=== PATIENT | male | born 1985 | race Caucasian/White ===

== ENCOUNTER 2019-06-16 11:25 | Emergency (ER) | payer OTHER, SELFPAY ==
[2019-06-16 11:36] VITALS: BP 175/83; PULSE 67; RESP 18; TEMP 36.6; O2SAT 98; BMI 31.6
[2019-06-16 13:35] VITALS: BP 156/94
--- NOTE | 2019-06-16 13:45 | ED_ITS ---
HPI - Male Genitourinary General: Chief complaint: Urogenital-Male [facility] Time Seen by Provider: 06/16/19 13:31 Source: patient Mode of arrival: ambulatory Limitations: no limitations History of Present Illness: HPI Narrative: Patient is a 33-year-old male who [facility] to ED [facility] that began yesterday; patient states pain began gradually and first noticed after he sat down; he denies testicular swelling or redness; no difficulty urinating, hematuria, dysuria; denies penile discharge, rashes/lesions, new sexual partners, or concern for STDs; no injury/trauma although does remember cutting wood yesterday before it started; patient reports since onset pain has seemed to wax and wane and is improved with lying down Complaint: testicle pain Onset (ago): day(s) Duration: intermittent Location: right testicle Quality: sharp Relieving factors: supine Associated symptoms: Reports no associated symptoms; Deny dysuria, hematuria, nausea, urinary incontinence or vomiting Related Data: Sexually active: Yes (monogamous with ) Review of Systems Const: Denies: fever or chills GI: Denies: abdominal pain, nausea or vomiting : Reports: testicular pain; Denies: flank pain, difficulty urinating, painful urination, urinary frequency, urinary urgency, urinary hesitancy, difficulty starting urination, change in urine stream, urinary incontinence, blood in urine, genital lesion, penile discharge or testicular mass PFSH ED PFSH: Statuses (acute, chronic, etc) shown below reflect problem list status as previously entered and may not be historically accurate Social History Smoking and tobacco status: former smoker Physical Exam Const: COMMON NORMALS: no apparent distress, average body habitus, oriented x3, no limitations, healthy appearing, alert and well nourished GI: COMMON NORMALS: normal to inspection, nondistended, normoactive bowel sounds, soft to palpation, non-tender, no hepatosplenomegaly and no masses PALPATION: Yes soft and Yes no hepatosplenomegaly : COMMON NORMALS: Yes no scrotal swelling and Yes no hernias present MALE GROIN/PERINEUM EXAM: No erythema, No hernia and No inguinal lymphadenopathy PENIS: normal penis MEATUS: meatus normal SCROTUM: Yes tenderness (R superior scotum/R inguinal region), No erythematous, No edematous and No scrotal swelling TESTES: Yes testicular lie normal, No enlarged testicle(s), No testicular swelling, No testicular mass, Yes epididymides normal and No epididymal induration Neuro: COMMON NORMALS: oriented x3 SENSORIUM/ORIENTATION: Yes alert Skin: COMMON NORMALS: no rashes or lesions noted GENERAL SKIN EXAM: no rashes or lesions noted Course Vital Signs: Vital signs: Vital Signs Temperature 97.8 F 06/16/19 11:36 Pulse Rate 80 06/16/19 14:57 Respiratory Rate 16 06/16/19 14:57 Blood Pressure 150/103 06/16/19 14:57 Pulse Oximetry 97 06/16/19 14:57 MDM - Male Lab Data: Labs: Lab Results 06/16/19 Range/Units 14:25 Urine Color Yellow (Yellow) Urine Appearance Clear (CLEAR) Urine pH 5 (5-7) Ur Specific Gravit y 1.020 (1.005-1.030) Urine Protein Neg (Negative) Urine Glucose (UA) Norm (Normal) Urine Ketones Negative (Negative) Urine Occult Blood Neg (Negative) Urine Nitrate Negative (Negative) Urine Bilirubin Neg (NEGATIVE) Urine Urobilinogen Norm (Negative) mg/dL Ur Leukocyte Saiar ase Negative (Negative) Imaging Data: US: Radiologist's impression: [place] [address] Ultrasound Report Signed Patient: Jake Woo Unit #: [id number] : 1985 Age/Sex: 33 / M ADM Date: 06/16/19 Loc: ER Room/Bed: Attending Dr: Ordering Provider/Ordering MD: Patricia Marquez Date of Service: 06/16/19 Procedure(s): US scrotum 54999 Accession Number(s): [id number] Report Number: [id number] WS: [id number] TESTICULAR ULTRASOUND HISTORY: RIGHT testicular pain. COMPARISON: None available. TECHNIQUE: Real-time and color Doppler imaging or utilized to perform a testicular ultrasound. Right testicle: 4.4 cm x 3.5 cm x 2.7 cm. Normal size and echogenicity. No mass or torsion. Normal color Doppler is present throughout. Systolic and diastolic velocities are both present. No significant hydrocele. Right epididymis: Normal epididymis with no increased vascularity. Left testicle: 4.8 cm x 3.1 cm x 2.8 cm. Normal size and echogenicity. No mass or torsion. Normal color Doppler is present throughout. Systolic and diastolic velocities are both present. No significant hydrocele. Left epididymis: Normal epididymis with no increased vascularity. US/US scrotum 50005 IMPRESSION: NORMAL TESTICULAR ULTRASOUND. Dictated By: Priscilla Hebert DO Signed By: Priscilla Hebert DO Signed Date/Time: 06/16/191415 DD/ 141 Discharge Plan Discharge Patient Disposition: Home, Self-Care Clinical Impression: Strain of right inguinal muscle Qualifiers: Encounter type: initial encounter Qualified Code(s): S39.013A - Strain of muscle, fascia and tendon of pelvis, initial encounter Condition: Stable Discharge Orders: Discharge Order (Routine); Ordered 06/16/19 Ordered By: Patricia Marquez Referrals: Jere Ruiz DO [Primary Care Provider] - Discharge Diet: Usual diet Discharge Activity: Increase activity as tolerated Activity Restrictions/Additional Instructions: As discussed return to ED for worsening pain, scrotal redness/swelling, urinary symptoms or any other concerning symptoms. Otherwise follow-up with primary care in 3 to 5 days if pain persists. Discharge Date/Time: 06/16/19 14:59 Coding Level of Care Code ED [employer] Solution Architect for Geronimo Hearn Exam Problem Focused
--- NOTE | 2019-06-16 14:05 | PC.NURSE ---
portable ultrasound at bedside
--- NOTE | 2019-06-16 14:22 | PC.NURSE ---
pt transported to CT, ambulatory with tech
[2019-06-16 14:28] LABS: Add Urine Microscopic? NO
[2019-06-16] MEDS: morphine 4 mg/mL SDV 1 mL IM (14:29)
[2019-06-16 14:31] LABS: Urine Appearance Clear (CLEAR); Urine Color Yellow (Yellow); pH Urine 5 (5-7)
[2019-06-16 14:33] LABS: Bilirubin Urine Neg (NEGATIVE); Blood Urine Neg (Negative); Glucose Urine UA Norm (Normal); Ketones Urine Negative (Negative); Leukocyte Esterase Urine Negative (Negative); Nitrate Urine Negative (Negative); Protein Urine Neg (Negative); Urobilinogen Urine Norm (Negative)
[2019-06-16 14:57] VITALS: BP 150/103; PULSE 80; RESP 16; O2SAT 97
== END 2019-06-16 14:59 | disposition home or self-care (01) ==
PROVIDERS: Emergency Provider Physician Assistant; Family Provider Emergency Medicine Emergency Medical Services; PCP Emergency Medicine Emergency Medical Services
DX: S39.013A Strain of muscle, fascia and tendon of pelvis, initial encounter (principal); X58.XXXA Exposure to other specified factors, initial encounter; Z87.891 Personal history of nicotine dependence
CPT/HCPCS: 76870; 81003; 96372; 99282; A9270; J2270

== ENCOUNTER → 2020-06-01 09:36 | Outpatient (BNVA) | payer OTHER, SELFPAY | PROVIDERS: Family Provider Emergency Medicine Emergency Medical Services; PCP Emergency Medicine Emergency Medical Services; Visit Provider Podiatrist Foot & Ankle Surgery | DX: M79.672 Pain in left foot (principal) | CPT/HCPCS: 73610; 73630 ==

== ENCOUNTER 2021-03-28 10:40 | Emergency (ER) | payer OTHER, SELFPAY ==
[2021-03-28 10:49] VITALS: BP 133/76; PULSE 69; RESP 18; TEMP 36.7; O2SAT 98; BMI 31.4
[2021-03-28 11:02] VITALS: BP 133/79; PULSE 79; RESP 18; TEMP 37; O2SAT 97
--- NOTE | 2021-03-28 11:06 | W.ED.PSYCHS ---
HPI - Psych General: Chief Complaint: Psychiatric Symptoms Stated Complaint: SI Time Seen by Provider: 03/28/21 10:51 History of Present Illness: HPI Narrative: Mr Woo is a 35-year-old gentleman with significant past medical history of depression and PTSD who presents emergency department for psychiatric evaluation. 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 He does have a history of suicide attempts approximately 3-1/2 years ago, he was subsequently prolonged hospitalization for medical stabilization. He reports that he is currently on fluoxetine and sumatriptan and has had well-controlled symptoms. The only time that he endorses significant symptoms of depression/SI is when he missed doses. Last week he was busy with work and missed a dose and had a thought of driving his truck off a bridge. He denies actual attempt to recently. He has since been compliant with his medication and has not had recurrent symptoms. He was seen at the [facility] today and they sent him here for further evaluation. He otherwise denies medical complaints. No other specific exacerbating or relieving factors. Review of Systems General: Reports: 10 or more systems reviewed and unremarkable except in HPI and below PFSH ED PFSH: Medical History (Updated 03/28/21 @ 13:13 by Sanchez Khoury MD) Broken finger Broken rib Foot drop, bilateral Peroneal nerve injury PTSD (post-traumatic stress disorder) TBI (traumatic brain injury) Family History (Updated 06/01/20 @ 10:07 by Dalia Hutchinson LPN) Father Colon cancer Cancer Social History (Updated 06/01/20 @ 10:13 by Dalia Hutchinson LPN) Smoking and tobacco status: former smoker Second hand smoke exposure: Yes Alcohol intake: current Alcohol intake frequency: few times a week Alcohol type: hard liquor Desire information about alcohol rehabilitation?: No Counseling given: Yes Desire information about substance/drug rehabilitation?: No Counseling given: No Adopted: No Caregiver/support person: Yes Lives independently: Yes Household members: spouse Housing: House Marital status: Number of children: 2 Highest education level completed: Associate Degree: Occupational, Technical, Vocational Program service: Yes Current occupational status: unemployed Pets and animals: Yes History of recent travel: No Leisure activites: games, fishing and other Leisure activities details: driving Sexually active: Yes Current gender identity: Male Zoila/Mu-Ism: Yazdanism Special zoila needs: No Agree to transfusion: Yes Financial difficulty paying for basics: Somewhat Hard Physical Exam Narrative: EXAM NARRATIVE: GENERAL/CONSTITUTIONAL -well appearing. No acute distress. Eyes -no scleral icterus, no conjunctival injection ENMT - Atraumatic external nose and ears. Moist mucous membranes NECK - supple. trachea midline CARDIOVASCULAR - regular rate and rhythm. RESPIRATORY -clear to auscultation bilaterally. ABDOMEN/GI - Nontender, Nondistended. MSK - Extremities without obvious deformity or tenderness to palpation SKIN - Warm, Dry NEURO - alert and appropriately oriented. Moves all extremities equally. PSYCH - Appropriate mood and affect. Linear and goal oriented. Denies SI or HI. Course ED course: - Patient was seen and evaluated by me at bedside -Vital signs obtained - Initial evaluation notable for no acute distress, nontoxic appearance. - Given history labs held at this time with exception of urinalysis which was already collected, negative for infection. - Psychiatry consulted and evaluated the patient. Patient okay for discharge - Upon serial reexamination after treatment the patient was similar - Based on patient history, evaluation, labs, and imaging as interpreted the most likely cause of the patient's condition is psychiatric disorder without current SI or HI - The results of ED evaluation were discussed with the patient including prescriptions and/or symptomatic cares (if applicable) including appropriate and responsible use, followup plan, and return precautions. The patient verbalized understanding and felt safe for discharge. - Patient discharged in satisfactory condition. Vital Signs: Vital signs: Vital Signs Temperature 98.4 F 03/28/21 13:43 Pulse Rate 78 03/28/21 13:43 Respiratory Rate 18 03/28/21 13:43 Blood Pressure 125/86 03/28/21 13:43 Pulse Oximetry 95 03/28/21 13:43 MDM - Psych Lab Data: Labs: Lab Results 03/28/21 11:35 Urine Color Yellow (Yellow) Urine Appearance Clear (CLEAR) Urine pH 5 (5-7) Ur Specific Gravit y 1.020 (1.005-1.030) Urine Protein Neg (Negative) Urine Glucose (UA) Norm (Normal) Urine Ketones Negative (Negative) Urine Blood Neg (Negative) Urine Nitrate Negative (Negative) Urine Bilirubin Neg (Negative) Urine Urobilinogen Norm mg/dL mg/dL (Negative) Ur Leukocyte Saira ase Negative (Negative) Discharge Plan Discharge Patient Disposition: Home Clinical Impression: Psychiatric complaint Condition: Stable Prescriptions: No Action omeprazole magnesium [Acid Tube Coverer (omeprazole)] 20 mg capsule,delayed release(DR/EC) 20 mg PO QAM RF: 0 acetaminophen [Tylenol Extra Strength] 500 mg tablet 1,000 mg PO QID PRN (Reason: Pain) RF: 0 naproxen 500 mg tablet 500 mg PO BID PRN (Reason: Pain) RF: 0 All Day Allergy (cetirizine) 10 mg capsule 10 mg PO QAM RF: 0 sumatriptan succinate 50 mg tablet 50 mg PO Q2H PRN (Reason: Migraine Headache) RF: 0 thiamine HCl (vitamin B1) 100 mg Tablet 100 mg PO DAILY RF: 0 prazosin 5 mg Capsule 5 mg PO BEDTIME RF: 0 Benadryl 25 mg Capsule 25 mg PO BEDTIME RF: 0 Prozac 20 mg Capsule 20 mg PO QAM RF: 0 Flonase 50 mcg/actuation Robertson,Suspension 2 spray INTRANASAL DAILY PRN (Reason: Allergy Symptoms) RF: 0 Vitamin D3 50 mcg (2,000 unit) Capsule 50 mcg PO DAILY RF: 0 Discharge Orders: Discharge ED (Routine); Ordered 03/28/21 Ordered By: Sanchez Khoury Referrals: Jere Ruiz, DO [Primary Care Provider] - Discharge Diet: Usual diet Discharge Activity: Resume usual activity Patient Instructions: Suicide Prevention (ED), Opioid Safety Activity Restrictions/Additional Instructions: Thank you for visiting the emergency department. You were seen and evaluated for psychiatric concerns. After evaluation in the emergency department and by a psychiatrist it is safe to discharge you home. I recommend to continue follow-up with your psychiatric care provider and primary care provider. Return to the emergency department for anything that you are concerned about and feel needs emergency department evaluation. Return to an emergency department for any suicidal thoughts. Coding Level of Care Code ED Un[employer] Hearing Officer for Geronimo Hearn
[2021-03-28 11:15] VITALS: BP 133/76; PULSE 76; RESP 17; O2SAT 98
[2021-03-28 11:50] LABS: Add Urine Microscopic? NO; Charge for UA Resulting for Rev
[2021-03-28 11:54] LABS: Bilirubin Urine Neg (Negative); Blood Urine Neg (Negative); Glucose Urine UA Norm (Normal); Ketones Urine Negative (Negative); Leukocyte Esterase Urine Negative (Negative); Nitrate Urine Negative (Negative); Protein Urine Neg (Negative); Urine Appearance Clear (CLEAR); Urine Color Yellow (Yellow); Urobilinogen Urine Norm (Negative); pH Urine 5 (5-7)
[2021-03-28 12:45] VITALS: BP 125/86; PULSE 86; RESP 17; O2SAT 98
[2021-03-28 13:43] VITALS: BP 125/86; PULSE 78; RESP 18; TEMP 36.9; O2SAT 95
== END 2021-03-28 13:45 | disposition home or self-care (01) ==
PROVIDERS: Family Medicine; Emergency Provider Emergency Medicine; PCP Emergency Medicine Emergency Medical Services
DX: F43.12 Post-traumatic stress disorder, chronic (principal); Y36.90XA War operations, unspecified, initial encounter
CPT/HCPCS: 81003; 99283

== ENCOUNTER 2021-10-12 22:01 | Emergency (ER) | payer OTHER, SELFPAY ==
[2021-10-12 22:05] VITALS: BP 127/74; PULSE 65; RESP 14; TEMP 36.6; O2SAT 98
--- NOTE | 2021-10-12 23:17 | W.ED.ABDPA2 ---
HPI - Abdominal Pain General: Chief Complaint: Abdominal Pain Stated Complaint: abd pain Time Seen by Provider: 10/12/21 23:16 History of Present Illness: Mr Woo is a 35-year-old gentleman with complex past medical history including history of left leg nerve damage presenting to the emergency department due to left groin pain and concern for hernia. He reports largely being at his baseline health the past few days. 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 He was able to reduce this bulge and it occasionally recurs. He describes it worse with lying flat or standing up. He denies recent changes in bowel movements or ability to pass flatus. No urinary symptoms. No history of similar. No scrotal pain/testicular pain. Intensity symptoms mild to moderate. Worse with palpation and movement. No other specific changes in health, exacerbating, or alleviating factors identified. Onset (ago): hour(s) Pain Consistency: intermittent Location: Groin Quality: aching and sharp Exacerbating factors: movement Review of Systems General: Reports: 10 or more systems reviewed and unremarkable except in HPI and below PFSH ED PFSH: Medical History Broken finger Broken rib Foot drop, bilateral Peroneal nerve injury PTSD (post-traumatic stress disorder) TBI (traumatic brain injury) Family History Father Colon cancer Cancer Social History Smoking and tobacco status: former smoker Second hand smoke exposure: Yes Alcohol intake: current Alcohol intake frequency: few times a week Alcohol type: hard liquor Desire information about alcohol rehabilitation?: No Counseling given: Yes Desire information about substance/drug rehabilitation?: No Counseling given: No Adopted: No Caregiver/support person: Yes Lives independently: Yes Household members: spouse Housing: House Marital status: Number of children: 2 Highest education level completed: Associate Degree: Occupational, Technical, Vocational Program service: Yes Current occupational status: unemployed Pets and animals: Yes History of recent travel: No Leisure activites: games, fishing and other Leisure activities details: driving Sexually active: Yes Current gender identity: Male Zoila/Christianity: Denominational Special zoila needs: No Agree to transfusion: Yes Financial difficulty paying for basics: Somewhat Hard Physical Exam Const: COMMON NORMALS: alert GENERAL APPEARANCE: cooperative and well developed HENMT: COMMON NORMALS: normocephalic and atraumatic HEAD & SCALP: normocephalic and atraumatic Eye: COMMON NORMALS: conjunctivae normal CONJUNCTIVA: Yes conjunctivae normal SCLERA: sclerae normal Neck/C-Spine: COMMON NORMALS: supple GENERAL: Yes trachea midline Resp: COMMON NORMALS: normal respiratory effort EFFORT & INSPECTION: Yes able to speak in complete sentences Cardio: COMMON NORMALS: regular rate and regular rhythm RATE: regular rate RHYTHM: regular rhythm GI: COMMON NORMALS: Soft to palpation PALPATION: Yes Soft to palpation and No Tenderness to palpation present (GI) PERCUSSION: normal to percussion : OTHER: Tenderness palpation left inguinal region though no palpable masses identified, no evidence of hernia or palpable defect in abdominal wall. No scrotal tenderness. Extremity: GENERAL: Yes normal exam except as noted and No edema Neuro: COMMON NORMALS: moves all extremities SENSORIUM/ORIENTATION: Yes alert and No Orientation impaired Psych: COMMON NORMALS: mental status grossly normal and Normal thought process present THOUGHT PROCESS: Normal thought process present Course ED course: - Patient was seen and evaluated by me at bedside -Vital signs obtained - Initial evaluation notable for exam as above -Discussed possible etiologies and further evaluation with the patient. It is possible the patient has small nonincarcerated easily reducible hernia though this is not appreciated on clinical exam. Other considerations include hydrocele noted no testicular pain or abnormality identified. I offered CT scan though did discuss in the patient's clinical context low likelihood of clinically significant finding that would emergently exchange mechanic. Patient comfortable foregoing end follow-up with primary care provider. - Based on patient history, evaluation, and testing as interpreted the most likely cause of the patient's condition is groin pain - The results of ED evaluation were discussed with the patient including prescriptions and/or symptomatic cares (if applicable) including appropriate and responsible use, followup plan, and return precautions. The patient verbalized understanding and felt safe for discharge. - Patient discharged in satisfactory condition. Note: Click bubbles or prepopulated gregory in note writing are used for assistance with data collection and billing and are inherently more limited than narrative and other text portions of this note. Please use narrative for additional clinical history and defer to narrative/free test for any case of contradictory information. If information appears in only free text or click bubble it should be considered present or absent as reported. Please contact note physician underwriter for clarifications of clinical information or contradictory information. MDM is a brief summary, contradictory or erroneous seeming information should be clarified and full note should be reviewed. Vital Signs: Vital signs: Vital Signs Temperature 97.9 F 10/12/21 22:05 Pulse Rate 65 10/12/21 22:05 Respiratory Rate 14 10/12/21 22:05 Blood Pressure 127/74 10/12/21 22:05 Pulse Oximetry 98 10/12/21 22:05 MDM - Abdominal Pain Medical Decision Making 35-year-old gentleman presenting with palpable bulge and pain in the left groin. Bulge not appreciated on exam, patient reports reducibility, unclear if patient has hernia however no evidence of incarceration or strangulation clinical history or exam. Satisfactory for outpatient management. Medical Records I reviewed the patient's medical records. Lab Data I reviewed the patient's lab results. Discharge Plan Discharge Patient Disposition: Home Clinical Impression: Left groin pain Condition: Stable Prescriptions: No Action omeprazole magnesium [Acid Dental Surgery Doctor (omeprazole)] 20 mg capsule,delayed release(DR/EC) 20 mg PO QAM 0RF acetaminophen [Tylenol Extra Strength] 500 mg tablet 1,000 mg PO QID PRN (Reason: Pain) 0RF naproxen 500 mg tablet 500 mg PO BID PRN (Reason: Pain) 0RF All Day Allergy (cetirizine) 10 mg capsule 10 mg PO QAM 0RF sumatriptan succinate 50 mg tablet 50 mg PO Q2H PRN (Reason: Migraine Headache) 0RF Rx Instructions: do not exceed 4 doses per 24 hrs thiamine HCl (vitamin B1) 100 mg Tablet 100 mg PO DAILY 0RF prazosin 5 mg Capsule 5 mg PO BEDTIME 0RF Benadryl 25 mg Capsule 25 mg PO BEDTIME 0RF Prozac 20 mg Capsule 20 mg PO QAM 0RF Flonase 50 mcg/actuation Brewer,Suspension 2 spray INTRANASAL DAILY PRN (Reason: Allergy Symptoms) 0RF Vitamin D3 50 mcg (2,000 unit) Capsule 50 mcg PO DAILY 0RF Discharge Orders: Discharge ED (Routine); Ordered 10/12/21 Ordered By: Sanchez Khoury Referrals: Jere Ruiz, DO [Primary Care Provider] - Discharge Diet: Usual diet Discharge Activity: Increase activity as tolerated Patient Instructions: Inguinal Hernia (ED) Activity Restrictions/Additional Instructions: Thank you for visiting the emergency department. You were seen and evaluated for groin pain. The exact cause of your symptoms is unclear though may be related to reducible hernia or perhaps hydrocele. This can be further evaluated in the outpatient setting. Please follow-up with your primary care provider. Please return to the emergency department for uncontrolled pain, any bulge that is not reducible, any changes in ability to have bowel movement, or anything else that you are concerned about a feel needs emergency department evaluation. Coding Level of Care Code ED Veneer Taping Machine Offbearer for Geronimo Hearn
--- NOTE | 2021-10-13 00:22 | PC.NURSE ---
Patient discharged home with spouse. No IV inserted. Discharge packet given to patient with verbal understanding of discharge instructions. Patient instructed to see primary care physician.
== END 2021-10-12 23:45 | disposition home or self-care (01) ==
PROVIDERS: Emergency Provider Emergency Medicine; PCP Emergency Medicine Emergency Medical Services
DX: R10.32 Left lower quadrant pain (principal); Z87.891 Personal history of nicotine dependence
CPT/HCPCS: 99282

== ENCOUNTER 2022-12-27 12:50 | Emergency (ER) | payer OTHER, SELFPAY ==
[2022-12-27 12:54] VITALS: BP 138/84; PULSE 80; RESP 16; TEMP 36.7; O2SAT 98
--- NOTE | 2022-12-27 13:03 | ECG_ITS ---
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 Measurements Intervals [place] Rate: 76 P: 47 AR: 137 QRS: 59 QRSD: 94 T: 43 QT: 355 QTc: 400 Interpretive Statements SINUS RHYTHM WITH SINUS ARRHYTHMIA Compared to ECG 01/18/2016 18:03:59 Sinus bradycardia no longer present Electronically Signed On 12-27-2022 16:07:52 CDT by Praveen Da Silva M.D. [email or web address]
--- NOTE | 2022-12-27 13:18 | ED_ITS ---
HPI - Chest Pain General: Chief Complaint: Chest Pain Stated Complaint: chest pains, numbness in arm Time Seen by Provider: 12/27/22 13:03 Source: patient Mode of arrival: ambulatory Limitations: no limitations History of Present Illness: Patient is a 37-year-old male with past medical history of hypertension, anxiety, GERD, and PTSD who presents to the emergency room complaining of left chest pain onset 3-4 weeks. Patient states that the chest pain began unprovoked although remembers it starting while on vacation and states they had been doing a lot of kayaking. He states pain has seemed to come and go since that period. He feels like it is worsened with anxiety/stress/agitation. He does feel like approximately 2 weeks ago the pain become more frequent but attributes it to a bad neighbor situation that has caused him a great deal of stress. He is reporting that he feels like he cannot take a deep breath and feels like breathing is labored. He feels sometimes deep inhalation will cause the pain. He has never had this pain before and aside from hypertension he denies any personal history of cardiac disease. He describes the pain as intermittently sharp, and is like something is trying to beat out of my chest . He denies any peripheral edema, palpitations, or any other symptoms. Approximately a few months ago, he was reportedly hospitalized and treated for a hypertensive urge ncy, and was prescribed prazosin to both treat his nightmares and hypertension. However, he states he has not filled this prescription and has not taken anything for his high blood pressure. MD complaint: chest pain Onset (ago): week(s) Timing of current episode: episodic Pain location: left chest and posterior Pain radiation: left arm Severity: moderate Pain scale (0-10): 7 Quality: sharp and other ( Something is trying to get out of my chest ) Relieving factors: rest Exacerbating factors: inspiration and palpation Associated symptoms: Reports diaphoresis and dyspnea (feels like he cannot take a deep breath); Deny abdominal pain, fever(s), nausea, palpitations, syncope or vomiting Review of Systems Const: Reports: diaphoresis; Denies: fever(s), chills, body aches, change in appetite, change in weight, fa tigue or malaise Eyes: Denies: change in vision or blurry vision Card: Reports: chest pain; Denies: palpitations, irregular heart rhythm, edema, swelling of feet/ankles, lightheadedness, syncope, pre-syncope, dyspnea on exertion, orthopnea, leg pain with exertion or acrocyanosis Resp: Reports: dyspnea (feels like he cannot take a deep breath) and pain on inspiration; Denies: productive cough, non-productive cough, wheezing, stridor, change in phlegm color, hemoptysis or chest congestion GI: Denies: abdominal pain, nausea, vomiting, heartburn, diarrhea or constipation : Denies: flank pain, difficulty urinating, dysuria or urinary frequency Musc: Denies: neck pain, back pain, extremity pain, extremity swelling or joint pain Skin/Breast: Denies: rash Neuro: Reports: numbness in extremities; Denies: headache(s), weakness in extremities, sensory changes or dizziness Psych: Reports: anxiety; Denies: depression, hopelessness, suicidal ideation or homicidal ideation PFSH ED PFSH: Medical History Broken finger Broken rib Foot drop, bilateral Peroneal nerve injury PTSD (post-traumatic stress disorder) TBI (traumatic brain injury) Family History Father Colon cancer Cancer Social History Smoking and tobacco status: former smoker Second hand smoke exposure: Yes Alcohol intake: current Alcohol intake frequency: few times a week Alcohol type: hard liquor Desire information about alcohol rehabilitation?: No Counseling given: Yes Substance/Drug Use: current Substance/Drug use frequency: few times a week Desire information about substance/drug rehabilitation?: No Counseling given: No Adopted: No Caregiver/support person: Yes Lives independently: Yes Household members: spouse Housing: House Marital status: Number of children: 2 Highest education level completed: Associate Degree: Occupational, Technical, Vocational Program service: Yes Current occupational status: unemployed Pets and animals: Yes Leisure activites: games, fishing and other Leisure activities details: driving Sexually active: Yes Do you think of yourself as: Straight/Heterosexual Current gender identity: Male Zoila/Yazidi: Roman Catholic Special zoila needs: No Agree to transfusion: Yes Financial difficulty paying for basics: Somewhat Hard Physical Exam Const: COMMON NORMALS: no acute distress, patient oriented x3, no limitations, alert and well nourished GENERAL APPEARANCE: cooperative and comfortable ORIENTATION/CONSCIOUSNESS: Yes awake, Yes oriented to person, Yes oriented to place and Yes oriented to time HENMT: COMMON NORMALS: normocephalic and atraumatic HEAD & SCALP: normal to inspection, normocephalic and atraumatic Eye: COMMON NORMALS: no scleral icterus Neck/C-Spine: COMMON NORMALS: full ROM, no lymphadenopathy, supple, no meningeal signs and no JVD Chest: COMMONS NORMALS: normal inspection of the chest OTHER: chest pain is reproducible to palpation primarily along the lower anteriomedial chest Resp: COMMON NORMALS: normal respiratory effort and clear to auscultation bilaterally AUSCULTATION: clear to auscultation bilaterally Cardio: COMMON NORMALS: no JVD, regular rate and regular rhythm RATE: regular rate RHYTHM: regular rhythm GI: COMMON NORMALS: Normal to inspection, nondistended, normoactive bowel sounds present, Soft to palpation, No hepatosplenomegaly present and no masses INSPECTION: Yes normal to inspection AUSCULTATION: Yes normoactive bowel sounds PALPATION: Yes Soft to palpation, Yes Tenderness to palpation present (GI) Details: LUQ, No Guarding due to palpation present (GI), No Rigid due to palpation and Yes No hepatosplenomegaly present : COMMON NORMALS: Yes no CVA tenderness BLADDER/KIDNEY EXAM: Yes no CVA tenderness Back/Pelvis: COMMON NORMALS: no CVA tenderness, thoracic and lumbar spine normal to inspection, no thoracic nor lumbar tenderness and thoraco-lumbar ROM normal OTHER: There is mild tenderness to the left parathoracic muscles. Extremity: COMMON NORMALS: normal to inspection, full ROM, capillary refill normal, no joint enlargement, no clubbing, cyanosis or edema, no calf tenderness and no pedal edema GENERAL: Yes normal exam except as noted Neuro: ISABELLA COMA SCALE: document GCS findings Isabella coma scale eye opening: Spontaneous [place] coma scale verbal response: Orientated [place] coma scale motor response: Obey commands Isabella coma scale total score: 15 COMMON NORMALS: patient oriented x3, moves all extremities, no focal motor deficits and no sensory deficits noted SENSORIUM/ORIENTATION: Yes alert, Yes oriented to person, Yes oriented to place and Yes oriented to time MENINGEAL SIGNS: Yes no meningeal signs Skin: COMMON NORMALS: no rashes or lesions noted GENERAL SKIN EXAM: no rashes or lesions noted Course Vital Signs: Vital signs: Vital Signs Temperature 98.0 F 12/27/22 12:54 Pulse Rate 67 12/27/22 15:00 Respiratory Rate 18 12/27/22 15:00 Blood Pressure 135/89 12/27/22 15:00 Pulse Oximetry 98 12/27/22 15:00 Oxygen Delivery Me thod Room Air 12/27/22 15:00 MDM - Chest Pain Medical Decision Making Patient on patient's history I have a low suspicion for acute coronary syndrome. There is some degree of reproducibility of his pain to his left chest wall. He does not describe any exertional symptoms. He does feel like symptoms seem to be worse with stress/anxiety/agitation. He has no previous cardiac history. No risk factors for CAD (he does report previous history of hypertension although it has been controlled without medication recently). He arrives here in no acute distress and with normal vital signs. His initial EKG showing sinus rhythm with no concerns for ischemia. Work-up today including CBC, CMP, D-dimer are unremarkable. His baseline troponin surprisingly was elevated at 19. 2- hour troponin resulting at 6. Patient's baseline troponin most likely was a lab error. At this time patient is stable for discharge from an emergency standpoin t. Recommend he follow-up with his PCP through the [facility]. They can refer to cardiology or order outpatient stress testing if indicated. Return ED precautions given. Lab Data 12/27/22 13:39 12/27/22 13:39 Radiology Impressions Chest X-Ray 12/27/22 13:28 Impression: Negative chest. Laboratory Results WBC 8.2 10^3/uL (4.0-10.0) 12/27/22 13:39 RBC 5.23 10^6/uL (4.1-5.3) 12/27/22 13:39 Hgb 15.9 g/dL (11.7-16.6) 12/27/22 13:39 Hct 44.5 % (42.0-52.0) 12/27/22 13:39 MCV 85.1 fl (80-94) 12/27/22 13:39 MCH 30.4 pg (28.0-34.0) 12/27/22 13:39 MCHC 35.7 g/dL (30.0-36.0) 12/27/22 13:39 RDW 12.0 % (12.1-15.1) L 12/27/22 13:39 Plt Count 269 10^3/cmm (130-400) 12/27/22 13:39 MPV 9.9 fL (7.4-10.4) 12/27/22 13:39 Neut % (Auto) 62.0 % 12/27/22 13:39 Lymph % (Auto) 27.5 % 12/27/22 13:39 [place] % (Auto) 7.6 % 12/27/22 13:39 Eos % (Auto) 1.7 % 12/27/22 13:39 Baso % (Auto) 1.0 % 12/27/22 13:39 Neut # (Auto) 5.08 10^3/uL (1.8-7.7) 12/27/22 13:39 Lymph # (Auto) 2.3 10^3/uL (0.8-4.8) 12/27/22 13:39 [place] # (Auto) 0.6 10^3/uL (0.2-0.9) 12/27/22 13:39 Eos # (Auto) 0.1 10^3/uL (0.0-0.8) 12/27/22 13:39 Baso # (Auto) 0.1 10^3/uL (0.0-0.1) 12/27/22 13:39 Nucleated RBC % (auto) 0 % 12/27/22 13:39 Nucleated RBCs # 0.0 /100WBC 12/27/22 13:39 D-Dimer 0.30 ug/mIFEU (0-0.59) 12/27/22 13:39 Sodium 139 mmol/L (136-145) 12/27/22 13:39 Potassium 4.0 mmol/L (3.5-5.1) 12/27/22 13:39 Chloride 103 mmol/L (98-107) 12/27/22 13:39 Carbon Dioxide 24 mmol/L (22-29) 12/27/22 13:39 Anion Gap 16.0 (5-19) 12/27/22 13:39 BUN 11 mg/dL (6-20) 12/27/22 13:39 Creatinine 0.8 mg/dL (0.7-1.2) 12/27/22 13:39 GFR Calculation 108.8 mL/min (90-130) 12/27/22 13:39 Glucose 105 mg/dL (65-115) 12/27/22 13:39 Calculated Osmolality 288 mOsm/kg (285-295) 12/27/22 13:39 Calcium 9.3 mg/dL (8.5-10.5) 12/27/22 13:39 Total Bilirubin 0.6 mg/dL (0.15-1.2) 12/27/22 13:39 AST 23 U/L (0-40) 12/27/22 13:39 ALT 34 U/L (0-41) 12/27/22 13:39 Alkaline Phosphatase 68 U/L (40-130) 12/27/22 13:39 Troponin T Gen 5 ng/L 6 ng/L (0-15) 12/27/22 15:21 Total Protein 6.5 g/dL (6.6-8.7) L 12/27/22 13:39 Albumin 4.7 g/dL (3.5-5.2) 12/27/22 13:39 Globulin 1.8 g/dL (1.3-4.6) 12/27/22 13:39 Lipase 28 U/L (13-60) 12/27/22 13:39 Urine Color Yellow (Yellow) 12/27/22 14:15 Urine Appearance Clear (CLEAR) 12/27/22 14:15 Urine pH 5 (5-7) 12/27/22 14:15 Ur Specific [place] 1.025 (1.005-1.030) 12/27/22 14:15 Urine Protein Neg (Negative) 12/27/22 14:15 Urine Glucose (UA) Norm (Normal) 12/27/22 14:15 Urine Ketones Negative (Negative) 12/27/22 14:15 Urine Blood Neg (Negative) 12/27/22 14:15 Urine Nitrate Negative (Negative) 12/27/22 14:15 Urine Bilirubin Neg (Negative) 12/27/22 14:15 Urine Urobilinogen Norm mg/dL (Negative) 12/27/22 14:15 Ur Leukocyte Esterase Negative (Negative) 12/27/22 14:15 EKG Data 1303: NSR with sinus arrhythmia. Rate 76. Normal axis. Normal intervals. No acute ST segment changes. No previous for comparison.: I personally reviewed and interpreted this EKG as follows: EKG interpretation date: 12/27/22 EKG interpretation time: 13:03 Prior EKG tracings: not available for review Interpretation: 1303: NSR with sinus arrhythmia. Rate 76. Normal axis. Normal intervals. No acute ST segment changes. No previous for comparison. Discharge Plan Discharge Patient Disposition: Home Clinical Impression: Atypical chest pain Condition: Stable Prescriptions: No Action omeprazole magnesium [Acid Hand Endband Cutter (omeprazole)] 20 mg capsule,delayed re lease(DR/EC) 20 mg PO QAM acetaminophen [Tylenol Extra Strength] 500 mg tablet 1,000 mg PO QID PRN (Reason: Pain) naproxen 500 mg tablet 500 mg PO BID PRN (Reason: Pain) All Day Allergy (cetirizine) 10 mg capsule 10 mg PO QAM sumatriptan succinate 50 mg tablet 50 mg PO Q2H PRN (Reason: Migraine Headache) Rx Instructions: do not exceed 4 doses per 24 hrs thiamine HCl (vitamin B1) 100 mg Tablet 100 mg PO DAILY prazosin 5 mg Capsule 5 mg PO BEDTIME Benadryl 25 mg Capsule 25 mg PO BEDTIME Prozac 20 mg Capsule 20 mg PO QAM Flonase 50 mcg/actuation [place],Suspension 2 spray INTRANASAL DAILY PRN (Reason: Allergy Symptoms) Vitamin D3 50 mcg (2,000 unit) Capsule 50 mcg PO DAILY Discharge Orders: Discharge ED (Routine); Ordered 12/27/22 Ordered By: Patricia Marquez Referrals: Jere Ruiz DO [Primary Care Provider] - Activity Restrictions/Additional Instructions: As we discussed please follow-[facility] with [facility] They may refer to cardiology if they feel this is indicated. Coding Level of Care Code ED [employer] Inspector for Geronimo Hearn
--- NOTE | 2022-12-27 13:28 | XR_ITS ---
WS: [id number] Portable AP upright chest, 12/27/2022 Clinical Data: chest pain Comparison: Two-view chest, 01/18/2016. Findings: No nodules, masses or effusions are seen. The heart is normal. The pulmonary vascularity is not increased. No pneumonia or pneumothorax is seen. Monitor leads are on the chest wall. XR/XR chest 1V portable [id number] Impression: Negative chest.
[2022-12-27 13:30] VITALS: BP 150/79; PULSE 66; RESP 18; O2SAT 97
[2022-12-27 13:54] LABS: Basophils # 0.1 10^3/uL (0.0-0.1); Eosinophils # 0.1 10^3/uL (0.0-0.8); Eosinophils % 1.7 %; Hematocrit 44.5 % (42.0-52.0); Hemoglobin 15.9 g/dL (11.7-16.6); Lymphocytes # 2.3 10^3/uL (0.8-4.8); Lymphocytes % 27.5 %; Mean Corpuscular HGB Conc 35.7 g/dL (30.0-36.0); Mean Corpuscular Hemoglobin 30.4 pg (28.0-34.0); Mean Corpuscular Volume 85.1 fl (80-94); Mean Platelet Volume 9.9 fL (7.4-10.4); Monocytes # 0.6 10^3/uL (0.2-0.9); Monocytes % 7.6 %; Neutrophils # 5.08 10^3/uL (1.8-7.7); Nucleated Red Blood Cells % 0 %; Platelet Count 269 10^3/cmm (130-400); Red Blood Count 5.23 10^6/uL (4.1-5.3); White Blood Count 8.2 10^3/uL (4.0-10.0)
[2022-12-27 14:00] VITALS: BP 136/75; PULSE 78; RESP 18; O2SAT 97
--- NOTE | 2022-12-27 14:07 | PC.PHAR ---
[facility] REQUESTED [facility] AT 2:05 PM 12/27/22
[2022-12-27 14:08] LABS: Alanine Aminotransferase 34 U/L (0-41); Albumin Level 4.7 g/dL (3.5-5.2); Alkaline Phosphatase 68 U/L (40-130); Aspartate Amino Transferase 23 U/L (0-40); Blood Urea Nitrogen 11 mg/dL (6-20); Calcium 9.3 mg/dL (8.5-10.5); Carbon Dioxide 24 mmol/L (22-29); Chloride 103 mmol/L (98-107); Globulin 1.8 g/dL (1.3-4.6); Glomerular Filtration Rate 108.8 mL/min (90-130); Glucose 105 mg/dL (65-115); Osmolality Calculated 288 mOsm/kg (285-295); Sodium 139 mmol/L (136-145); Total Bilirubin 0.6 mg/dL (0.15-1.2); Total Protein 6.5 g/dL (6.6-8.7)
[2022-12-27 14:09] LABS: Lipase 28 U/L (13-60)
[2022-12-27 14:14] LABS: Troponin T (5th) Once 19 ng/L (0-15)
[2022-12-27 14:31] LABS: Add Urine Microscopic? NO; Charge for UA Resulting for Rev
[2022-12-27 14:36] LABS: Bilirubin Urine Neg (Negative); Blood Urine Neg (Negative); Glucose Urine UA Norm (Normal); Ketones Urine Negative (Negative); Leukocyte Esterase Urine Negative (Negative); Nitrate Urine Negative (Negative); Protein Urine Neg (Negative); Specific Gravity, Urine 1.025 (1.005-1.030); Urine Appearance Clear (CLEAR); Urine Color Yellow (Yellow); Urobilinogen Urine Norm (Negative); pH Urine 5 (5-7)
[2022-12-27 15:00] VITALS: BP 135/89; PULSE 67; RESP 18; O2SAT 98
[2022-12-27 15:52] LABS: Troponin T (5th) Once 6 ng/L (0-15)
[2022-12-27 16:03] VITALS: BP 146/86; PULSE 64; O2SAT 98
== END 2022-12-27 16:04 | disposition home or self-care (01) ==
PROVIDERS: Emergency Provider Physician Assistant; PCP Emergency Medicine Emergency Medical Services
DX: R07.89 Other chest pain (principal); Z87.891 Personal history of nicotine dependence; Z87.820 Personal history of traumatic brain injury
CPT/HCPCS: 36415; 71045; 80053; 81003; 83690; 84484; 85025; 85378; 93005; 99285

== ENCOUNTER 2023-02-27 06:00 | Outpatient (RCR) | payer OTHER, SELFPAY | END 2023-03-26 23:59 | disposition home or self-care (01) | LOC: MPT 06:00 | PROVIDERS: Visit Provider Emergency Medicine Emergency Medical Services | DX: M54.59 Other low back pain (principal) | CPT/HCPCS: 97110; 97162; G0283 ==

== ENCOUNTER 2023-03-27 06:00 | Outpatient (RCR) | payer OTHER, SELFPAY | END 2023-04-25 23:59 | disposition home or self-care (01) | LOC: MPT 06:00 | PROVIDERS: PCP Emergency Medicine Emergency Medical Services; Visit Provider Emergency Medicine Emergency Medical Services | DX: M54.59 Other low back pain (principal) | CPT/HCPCS: 97110; G0283 ==

== ENCOUNTER 2023-04-08 13:26 | Outpatient (CLI) | payer OTHER, SELFPAY ==
--- NOTE | 2023-04-08 13:32 | US_ITS ---
WS: [id number] THYROID ULTRASOUND HISTORY: R THYROID NODULE COMPARISON: None available. Right lobe: 1.7 cm x 1.4 cm x 5.1 cm (w x ap x l). Volume: 6.0 cm3. Normal size and echotexture. No significant are dominant nodules are present. There is a small benign -appearing cyst which may be a colloid cyst in the RIGHT thyroid towards the isthmus measuring 5 x 3 x 7 mm. No solid component. Left lobe: 1.5 cm x 1.7 cm x 5.2 cm (w x ap x l). Volume: 7.1 cm3. Normal size and echotexture. No significant or dominant nodules are present. Isthmus: 0.4 cm. IMPRESSION: 1. No solid thyroid mass. 2. TI-RADS 1; RIGHT thyroid cyst. No additional follow-up necessary.
== END 2023-04-08 13:27 | disposition home or self-care (01) ==
LOC: RAD 13:26
PROVIDERS: Visit Provider Nurse Practitioner
DX: E04.1 Nontoxic single thyroid nodule (principal)
CPT/HCPCS: 76536

== ENCOUNTER 2023-08-06 11:36 | Emergency (ER) | payer OTHER, SELFPAY ==
[2023-08-06] VITALS (34 sets, daily range): BP systolic 128–146; BP diastolic 83–103; PULSE 56–82; RESP 12–26; TEMP 36.7; O2SAT 92–100; BMI 29.0
--- NOTE | 2023-08-06 10:42 | ECG_ITS ---
[facility] [place] Date: 2023-08-06 Pat Name: Jake Woo Department: Room: Gender: Male Pediatric Medical Assistant: : 1985 Requested By: Patricia Marquez Order Number: [id number] Alvaro MD: Yayo Brooks M.D. Measurements Intervals [place] Rate: 63 P: 46 OR: 133 QRS: 51 QRSD: 100 T: 43 QT: 379 QTc: 390 Interpretive Statements SINUS RHYTHM Compared to ECG 12/27/2022 13:03:49 Sinus arrhythmia no longer present Electronically Signed On 08-06-2023 23:05:08 CDT by Yayo Brooks M.D. [email or web address] [id number]
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
--- NOTE | 2023-08-06 11:47 | XRR_ITS ---
PROCEDURE INFORMATION: Exam: XR Chest Exam date and time: 08/06/2023 12:17 PM Age: 37 years old Clinical indication: Dyspnea and shortness of breath; Additional info: Chest pain TECHNIQUE: Imaging protocol: Radiologic exam of the chest. Views: 1 view. COMPARISON: CR XR chest 1V portable [id number] 12/27/2022 1:47 PM FINDINGS: Lungs: Unremarkable. No consolidation. Pleural spaces: Unremarkable. No pleural effusion. No pneumothorax. Heart/Mediastinum: Unremarkable. No cardiomegaly. Bones/joints: Unremarkable. XR/XR chest 1V portable [id number] IMPRESSION: No acute findings.
[2023-08-06] MEDS: lidocaine 2% viscous 15 ML, aluminum-mag hydrox-simethicon 30 ML, sucralfate oral liq 1 GM PO (12:04)
--- NOTE | 2023-08-06 12:11 | PC.PHAR ---
PT IS [facility]. PT DOES KNOW HIS MEDICATIONS. PT STATES USES MEDICINAL MARIJUANA SOMETIMES. 08/06/23
[2023-08-06 12:53] LABS: Basophils # 0.1 10^3/uL (0.0-0.1); Basophils % 0.9 %; Eosinophils # 0.1 10^3/uL (0.0-0.8); Eosinophils % 1.3 %; Hematocrit 45.8 % (37-53); Lymphocytes # 1.9 10^3/uL (0.8-4.8); Lymphocytes % 25.2 %; Mean Corpuscular HGB Conc 36.2 g/dL (30-55); Mean Corpuscular Hemoglobin 31.3 pg (27-33); Mean Corpuscular Volume 86.3 fl (82-101); Mean Platelet Volume 10.2 fL (7.4-10.4); Monocytes # 0.6 10^3/uL (0.2-0.9); Monocytes % 7.8 %; Neutrophils # 4.82 10^3/uL (1.8-7.7); Neutrophils % 64.5 %; Nucleated Red Blood Cells % 0 %; Platelet Count 268 10^3/cmm (157-399); Red Blood Count 5.31 10^6/uL (3.85-5.65); Red Cell Distribution Width 12.4 % (12.1-15.1); White Blood Count 7.47 10^3/uL (3.29-11.43)
[2023-08-06 13:17] LABS: Troponin(5th) Baseline 11 ng/L (0-15)
--- NOTE | 2023-08-06 13:47 | ECG_ITS ---
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 Measurements Intervals [place] Rate: 56 P: 37 RI: 140 QRS: 44 QRSD: 100 T: 20 QT: 390 QTc: 377 Interpretive Statements SINUS BRADYCARDIA Compared to ECG 08/06/2023 10:42:06 Sinus rhythm no longer present Electronically Signed On 08-06-2023 23:22:04 CDT by Yayo Brooks M.D. [email or web address] medical [email or web address] [id number]
[2023-08-06 14:13] LABS: Alanine Aminotransferase 41 U/L (0-41); Alkaline Phosphatase 81 U/L (40-130); Aspartate Amino Transferase 31 U/L (0-40); Blood Urea Nitrogen 11 mg/dL (6-20); Calcium 9.8 mg/dL (8.5-10.5); Carbon Dioxide 23 mmol/L (22-29); Chloride 104 mmol/L (98-107); Creatinine Clr Calc Pharmacy 122.1517; Globulin 2.4 g/dL (1.3-4.6); Glomerular Filtration Rate 84.1 mL/min (90-130); Glucose 87 mg/dL (65-115); Lipase 43 U/L (13-60); Osmolality Calculated 289 mOsm/kg (285-295); Sodium 140 mmol/L (136-145); Total Bilirubin 1.5 mg/dL (0.15-1.2); Total Protein 7.4 g/dL (6.6-8.7)
[2023-08-06 14:16] LABS: Anion Gap 17.1 (5-19); Potassium 4.1 mmol/L (3.5-5.1)
== END 2023-08-06 14:36 | disposition home or self-care (01) ==
PROVIDERS: Emergency Provider Physician Assistant; PCP Emergency Medicine Emergency Medical Services
DX: R07.89 Other chest pain (principal); Z87.891 Personal history of nicotine dependence
CPT/HCPCS: 36415; 71045; 80053; 83690; 84484; 85025; 93005; 99285

== ENCOUNTER 2024-11-28 18:24 | Emergency (ER) | payer OTHER, SELFPAY ==
--- OUTSIDE RECORDS SUMMARY | 2024-02-03 09:30 | XMS_ITS ---
Author Organization [facility] Address [address] [facility] [place] [address] Care Team Providers Care Bread Racker Name Role Phone [facility] Provid er Unavailable Emi Holbrook Unavailable [phone] [place], [place] Unavailable Unavailable Joni Martínez Unavailable [phone] Allergies Allergen (clinical drug ingredient) Drug/Non Drug Allergy documented on EMR Reaction Allergy Type Onset Date Status cedar elm pollen extract [place] Elm Unknown Drug Allergy Active REASON FOR VISIT Dysphagia, unspecified type Chronic diarrhe Medications Medication SIG (Take, Route, Frequency, Duration) Notes Start Date End Date Status Pantoprazole Sodium 40 MG 1 tablet Orall y Once a day for 90 days Active Pepcid Complete 10-800-165 MG 1 tablet as needed Orally 4x a day Active Alum & Mag Hydroxide-Simeth 400-400-40 MG/5ML 10 mL as needed Orally Twice a day Active hydrOXYzine HCl 25 MG 1 tablet as needed Orally 3 x a day Active Aleve 220 MG 1 tablet with food o r milk as needed Orally every 12 hrs Active Social History Tobacco Use: Social History Observation Description Date Details (start date - stop date) Former Smoker NA - NA Tobacco Control (Standard) Question Answer Notes Tobacco use: Former smoker Encounters Encounter Location Date Provider Diagnosis [facility] [address] [place] [address] 02/03/2024 Joni Martínez Chronic diarrhea of unknown origin K52.9 ; Gastroesophageal reflux disease, unspecified whether esophagitis present K21.9 ; Nausea and vomiting, unspecified vomiting type R11.2 ; Unintended weight loss R63.4 and Dysphagia, unspecified type R13.10 Assessments Encounter Date Diagnosis (ICD Code) Assessment Notes Treatment Notes Treatment Clinical Notes Section Notes 02/03/2024 Chronic diarrhea of unknown origin (ICD-10 - K52.9) Diagnostic colonoscopy today. 02/03/2024 Gastroesophageal reflux disease, unspecified whether esophagitis present (ICD-10 - K21.9) Diagnostic EGD today. 02/03/2024 Nausea and vomiting, unspecified vomiting type (ICD-10 - R11.2) Diagnostic EGD today. 02/03/2024 Unintended weight loss (ICD-10 - R63.4) Diagnostic EGD today. 02/03/2024 Dysphagia, unspecified type (ICD-10 - R13.10) Diagnostic EGD today. Plan Of Treatment Medication Medication Name Sig Start Date Stop Date Notes Pantoprazole Sodium 40 MG 1 tablet Orall y Once a day for 90 days Treatment Notes Assessment Notes Chronic diarrhea of unknown origin Diagn ostic colonoscopy today. Gastroesophageal reflux dise ase, unspecified whether esophagitis present Diagnostic EGD today. Nausea and vomiting, unspecified vomitin g type Diagnostic EGD today. Unintended weight loss Diagnostic EGD to day. Dysphagia, unspecified type Diagnostic E GD today. 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 Dysphagia, unspecified type Chronic diarrhe. * HPI: P brittaney Note: Mr Olmos is a 38-year-old male patient of Rufina Hooks APRN here for Diagnostic EGD and colonoscopy. Complains of some breakthrough reflux despite Pepcid, epigastric pain and burning, intermittent nausea and chronic diarrhea. Reports some recent unintentional weight loss. Prior diagnostics include laboratory investigation, ultrasound of the abdomen, and CT of the abdomen. Ultrasound noted complex mass in the left lobe of the liver. Follow-up CT scan reports stable hemangioma. Fecal calprotectin and stool studies were negative. No prior EGD or colonoscopy. Family history unknown. * ROS: G eneral - Multi System: Constitutional D enies fever, chills, recent weight loss.?Cardiovascular D enies any recent chest pain. R espiratory D enies any shortness of breath, cough. G astrointestinal S ee HPI. * Medical History: C hicken Pox, Arthritis, High Blood Pressure, Stroke, Anxiety, Depression, GERD, Sleep apnea, Nausea, Traumatic brain injury, Exposure to potentially hazardous chemical. * Surgical History: n one . * Hospitalization/Major Diagno stic Procedure: [place] hypertension 2021 2022, [place], [place] hypertension anxiety 2022, [place], [place]- hypertension anxiety and stomach pain, cramps 2022. * Family History: F ather: unknown. M other: unknown. adopted. * Social History: T obacco Use: T obacco Control (Standard) T obacco use: F ormer smoker * Medications: T aking Pantoprazole Sodium 40 MG Tablet Delayed Release 1 tablet Orally Once a day , Taking Alum & Mag Hydroxide-Simeth 400-400-40 MG/5ML Suspension 10 mL as needed Orally Twice a day , Taking hydrOXYzine HCl 25 MG Tablet 1 tablet as needed Orally 3 x a day , Taking Pepcid Complete 10-800-165 MG Tablet Chewable 1 tablet as needed Orally 4x a day , Taking Aleve 220 MG Tablet 1 tablet with food or milk as needed Orally every 12 hrs * Allergies: C edar Elm. Objective: * Vitals: * Examination: G eneral Examination: GENERAL APPEARANCE: a lert , pleasant, in no acute distress. HEART: R egular rate and rhythm. LUNGS: c lear to auscultation bilaterally. ABDOMEN: b owel sounds present, soft, nontender, nondistended. Assessment: * Assessment: 1. C hronic diarrhea of unknown origin - K52.9 (Primary) 2 . G astroesophageal reflux disease, unspecified whether esophagitis present - K21.9 3 . N ausea and vomiting, unspecified vomiting type - R11.2 4 . U nintended weight loss - R63.4 5 . D ysphagia, unspecified type - R13.10 Plan: * Treatment: 2. G astroesophageal reflux disease, unspecified whether esophagitis present Start Pantoprazole Sodium Tablet Delayed Release, 40 MG, 1 tablet, Orally, Once a day, 90 days, 90 Tablet, Refills 3. Notes: Diagnostic EGD today. 3. N ausea and vomiting, unspecified vomiting type Notes: Diagnostic EGD today. 4. U nintended weight loss Notes: Diagnostic EGD today. 5. D ysphagia, unspecified type Notes: Diagnostic EGD today. * Billing Information: * Visit Code: * Procedure Codes: * Electronic signature of Erick Martínez MD on 11/28/2024 at 06:43 PM CDT Sign off status: Pending * Provider: Emma Martínez Date: 0 02/03/2024 Generated for Dulce draper/Clara/Jose Miguel on: 0 11/28/2024 06:43 PM CDT History and Physical Notes * HPI (History of Present Illness) Category Sub-Category Detail Notes Category Not es Provider Note Mr Portia nicole is a 38-year-old male patient of Rufina Hooks APRN here for Diagnostic EGD and colonoscopy. Complains of some breakthrough reflux despite Pepcid, epigastric pain and burning, intermittent nausea and chronic diarrhea. Reports some recent unintentional weight loss. Prior diagnostics include laboratory investigation, ultrasound of the abdomen, and CT of the abdomen. Ultrasound noted complex mass in the left lobe of the liver. Follow-up CT scan reports stable hemangioma. Fecal calprotectin and stool studies were negative. No prior EGD or colonoscopy. Family history unknown. Examination Category Sub-Category Detail Notes Category Not es General Examination GENERAL APPEARANCE: alert , pleasant, in no acute distress HEART: Regular rate and rhy thm LUNGS: clear to auscultatio n bilaterally ABDOMEN: bowel sounds present , soft, nontender, nondistended
--- OUTSIDE RECORDS SUMMARY | 2024-02-27 04:30 | XMS_ITS ---
Author Organization [facility] Address [address] [address] Care Team Providers Care Corn Detasseler Name Role Phone [facility], Rima Primary Care Provid er Unavailable AcEmi barragan Unavailable [phone] [place], [place] Unavailable Unavailable Garima Betts Unavailable [phone] REASON FOR VISIT 8wk F/U-Chronic Diarrhea, Started Pantoprazole Encounters Encounter Location Date Provider Diagnosis [facility] [address] [place] [address] 02/27/2024 Garima Betts Plan Of Treatment No Information Progress Notes * Jake OLMOS MDOB:0 1985 (38 yo M)Acc No.[id number]:02/27/2024 Progress Notes Patient: S Jake SANTA Provider: Ambrose Betts APRN :1985 A ge:38 Y S ex:Male Date:02/27/2024 Address:[address] [id number] Pcp:Rima ColeCT, [facility] Subjective: * Chief Complaints: * 1 . 8wk F/U-Chronic Diarrhea, Started Pantoprazole. * Medical History: Objective: * Vitals: Assessment: Plan: * Treatment: * Billing Information: * Visit Code: * Procedure Codes: * Electronic signature of Garima Betts APRN on 11/28/2024 at 06:45 PM CDT Sign off status: Pending * Provider: Ambrose Betts APRN Date: 1 Generated for Dulce draper/Clara/Jose Miguel on: 0 11/28/2024 06:45 PM CDT
--- OUTSIDE RECORDS SUMMARY | 2024-03-23 04:30 | XMS_ITS | Encounter Summary ---
Author Name [facility] Organization [facility] Address [address] [place] [address] Care Team Providers Care Lock Tender Name Role Phone JUAN JOSÉ PINO Primary Care Provider RHONDA Teresa Primary Care Provider Unavail able Selected Encounter This section includes the information on record at [place] for the Encounter. Date/Time Encounter Type Encounter Description Reason Provider Source Mar 23, 2024 09:30 AM Outpatient Encounter PRIMARY CARE/MEDICINE ICD-10-CM Z00.00 Encntr for general adult medical exam w/o abnormal findings SARI RÍOS R IHE Encounter Template Text not used by [place] Assessments - Encounter Diagnoses This section includes the primary and secondary diagnoses documented for the Encounter. 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 This section includes future appointments and future orders which are active, pending or scheduled. Future Appointments This section includes appointments that were scheduled to occur 6 months from the date of the Encounter, up to a maximum of 20 appointments. The data comes from all [place] treatment facilities. Appointment Date/Time Appointment Type Appointme nt Facility Name May 07, 2024 09:00 AM AMBULATORY - MEDICINE [facility] May 07, 2024 09:[address] [facility] MEDICINE [facility] May 15, 2024 08:30 AM [facility] Jun 04, 2024 10:[address] [facility] MEDICINE [facility] Jun 23, 2024 09:30 AM [facility] Lab Results: +/- 30 days of the encounter This section includes the Chemistry and Hematology Lab Results on record with [place] for the patient. Radiology Reports and Pathology Reports are provided separately, in subsequent sections. Lab Results This section contains the Chemistry/Hematology Results that were resulted 30 days before or 30 daysafter the date of the Encounter. Date/Time Source Result Type Result - Unit Interpretation Reference Range Specimen Type Comment Apr 07, 2024 10:01 AM [facility] URINALYSIS (STL-PB) URINE Specimen Type: URINE No comment entered. Ordering Provider: SHANT RÍOS Report Released Date/Time: Mar 23, 2024 11:54 AM Reporting Lab: [facility] [address] [address] Performing Lab: [facility] [address] [facility] [address] URINE COLOR Light Yellow Yellow U.BILIRUBIN NEGATIVE mg/dL Negative U.PH 6.5 5.0-8.0 APPEARANCE CLEAR Clear U.NITRITE NEGATIVE mg/dL Negative URN.GLUCOSE NORMAL mg/dL Negative URN.PROTEIN NEGATIVE mg/dL URN.UROBILINOGEN NORMAL mg/dL Normal URN.BLOOD NEGATIVE mg/dL Negative-Trace URN.KETONES NEGATIVE mg/dL Negative-Trac e URN.LEUK.EST. NEGATIVE Negative-Trace URN.SPECIFIC GRAVITY 1.012 1.005-1.029 Apr 07, 2024 10:00 AM [facility] W-0-cbzkecqot,tot (PB) SERUM Specimen Type: S TARI Comment: Test Performed by [employer] [place], [employer] [place], [address] [place] [address] Liu Cortes M.D., Ph.D., Director of Laboratories , CLIA [id number] Ordering Provider: RHONDA RÍOS Report Released Date/Time: Mar 30, 2024 04:40 PM Reporting Lab: [place] [facility] [address] [place] [address] Performing Lab: [place] [address] D-2-dznwceoem,tot (PB) 6.2 ug/dL 5.9-10. 3 Apr 07, 2024 10:00 AM [facility] TOTAL T3 (PB-SO) SERUM Specimen Type: SERUM Comment: [facility], [employer] [place], [address] [place] [address] Liu Cortes M.D., Ph.D., Director of Laboratories , CLIA [id number] Ordering Provider: RHONDA RÍOS Report Released Date/Time: Mar 30, 2024 04:40 PM Reporting Lab: [place] [facility] [address] [facility] [place] [address] Performing Lab: [place] [address] TOTAL T3 (PB-SO) 109.2 ng/dL 76-181 Apr 07, 2024 10:00 AM [facility] T3 UPTAKE (MA-PB) SERUM Specimen Type: SERUM Comment: Test Performed by [facility], [employer] [place], [address] [place] [address] Liu Cortes M.D., Ph.D., Director of Laboratories , CLIA [id number] Ordering Provider: RHONDA RÍOS Report Released Date/Time: Mar 30, 2024 04:43 PM Reporting Lab: [place] [facility] [address] [place] [address] Performing Lab: [place] [facility] [address] [facility] [address] T3 UPTAKE (MA-PB) 32 22-35 Mar 23, 2024 09:32 AM [facility] TSH (MA-PB) SERUM Specimen Typ e: SERUM No comment entered. Ordering Provider: RHONDA RÍOS Report Released Date/Time: Mar 11, 2024 09:39 AM Reporting Lab: [place] [facility] [address] [place] [address] Performing Lab: [place] [facility] [address] [place] [address] TSH 0.436 u[IU]/mL L 0.47-5 Mar 23, 2024 09:32 AM [facility] VITAMIN D, 25-HYDROXY SERUM Specimen Type: SE RUM No comment entered. Ordering Provider: RHONDA RÍOS Report Released Date/Time: Mar 11, 2024 09:39 AM Reporting Lab: [place] [facility] [address] [place] [address] Performing Lab: [place] [facility] [address] [place] [address] VITAMIN D, 25-HYDROXY 33.4 ng/mL 30-96 Mar 23, 2024 09:32 AM [facility] HGA1C BLOOD Specimen Type: BLOOD No comment entered. Ordering Provider: RHONDA RÍOS Report Released Date/Time: Mar 11, 2024 09:39 AM Reporting Lab: [place] [facility] [address] [place] [address] Performing Lab: [place] [facility] [address] [place] [address] HGA1C 4.8 4.0-6.0 Mar 23, 2024 09:32 AM [facility] CHOLESTEROL PANEL (PB) PLASMA Specimen Type: P LASMA No comment entered. Ordering Provider: RHONDA RÍOS Report Released Date/Time: Mar 11, 2024 09:39 AM Reporting Lab: [place] [facility] [address] [place] [address] Performing Lab: [place] [facility] [address] [place] [address] CHOLESTEROL 123 mg/dL 0-200 TRIGLYCERIDE 61 mg/dL 0-150 CALCULATED LDL 74.8 mg/dL HDL(New) 36.0 mg/dL L >40 HDL % OF TOTAL CHOLESTEROL (PB) 29.3 >25 Mar 23, 2024 09:32 AM [facility] COMPREHENSIVE METABOLIC PANEL PLASMA Specimen Type: PLASMA No comment entered. Ordering Provider: RHONDA RÍOS Report Released Date/Time: Mar 11, 2024 09:39 AM Reporting Lab: [place] [facility] [address] [place] [address] Performing Lab: [place] [facility] [address] [place] [facility] CREATININE 0.91 mg/dL 0.7-1.3 UREA NITROGEN 11 mg/dL 9-25 GLUCOSE 92 mg/dL 72-99 SODIUM 140 meq/L 136-145 POTASSIUM 4.0 meq/L 3.5-5 CHLORIDE 106 meq/L 98-107 CARBON DIOXIDE 25 meq/L 22-31 CALCIUM 9.7 mg/dL 8.4-10.4 PROTEIN 7.5 g/dL 6-8.6 ALBUMIN 4.9 g/dL 3.4-5 TOTAL BILIRUBIN 0.7 mg/dL 0.2-1.2 ALKALINE PHOSPHATASE 81 U/L 40-150 AST/SGOT 23 U/L 5-34 ALT/SGPT 22 U/L 8-40 EGFR (CKD-EPI 2020) 111 Mar 23, 2024 09:32 AM [facility] CBC BLOOD Specimen Type: BLOOD No comment entered. Ordering Provider: RHONDA RÍOS Report Released Date/Time: Mar 11, 2024 09:39 AM Reporting Lab: [place] [facility] [address] [place] [address] Performing Lab: [place] [facility] [address] [place] [facility] WBC 6.8 10*3/uL 3.6-11.2 RBC 5.17 10*6/uL 4.10-5.70 HGB 15.8 g/dL 13.1-16.8 HCT 44.5 38.2-48.4 MCV 86.1 fL 80.0-100.0 MCH 30.6 pg 27.0-34.0 MCHC 35.5 g/dL 33.0-36.0 PLT 270 10*3/uL 150-400 MPV 10.7 fL 7.5-11.2 RDW 11.9 11.8-15.1 LYMPHOCYTES, AUTO % 21.5 MONOCYTES, AUTO % 7.0 NEUTROPHILS, AUTO % 69.2 EOSINOPHILS, AUTO % 0.9 BASOPHILS, AUTO % 1.0 LYMPHOCYTES, ABSOLUTE 1.47 10*3/uL 0.77- 4.50 MONOCYTES, ABSOLUTE 0.48 10*3/uL 0.19-0. 8 NEUTROPHILS, ABSOLUTE 4.72 10*3/uL 2.10- 8.00 EOSINOPHILS, ABSOLUTE 0.06 10*3/uL 0.00- 0.60 BASOPHILS, ABSOLUTE 0.07 10*3/uL 0.00-0. 20 IMMATURE GRANS, AUTO % 0.4 IMMATURE GRANS, AUTO ABS 0.03 10*3/uL 0. 00-0.05 Vital Signs: All taken on the encounter date This section contains inpatient and outpatient Vital Signs collected on the date of the Encounter. Date/Time Temperature Pulse Blood Pressure Respiratory Rate SP02 Pain Height Weight Body Mass Index Source Mar 23, 2024 09:49 AM 17 [facility] Mar 23, 2024 09:49 AM 212 28 [facility] Mar 23, 2024 09:42 AM 98.0 62 124/77 99 [facility] Social History: Smoking Status (Most current) and Tobacco Use (All prior to encounter date) This section includes the most current, and the historical, smoking and tobacco- related health factors from the [place] facility where the Encounter took place. Current Smoking Status This section includes the most current smoking, or tobacco-related health factor, from the [place] facility where the Encounter took place. Date/Time Current Smoking Status Comment Facil ity May 13, 2023 08:30 AM VA-TOBACCO FORMER USER [facility] Tobacco Use History This section includes a history of the smoking, or tobacco-related health factors, that were collected on or before the date of the Encounter. The data comes from the [place] facility where the Encounter took place. Date/Time Smoking Status/Tobacco Use Comment F acility May 13, 2023 08:30 AM VA-TOBACCO QUIT 5 TO < 15 YRS [facility] May 11, 2022 10:30 AM VA-TOBACCO FORMER USER [facility] May 11, 2022 10:30 AM VA-TOBACCO QUIT 1 TO < 5 YRS [facility] Feb 05, 2018 02:33 PM QUIT TOBACCO >12 MO & <7 YRS AGO [facility] Aug 21, 2017 10:24 AM QUIT TOBACCO >12 [place] & <7 YRS AGO [facility] Mar 12, 2016 06:56 AM QUIT TOBACCO >12 MO & <7 YRS AGO [facility] Advance Directives: All historical and current Section Date Range: From patient's date of to the date document was created. This section includes ALL of a patient's completed or amended [place] Advance and Rescinded Directives. The entries below indicate that a directive exists for the patient, but an actual copy is not included with this document. The data comes from all [place] facilities. Date Advance Directives Provider Source Sep 10, 2018 ADVANCE DIRECTIVE KISHA AGEE AR VANPH May 05, 2018 ADVANCE DIRECTIVE KITTY VALDERRAMA RICKI FF [facility] October 16, 2010 ADVANCE DIRECTIVE DISCUSSION SIRENA FORREST [facility] Encounter Notes: All associated encounter notes This section contains the clinical notes associated to the Encounter. Date/Time Encounter Note(s) Provider Source Mar 30, 2024 04:43 PM NURSING PROGRESS N OTE: LOCAL TITLE: NURSING NOTE PB STANDARD TITLE: NURSING PROGRESS NOTE DATE OF NOTE: MAR 30, 2024@16:43 ENTRY DATE: MAR 30, 2024@16:43:43 AUTHOR: MODESTO LOERA EXP COSIGNER: URGENCY: STATUS: COMPLETED Called to review test result letter. Vetera voiced understanding and states he will be in to have the thyroid levels tested. Orders are placed. /raiza/ MODESTO LOERA LPN Signed: 03/30/2024 16:44 MODESTO LOERA [facility] Mar 23, 2024 09:50 AM PRIMARY CARE PROGR ESS NOTE: LOCAL TITLE: PRIMARY CARE CLINIC PROGRESS NOTE PB STANDARD TITLE: PRIMARY CARE PROGRESS NOTE DATE OF NOTE: MAR 23, 2024@09:50 ENTRY DATE: MAR 23, 2024@09:50:50 AUTHOR: RHONDA RÍOS COSIGNER: URGENCY: STATUS: COMPLETED PROVIDER ASSESSMENT DATE & TIME:Feb@09:50 CHIEF COMPLAINT: Annual physical and labs. HISTORY OF PRESENT ILLNESS: Sterling is being seen for his annual physical and labs. Sterling reports compliance with medications. He denies any home needs. He is interested in acupuncture for alpha gal. He will have labs drawn today. He follows with dental. He states he is following his alpha gal diet and has not had further episodes of the chest pain and tightening since eliminating those triggers from his diet. 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: 1) Acute posttraumatic stress disorder following combat (SNOMED CT 063960190) 2) Depression (SNOMED CT 24387903) 3) Anxiety (SNOMED CT 34983839) 4) Obstructive sleep apnea syndrome 5) Obstructive sleep apnea (SNOMED CT 82092552) 6) Gastroesophageal Reflux Disease 7) Seasonal allergic rhinitis 8) Ankle pain 9) Alcohol dependence 10) Exposure to potentially hazardous chemical 11) Pain in left leg 12) Chronic sinusitis 13) Tinnitus 14) Exposure to Potentially Hazardous Substance ([facility] [id number]) 15) Alpha-gal syndrome Active Outpatient Medications (including Supplies): Active Outpatient Medications Status 1) ARIPIPRAZOLE 20MG TAB TAKE ONE-HALF TABLET BY MOUTH ACTIVE AT BEDTIME FOR MOOD STABILIZATION 2) EPI(EQV-ADRENACLICK)0.3MG/0. 3ML INJCTR INJECT 1 PEN ACTIVE (0.3MG/0.3ML) INTRAMUSCULARLY ONE-TIME FOR ALLERGIC REACTION 3) FAMOTIDINE 40MG TAB TAKE ONE TABLET BY MOUTH TWICE A ACTIVE DAY FOR GASTROESOPHAGEAL REFLUX DISEASE 4) GABAPENTIN 100MG CAP TAKE ONE CAPSULE BY MOUTH THREE ACTIVE TIMES A DAY NEEDED FOR NERVE PAIN 5) HYDROXYZINE HCL 25MG TAB TAKE ONE TABLET BY MOUTH ACTIVE THREE TIMES A DAY NEEDED FOR ANXIETY *MAY CAUSE DROWSINESS* 6) PANTOPRAZOLE NA 40MG EC TAB TAKE ONE TABLET BY MOUTH ACTIVE EVERY MORNING BEFORE A MEAL FOR GASTROESOPHAGEAL REFLUX DISEASE TAKE 30 MINUTES BEFORE MEAL(S) 7) PRAZOSIN HCL 2MG CAP TAKE ONE CAPSULE BY MOUTH AT ACTIVE BEDTIME FOR PTSD MAY CAUSE DIZZINESS OR DROWSINESS. Pending Outpatient Medications Status 1) HYDROXYZINE HCL 25MG TAB TAKE ONE TABLET BY MOUTH PENDING THREE TIMES A DAY NEEDED *MAY CAUSE DROWSINESS* Active Non-VA Medications Status 1) Non-VA ACETAMINOPHEN 325/[id number]/CAFN 40MG TAB 1 TO ACTIVE 2 TABLETS BY MOUTH FOUR TIMES A DAY NEEDED 2) Non-VA CHOLECALCIF 50MCG (D3-2,000UNIT) TAB 50MCG BY ACTIVE MOUTH ONCE A DAY 3) Non-VA FLUTICASONE PROP 50MCG 120D NASAL INHL 2 ACTIVE SPRAYS NOSTRIL(S) ONCE A DAY NEEDED 4) Non-VA THIAMINE 100MG TAB 100MG BY MOUTH ONCE A DAY ACTIVE 12 Total Medications REVIEW OF SYSTEMS: HEENT: No Headache. No blurry vision, vision loss, eye pain, red eyes, or foreign body. No runnynose, congestion, or nose bleed. No hearing loss, ringing in the ears, or vertigo. No sore throat or dental pain. RESPIRATORY: No cough, SOA, wheezing, or sputum production. CARDIOVASCULAR: No chest pain, palpitations, tachycardia, PND, or orthopnea. GI: No abdominal pain, nausea, vomiting, diarrhea, constipation, melena, or hematochezia. : No dysuria, hematuria, urinary frequency, weak stream, or post-void dribbling. MUSCULOSKELETAL: chronic low back pain. SKIN: No rash, lesions, or infection PSYCH: No Depression or Anxiety. Not suicidal. PHYSICAL ASSESSMENT: VITAL SIGNS Pulse: 62 (03/23/2024 09:42) Blood Pressure: 124/77 (03/23/2024 09:42) Respiratory Rate: 17 (03/23/2024 09:49) Temperature: 98.0 F [36.7 C] (03/23/2024 09:42) Weight: 212 lb [96.16 kg] (03/23/2024 09:49) Height: 73.0 in [185.4 cm] (11/19/2023 14:11) Pain: 7 (10/22/2023 11:07) HEENT:PERRL, EOMI, Fundi benign, TM's clear, Pharynx not red and without exudate, tonsils normal size. NECK: Supple, no lymhadenopathy, thyroid normal. CARDIAC: Regular rate and rhythm without murmur. No edema. RESPIRATORY: CTA, BEBS GI: Abdomen soft,with ABS, no HSM, no guarding or rebound. MUSCULOSKELETAL:No muscle or joint tenderness. FROM. SKIN: [place] without rash or lesions. NEUROLOGICAL: The Sterling is alert and oriented without distress. Affect appropriate. IMPRESSION: Encounter for General Adult Medical Exam Alpha Gal-current Depression-stable Anxiety-stable Allergic Rhinitis-chronic PLAN: Will refer for acupuncture. Increase water intake. Continue current medications. Labs today. RTC in one year or sooner if needed. Patient is advised this primary care clinic has open access and he can make a same day appointment anytime a problem/concern arises. Patient further advised he can be seen on a walk-in basis as needed. Patient is provided clinic contact information. Medications reviewed and reconciled. Discussed diet and exercise as relevant to patient conditions. Treatment plan as noted above and the After Visit Summary was reviewed with Sterling; opportunity provided to report concerns and ask question regarding aspects of care or treatment or services; concurrence reached and verbalized understanding. Please refer to addendum or follow up lab letter for plan of care/changes related to lab/test results not available at conclusion of appointment, if any. Discussed with patient that in the event of community imaging / testing being ordered in the future, once the imaging / testing has been completed, please notify PACT of within 1 week by a [facility] PACT member; this is due to intermittent lapses in notification of imaging completion within CPR[facility]. All questions answered; agrees to plan of care. Follow up as listed above, annually, and as needed. Keep all completion at outside facility if not called with results appointments. Medications Reconciled. Time spent 30 minutes. /raiza/ MARK [place] PlainMARS goldstein Signed: 03/29/2024 18:24 [facility] [place] [facility] Mar 23, 2024 09:44 AM PRIMARY CARE NURSI NG NOTE: LOCAL TITLE: PRIMARY CARE NURSING PROGRESS NOTE (TEXT) NURSING P STANDARD TITLE: PRIMARY CARE NURSING NOTE DATE OF NOTE: MAR 23, 2024@09:44 ENTRY DATE: MAR 23, 2024@09:44:07 AUTHOR: SINDY WYATT EXP COSIGNER: URGENCY: STATUS: COMPLETED PRIMARY CARE NURSING PROGRESS NOTE (TEXT) NURSING PB Has ADDENDA Established Patient NAGA OLMOS IS A 38 YEAR OLD MALE BEING SEEN IN CLINIC MAR 23, 2024. = = REASON FOR VISIT: Annualappt Are you receiving care any where other than the [facility]? No HEALTH AND SURGICAL HISTORY: Does patient report using home oxygen? No CURRENT ACTIVE MEDICATIONS FOR REVIEW: Allergies/ADRs (Tool #5) FACILITY ALLERGY/ADR -------- [facility] Med. Reconciliation (Tool #1) INCLUDED IN THIS LIST: Alphabetical list of active outpatient prescriptions dispensed from this [facility] (local) and dispensed from another [facility] or [facility] facility (remote) as well as inpatient orders (local pending and active), local clinic medications, locally documented non-VA medications, and local prescriptions that have or been discontinued in the past 90 days. Non-VA Meds Last Documented On: Jan 09, 2023 NOTE The display of VA prescriptions dispensed from another UT or [facility] facility (remote) is limited to active outpatient prescription entries matched to National Drug File at the originating site and may not include some items such as investigational drugs, compounds, etc. NOT INCLUDED IN THIS LIST: Medications self-entered by the patient into personal health records (i.e. [employer]) are NOT included in this list. Non-VA medications documented outside this [facility], remote inpatient orders (regardless of status) and remote clinic medications are NOT included in this list. The patient and provider must always discuss medications the patient is taking, regardless of where the medication was dispensed or obtained. Non-VA ACETAMINOPHEN 325/ZZAWEO06/CAFN 40MG TAB TAKE 1 TO 2 TABLETS BY MOUTH FOUR TIMES A DAY NEEDED Patient wants to buy from Non-VA pharmacy. OUTPT ARIPIPRAZOLE 20MG TAB (Status = Discontinued) TAKE ONE-HALF TABLET BY MOUTH AT BEDTIME FOR MOOD STABILIZATION Rx# [id number] Last Released: 09/18/23 Qty/Days Supply: Rx Expiration Date: 07/22/24 Refills Remainin Indication: FOR MOOD STABILIZATION OUTPT ARIPIPRAZOLE 20MG TAB (Status = Active) TAKE ONE-HALF TABLET BY MOUTH AT BEDTIME FOR MOOD STABILIZATION Rx# [id number] Last Released: 03/20/24 Qty/Days Supply: Rx Expiration Date: 01/06/25 Refills Remainin Indication: FOR MOOD STABILIZATION Non-VA CHOLECALCIF 50MCG (D3-2,000UNIT) TAB TAKE ONE TABLET BY MOUTH ONCE A DAY OUTPT EPI(EQV-ADRENACLICK)0.3MG/0. 3ML INJCTR (Status = Active) INJECT 1 PEN (0.3MG/0.3ML) INTRAMUSCULARLY ONE-TIME FOR ALLERGIC REACTION Rx# [id number] Last Released: 11/21/23 Qty/Days Supply: Rx Expiration Date: 11/19/24 Refills Remainin Indication: FOR ALLERGIC REACTION OUTPT FAMOTIDINE 40MG TAB (Status = Active) TAKE ONE TABLET BY MOUTH TWICE A DAY FOR GASTROESOPHAGEAL REFLUX DISEASE Rx# [id number] Last Released: 03/20/24 Qty/Days Supply: Rx Expiration Date: 10/30/24 Refills Remainin Indication: FOR GASTROESOPHAGEAL REFLUX DISEASE Non-VA FLUTICASONE PROP 50MCG 120D NASAL INHL INSTILL 2 SPRAYS IN NOSTRIL(S) ONCE A DAY NEEDED Patient wants to buy from Non-VA pharmacy OUTPT GABAPENTIN 100MG CAP (Status = Active) TAKE ONE CAPSULE BY MOUTH THREE TIMES A DAY NEEDED FOR NERVE PAIN Rx# [id number] Last Released: 03/20/24 Qty/Days Supply: 270 Rx Expiration Date: 10/30/24 Refills Remainin Indication: FOR NERVE PAIN OUTPT HYDROXYZINE HCL 25MG TAB (Status = Discontinued) TAKE ONE TABLET BY MOUTH THREE TIMES A DAY NEEDED FOR ANXIETY *MAY CAUSE DROWSINESS* Rx# [id number] Last Released: 10/24/23 Qty/Days Supply: 270 Rx Expiration Date: 10/22/24 Refills Remainin Indication: FOR ANXIETY OUTPT HYDROXYZINE HCL 25MG TAB (Status = Active) TAKE ONE TABLET BY MOUTH THREE TIMES A DAY NEEDED FOR ANXIETY *MAY CAUSE DROWSINESS* Rx# [id number] Last Released: 03/20/24 Qty/Days Supply: 270 Rx Expiration Date: 01/06/25 Refills Remainin Indication: FOR ANXIETY OUTPT MUPIROCIN 2% OINT (Status = ) APPLY SPARINGLY TO AFFECTED AREA(S) TWICE A DAY FOR BACTERIAL INFECTION EXTERNAL USE ONLY. Rx# [id number] Last Released: 11/22/23 Qty/Days Supply: Rx Expiration Date: 02/17/24 Refills Remainin Indication: FOR BACTERIAL INFECTION OUTPT PANTOPRAZOLE NA 40MG EC TAB (Status = Active) TAKE ONE TABLET BY MOUTH EVERY MORNING BEFORE A MEAL FOR GASTROESOPHAGEAL REFLUX DISEASE TAKE 30 MINUTES BEFORE MEAL(S) Rx# [id number] Last Released: 03/20/24 Qty/Days Supply: Rx Expiration Date: 10/30/24 Refills Remainin Indication: FOR GASTROESOPHAGEAL REFLUX DISEASE OUTPT PRAZOSIN HCL 2MG CAP (Status = Discontinued) TAKE ONE CAPSULE BY MOUTH AT BEDTIME FOR PTSD MAY CAUSE DIZZINESS OR DROWSINESS. Rx# [id number] Last Released: 08/06/23 Qty/Days Supply: Rx Expiration Date: 07/22/24 Refills Remainin Indication: FOR PTSD OUTPT PRAZOSIN HCL 2MG CAP (Status = Active) TAKE ONE CAPSULE BY MOUTH AT BEDTIME FOR PTSD MAY CAUSE DIZZINESS OR DROWSINESS. Rx# [id number] Last Released: 01/09/24 Qty/Days Supply: Rx Expiration Date: 01/06/25 Refills Remainin Indication: FOR PTSD Non-VA THIAMINE 100MG TAB TAKE ONE TABLET BY MOUTH ONCE A DAY Medication prescribed by Non-VA provider SUPPLIES PHARMACY TERMS AND POSSIBLE PATIENT ACTIONS INPT = UT inpatient order IV = UT intravenous medication OUTPT = UT outpatient prescription PHARMACY POSSIBLE PATIENT TERMS EXPLANATION ACTIONS -------- ---- ACTIVE A prescription that can be If you have refills, filled at the local [facility] pharmacy. you may request a refill of this prescription from your [facility] pharmacy. CLINIC A medication you received during If you have questions a visit to a [facility] clinic or about this medication emergency department. contact your [facility] healthcare team. DISCONTINUED A prescription your provider has Contact your [facility] stopped. It is no longer healthcare team if you available to be sent to you or need more of this picked up at the [place] pharmacy medication. window. A prescription which is too old Contact your [facility] to fill. This does not refer to healthcare team if you the expiration date of the need more of this medication in the container. medication. NON-VA A medication that came from If this medication someplace other than a [facility] information is pharmacy. This may be a incorrect or out of prescription from either the [facility] date, please tell your or non VA providers that was VA healthcare team. filled outside the [facility]. Or, it may be an [id number] (OTC), herbal, dietary supplements or sample medication. ON HOLD An active prescription that will Contact your [facility] not be filled until pharmacy pharmacy when you need resolves the issue. more of this medication. PARKED An active prescription that will Contact your [facility] not be filled until the patient pharmacy when you need requests it. this medication. PENDING This prescription order has been If you have been sent to the pharmacy for review instructed to start and is not ready yet. this medication now, contact your [facility] pharmacy. SUSPENDED An active prescription that is Contact your [place] not scheduled to be filled yet. pharmacy if you need You should receive it before this medication now. you run out. Patient reports taking medications as ordered. IS PATIENT TAKING ANY OVER THE COUNTER MEDICATIONS, SUCH VITAMINS OR HERBAL SUPPLEMENTS, INCLUDING ANY MEDICATIONS PRESCRIBED BY ANOTHER PHYSICIAN? No ALLERGIES/ADVERSE REACTIONS: EGGS Does patient have any new allergies to report since last visit? NO VITALS: TEMPERATURE: 98.0 F [36.7 C] (03/23/2024 09:42) BP: 124/77 (03/23/2024 09:42) RESP: 16 (11/19/2023 14:11) PULSE: 62 (03/23/2024 09:42) HT: 73.0 in [185.4 cm] (11/19/2023 14:11) WT: 210.6 lb [95.53 kg] (11/19/2023 14:11) BMI: 27.8 PAIN ASSESSMENT: (Most Recent Pain Score in Vitals Package: 7 (10/22/2023 11:07) ) The patient indicated that they and their close contacts have not traveled outside of the [place] in the past 21 days. The patient reports the following symptoms: No symptoms present The patient is not immunocompromised. The patient does not report having a history of Multi Drug Resistant Organism (MDRO) within the last five years. The patient does not report having been exposed to measles, chickenpox, or zoster in last 30 days. Patient reports no pain at this visit. Pain Score = 0. STRESS: Thank you for your service. Now let us serve you. At the [facility], we strive to provide you with exceptional health care that improves your health and well-being. Are you feeling sad, empty, or depressed? No Do you need to talk about things in your life that worry you or cause you stress? No Do you need to talk about personal problems, family problems, alcohol use, drug use, or mental or emotional illness? No SUICIDE SCREENING: The patient was asked, Over the past two weeks, how often have you been bothered by thoughts that you would be better off or of hurting yourself in some way? Not At All SPIRITUAL ASSESSMENT: Are there christian practices or spiritual concerns you want the wood bucker, your physician, and other health care team members to immediately know about? No Patient advised to call the clinic for any concerns, questions, or symptoms. Patient and/or caregiver verbalized understanding of plan of care. Suicide Screen - V: C-SSRS Screening Mcdonald-Suicide Severity Rating Scale (C-SSRS Screener) 1. Over the past month, have you wished you were or wished you could go to sleep and not wake up? No 2. Over the past month, have you had any actual thoughts of killing yourself? No 3. Over the past month, have you been thinking about how you might do this? Response not required due to responses to other questions. 4. Over the past month, have you had these thoughts and had some intention of acting on them? Response not required due to responses to other questions. 5. Over the past month, have you started to work out or worked out the details of how to kill yourself? Response not required due to responses to other questions. 6. If yes, at any time in the past month did you intend to carry out this plan? Response not required due to responses to other questions. 7. In your lifetime, have you ever done anything, started to do anything, or prepared to do anything to end your life (for example, collected pills, obtained a gun, gave away valuables, went to the roof but didn't jump)? No 8. If YES, was this within the past 3 months? Response not required due to responses to other questions. MOVE Weight Management: Most recent BMI: 27.8. educated on health risk of obesity and treatment is offered. Participation in a weight management program was considered/offered for this patient based on the current BMI score. Patient declines participation in a weight management program. Depression Screening - V: Perform PHQ-2 A PHQ-2 screen was performed. The score was 0 which is a negative screen for depression. Over the past two weeks, how often have you been bothered by the following problems? 1. Little interest or pleasure in doing things Not at all 2. Feeling down, depressed, or hopeless Not at all Influenza Immunization - L,N,P,PH,U: Deferral / Refusal Weight Control/Nutrition Counseling: * The patient received the following counseling at this encounter: Patient was encouraged to restrict fat, especially saturated fats, in a normal diet. Benefit of a diet high in fiber was discussed. Patient was advised to include 5 or more servings of fruit and vegetables and six or more servings of grains as a well balanced diet. Advanced Directive Screen/Leather Stretcher: ADVANCE DIRECTIVE SCREENING: I asked if the patient has an advance directive, and determined that: Patient does not have an Advance Directive. Patient was given form to update and return when completed. ADVANCE DIRECTIVE NOTIFICATION I provided the patient with written notification about advance directives. Level of understanding: Pneumococcal Conjugate Vaccine (PCV15/PCV20) - L,N,P,PH,U: Refuses PCV vaccine Immunization: PNEUMOCOCCAL CONJUGATE, UNSPECIFIED FORMULATION Refusal Reason: PATIENT DECISION Patient refuses all immunization(s) in the PneumoPCV group Date Documented: 03/23/24 09:47 Pain Assessment: - PAIN ASSESSMENT: .. Patient's self identified pain goal: 0 /es/ Sindy Wyatt RN [facility], [facility] Signed: 03/23/2024 09:47 03/23/2024 ADDENDUM STATUS: COMPLETED COVID-19 Immunization - L,N,P,PH,U: Refused Moderna Monovalent COVID-19 vaccine Immunization: COVID-19 (MODERNA), MRNA, LNP-S, PF, 50 MCG/0.5 ML (AGES 12+ YEARS) Refusal Reason: PATIENT DECISION Patient refuses all immunization(s) in the COVID-19 group Date Documented: 03/23/24 09:48 /raiza/ Sindy Wyatt RN [facility], [facility] Signed: 03/23/2024 09:48 SINDY WYATT [facility]
--- OUTSIDE RECORDS SUMMARY | 2024-04-20 11:00 | XMS_ITS ---
Author Organization [facility] Address [address] [place] [address] Care Team Providers Care [employer] Facer Name Role Phone [facility], Rima Primary Care Provid er Unavailable AcEmi barragan Unavailable [phone] [place], [place] Unavailable Unavailable Garima Betts Unavailable [phone] REASON FOR VISIT 8wk F/U-Chronic Diarrhea, Started Pantoprazole Encounters Encounter Location Date Provider Diagnosis [facility] [address] [place] [address] 04/20/2024 Garima Betts Plan Of Treatment No Information Progress Notes * Jake OLMOS MDOB:0 1985 (38 yo M)Acc No.[id number]:04/20/2024 Progress Notes Patient: S Jake SANTA Provider: Ambrose Betts APRN :1985 A ge:38 Y S ex:Male Date:04/20/2024 [id number] Pcp:Rima Cole[place], [facility] Subjective: * Chief Complaints: * 1 . 8wk F/U-Chronic Diarrhea, Started Pantoprazole. * Medical History: Objective: * Vitals: Assessment: Plan: * Treatment: * Billing Information: * Visit Code: * Procedure Codes: * Electronic signature of Garima Betts APRN on 11/28/2024 at 06:44 PM CDT Sign off status: Pending * Provider: Ambrose Betts APRN Date: 06/20/2023 Generated for Dulce draper/Clara/Jose Miguel on: 11/28/2024 06:44 PM CDT
--- OUTSIDE RECORDS SUMMARY | 2024-05-07 04:00 | XMS_ITS | Encounter Summary ---
Author Name [facility] Organization [facility] [place] Address [address] [place] [address] Care Team Providers Care Physician General Internal Medicine Name Role Phone JUAN JOSÉ PINO Primary Care Provider RHONDA Teresa Primary Care Provider Unavail able Selected Encounter This section includes the information on record at [place] for the Encounter. Date/Time Encounter Type Encounter Description Reason Provider Source May 07, 2024 09:00 AM OFFICE O/P EST MOD 30 MIN [facility] - IND ICD-10-CM F43.12 Post-traumatic stress disorder, chronic SARIAH DENNIS Blanca Encounter Template Text not used by [place] Assessments - Encounter Diagnoses This section includes the primary and secondary diagnoses documented for the Encounter. Date/Time Primary/Secondary Diagnosis Diagnosis Name Provider Source May 07, 2024 10:33 AM PRIMARY Post-traumatic stress disorder, chronic [facility]H DENNIS [facility] [place] [facility] Plan of Treatment: Future Appointments (+ 6 months) and Future Tests (+/- 45 days) The Plan of Treatment section includes future care activities for the patient from all [place] treatmentfacilities. This section includes future appointments and future orders which are active, pending or scheduled. Future Appointments This section includes appointments that were scheduled to occur 6 months from the date of the Encounter, up to a maximum of 20 appointments. The data comes from all [place] treatment facilities. Appointment Date/Time Appointment Type Appointme nt Facility Name May 15, 2024 08:30 AM AMBULATORY - MEDICINE [facility] Jun 04, 2024 10:00 AM AMBULATORY - MEDICINE [facility] Jun 23, 2024 09:30 AM AMBULATORY - MEDICINE [facility] Lab Results: +/- 30 days of the encounter This section includes the Chemistry and Hematology Lab Results on record with [place] for the patient. Radiology Reports and Pathology Reports are provided separately, in subsequent sections. Lab Results This section contains the Chemistry/Hematology Results that were resulted 30 days before or 30 daysafter the date of the Encounter. Date/Time Source Result Type Result - Unit Interpretation Reference Range Specimen Type Comment May 07, 2024 10:40 AM [facility] POC UA (STL-PB-MA) URINE Specimen Type: URINE No comment entered. Ordering Provider: RHONDA RÍOS Report Released Date/Time: May 07, 2024 10:47 AM Reporting Lab: [facility] [address] [facility] [id number] Performing Lab: [facility] [address] [facility] [id number] PROTEIN POC UA Negative mg/dL Negative BLOOD POC UA Negative Negative LEUKOCYTES POC UA Negative Negative COLOR POC UA Yellow YELLOW SPEC GRAV POC UA 1.015 1.005-1.030 UROBILINOGEN POC UA 0.2 {Peter'U}/dL 0 .1-1.0 BILIRUBIN POC UA Negative Negative KETONES POC UA Negative mg/dL Negative GLUCOSE POC UA Negative mg/dL Negative pH POC UA 7.0 5.0-8.0 NITRITE POC UA Negative Negative CLARITY POC UA Clear CLEAR Vital Signs: All taken on the encounter date This section contains inpatient and outpatient Vital Signs collected on the date of the Encounter. Date/Time Temperature Pulse Blood Pressure Respiratory Rate SP02 Pain Height Weight Body Mass Index Source May 07, 2024 10:30 AM 97.9 62 143/99 [facility] May 07, 2024 09:19 AM 97.7 61 128/84 20 99 3 73 205.2 27 [facility] Social History: Smoking Status (Most current) and Tobacco Use (All prior to encounter date) This section includes the most current, and the historical, smoking and tobacco- related health factors from the [place] facility where the Encounter took place. Current Smoking Status This section includes the most current smoking, or tobacco-related health factor, from the [place] facility where the Encounter took place. Date/Time Current Smoking Status Comment Facil ity May 07, 2024 09:00 AM VA-TOBACCO NEVER USED OTHER TYPE [facility] Tobacco Use History This section includes a history of the smoking, or tobacco-related health factors, that were collected on or before the date of the Encounter. The data comes from the [place] facility where the Encounter took place. Date/Time Smoking Status/Tobacco Use Comment F acility May 07, 2024 09:00 AM [facility] May 13, 2023 08:30 AM VA-TOBACCO FORMER USER [facility] May 13, 2023 08:30 AM VA-TOBACCO QUIT 5 TO < 15 YRS [facility] May 11, 2022 10:30 AM VA-TOBACCO FORMER USER [facility] May 11, 2022 10:30 AM VA-TOBACCO QUIT 1 TO < 5 YRS [facility] Feb 05, 2018 02:33 PM QUIT TOBACCO >12 MO & <7 YRS AGO [facility] [place] [facility] Aug 21, 2017 10:24 AM QUIT TOBACCO >12 MO & <7 YRS AGO [facility] [place] [facility] Mar 12, 2016 06:56 AM QUIT TOBACCO >12 MO & <7 YRS AGO [facility] Advance Directives: All historical and current Section Date Range: From patient's date of to the date document was created. This section includes ALL of a patient's completed or amended [place] Advance and Rescinded Directives. The entries below indicate that a directive exists for the patient, but an actual copy is not included with this document. The data comes from all [place] facilities. Date Advance Directives Provider Source Sep 10, 2018 ADVANCE DIRECTIVE KISHA AGEE AR VANPH May 05, 2018 ADVANCE DIRECTIVE KITTY VALDERRAMAU FF [facility] October 16, 2010 ADVANCE DIRECTIVE DISCUSSION SIRENA FORREST [facility] Radiology Reports: +/- 30 days of the encounter Radiology Reports For cases when an order for radiology services may have been completed prior to the date of the Encounter, the report list includes the Radiology Reports that were completed up to 30 days before dateof the Encounter. For cases when an order for radiology services may have been completed after the date of the Encounter, the report list also includes the Radiology Reports that were completed up to30 days after date of the Encounter. The data comes from all [place] treatment facilities. Date/Time Radiology Report Provider Source May 15, 2024 08:34 AM WRIST,LEFT, 3 OR M ORE VIEWS: NAGA OLMOS [id number] [phone] M Exm Date: MAY 15, 2024@08:34 Req Phys: RHONDA RÍOS Loc: PB-ANTHONY PACT [facility] (Req'g Img Loc: PB-XRAY [place] Service: [place] [address] (Case [id number] COMPLETE) WRIST,LEFT, 3 OR MORE VIEWS (RAD Detailed) CPT:63080 Reason for Study: Left wrist pain Clinical History: Left wrist pain x 1 day after a fall Report Status: Verified Date Reported: MAY 15, 2024 Date Verified: MAY 15, 2024 Training And Development Officer E-Sig: Report: Three views of the left wrist reveal no acute osseous or adjacent soft tissue abnormality. Impression: No acute Primary Interpreting Staff: GLO BUCIO RADIOLOGIST (Training And Development Officer, no e-sig) /GLO Velázquez [place] [facility] Encounter Notes: All associated encounter notes This section contains the clinical notes associated to the Encounter. Date/Time Encounter Note(s) Provider Source May 07, 2024 09:30 AM PRIMARY CARE EDUCA TION NOTE: LOCAL TITLE: OPT PHY INSTR AUTO PB STANDARD TITLE: PRIMARY CARE EDUCATION NOTE DATE OF NOTE: MAY 07, 2024@09:30 ENTRY DATE: MAY 07, 2024@10:34:02 AUTHOR: SARIAH DENNISIGNER: URGENCY: STATUS: COMPLETED This documentation is related to: . F/U Visit Description of Today's Injury/Illness: MH MED MGMT Mental Health Testing: RETURN TO CLINIC: Return appointment is needed. . Special Instructions: . None. MEDICATION REVIEW/ASSESSMENT & PLAN: 1. continue medications' 2. RTC 6 months Active Outpatient Medications (including Supplies): Active Outpatient Medications Status 1) ARIPIPRAZOLE 20MG TAB TAKE ONE-HALF TABLET BY MOUTH ACTIVE AT BEDTIME FOR MOOD STABILIZATION 2) EPI(EQV-ADRENACLICK)0.3MG/0.3 ML INJCTR INJECT 1 PEN ACTIVE (0.3MG/0.3ML) INTRAMUSCULARLY ONE-TIME FOR ALLERGIC REACTION 3) FAMOTIDINE 40MG TAB TAKE ONE TABLET BY MOUTH TWICE A ACTIVE DAY FOR GASTROESOPHAGEAL REFLUX DISEASE 4) GABAPENTIN 100MG CAP TAKE ONE CAPSULE BY MOUTH THREE ACTIVE TIMES A DAY NEEDED FOR NERVE PAIN 5) HYDROXYZINE HCL 25MG TAB TAKE ONE TABLET BY MOUTH ACTIVE (S) THREE TIMES A DAY NEEDED FOR ANXIETY *MAY CAUSE DROWSINESS* 6) PANTOPRAZOLE NA 40MG EC TAB TAKE ONE TABLET BY MOUTH ACTIVE EVERY MORNING BEFORE A MEAL FOR GASTROESOPHAGEAL REFLUX DISEASE TAKE 30 MINUTES BEFORE MEAL(S) 7) PRAZOSIN HCL 2MG CAP TAKE ONE CAPSULE BY MOUTH AT ACTIVE BEDTIME FOR PTSD MAY CAUSE DIZZINESS OR DROWSINESS. Pending Outpatient Medications Status 1) ARIPIPRAZOLE 20MG TAB TAKE ONE-HALF TABLET BY MOUTH PENDING AT BEDTIME 2) HYDROXYZINE HCL 25MG TAB TAKE ONE TABLET BY MOUTH PENDING THREE TIMES A DAY NEEDED *MAY CAUSE DROWSINESS* 3) PRAZOSIN HCL 2MG CAP TAKE ONE CAPSULE BY MOUTH AT PENDING BEDTIME MAY CAUSE DIZZINESS OR DROWSINESS. Active Non-VA Medications Status 1) Non-VA ACETAMINOPHEN 325/ZUGTLQ97/CAFN 40MG TAB 1 TO ACTIVE 2 TABLETS BY MOUTH FOUR TIMES A DAY NEEDED 2) Non-VA CHOLECALCIF 50MCG (D3-2,000UNIT) TAB 50MCG BY ACTIVE MOUTH ONCE A DAY 3) Non-VA FLUTICASONE PROP 50MCG 120D NASAL INHL 2 ACTIVE SPRAYS NOSTRIL(S) ONCE A DAY NEEDED 4) Non-VA THIAMINE 100MG TAB 100MG BY MOUTH ONCE A DAY ACTIVE 14 Total Medications Medication reconciliation performed with confirmed /significant other and /significant other voiced an understandng of current medications? Yes /significant other were provided an updated medication list. Following results reviewed and discussed with patient: None Future Appointments: 06/04/2024 10:00 COM CARE-DENTAL GEN [id number] 06/30/2024 10:00 PB-DENTAL #2 09/28/2024 13:30 PB-DENTAL HYGEN #2 03/23/2025 10:00 PB-ANTHONY PACT VITALY CHENG WH /es/ SARIAH [place] [facility] Signed: 05/07/2024 10:34 SARIAH DENNIS [facility] May 07, 2024 09:30 AM PSYCHIATRY NOTE: LOCAL TITLE: PSYCHIATRIC PROGRESS NOTE PB STANDARD TITLE: PSYCHIATRY NOTE DATE OF NOTE: MAY 07, 2024@09:30 ENTRY DATE: MAY 07, 2024@10:35:13 AUTHOR: SARIAH DENNIS EXP COSIGNER: URGENCY: STATUS: COMPLETED CC: good HPI: NAGA OLMOS JANET is a 38-year-old man with a history of PTSD who presents for medication management follow up appointment after last appointment on 01/06/24 where he was continued on Abilify 10mg hs for mood, prazosin 2mg hs for insomnia, and vistaril 25mg tid for anxiety. He reported compliance with meds with no side effects and good clinical effect. He denied any depression or anxiety symptoms. No manic or psychotic sxs. Patient denied any suicidal or homicidal ideation. Current stressors include: no new stressors. PTSD symptoms included occasional nightmares. Interval Social History changes: none ROS: neg. Constitutional: good Weight:stable Sleep:better Energy:good allergies reviewed: EGGS PROBLEM LIST PER CPRS: reviewed 1) Acute posttraumatic stress disorder following combat (SNOMED CT 225813747) 2) Depression (SNOMED CT 87572130) 3) Anxiety (SNOMED CT 88286768) 4) Obstructive sleep apnea syndrome 5) Obstructive sleep apnea (SNOMED CT 66282186) 6) Gastroesophageal Reflux Disease 7) Seasonal allergic rhinitis 8) Ankle pain 9) Alcohol dependence 10) Exposure to potentially hazardous chemical 11) Pain in left leg comment: Trauma with L. hip pain, leg pain, and intermittent tremor LLE du 12) Chronic sinusitis 13) Tinnitus 14) Exposure to Potentially Hazardous Substance ([facility] [id number]) 15) Allergy to red meat (SNOMED CT 221967188) MEDICATIONS: reviewed Active and Recently Outpatient Medications (including Supplies): Active Outpatient Medications Status 1) ARIPIPRAZOLE 20MG TAB TAKE ONE-HALF TABLET BY MOUTH ACTIVE AT BEDTIME FOR MOOD STABILIZATION 2) EPI(EQV-ADRENACLICK)0.3MG/0.3 ML INJCTR INJECT 1 PEN ACTIVE (0.3MG/0.3ML) INTRAMUSCULARLY ONE-TIME FOR ALLERGIC REACTION 3) FAMOTIDINE 40MG TAB TAKE ONE TABLET BY MOUTH TWICE A ACTIVE DAY FOR GASTROESOPHAGEAL REFLUX DISEASE 4) GABAPENTIN 100MG CAP TAKE ONE CAPSULE BY MOUTH THREE ACTIVE TIMES A DAY NEEDED FOR NERVE PAIN 5) HYDROXYZINE HCL 25MG TAB TAKE ONE TABLET BY MOUTH ACTIVE (S) THREE TIMES A DAY NEEDED FOR ANXIETY *MAY CAUSE DROWSINESS* 6) PANTOPRAZOLE NA 40MG EC TAB TAKE ONE TABLET BY MOUTH ACTIVE EVERY MORNING BEFORE A MEAL FOR GASTROESOPHAGEAL REFLUX DISEASE TAKE 30 MINUTES BEFORE MEAL(S) 7) PRAZOSIN HCL 2MG CAP TAKE ONE CAPSULE BY MOUTH AT ACTIVE BEDTIME FOR PTSD MAY CAUSE DIZZINESS OR DROWSINESS. Pending Outpatient Medications Status 1) ARIPIPRAZOLE 20MG TAB TAKE ONE-HALF TABLET BY MOUTH PENDING AT BEDTIME 2) HYDROXYZINE HCL 25MG TAB TAKE ONE TABLET BY MOUTH PENDING THREE TIMES A DAY NEEDED *MAY CAUSE DROWSINESS* 3) PRAZOSIN HCL 2MG CAP TAKE ONE CAPSULE BY MOUTH AT PENDING BEDTIME MAY CAUSE DIZZINESS OR DROWSINESS. Active Non-VA Medications Status 1) Non-VA ACETAMINOPHEN 325/RBPUNA60/CAFN 40MG TAB 1 TO ACTIVE 2 TABLETS BY MOUTH FOUR TIMES A DAY NEEDED 2) Non-VA CHOLECALCIF 50MCG (D3-2,000UNIT) TAB 50MCG BY ACTIVE MOUTH ONCE A DAY 3) Non-VA FLUTICASONE PROP 50MCG 120D NASAL INHL 2 ACTIVE SPRAYS NOSTRIL(S) ONCE A DAY NEEDED 4) Non-VA THIAMINE 100MG TAB 100MG BY MOUTH ONCE A DAY ACTIVE 14 Total Medications I have reviewed current medications w/ Una at this visit. Medication list and allergy list has been updated. Efficacy and side effects of the medications were reviewed and the Una was provided a current medication list. denies questions, concerns, or problems with medications. O: reviewed Patient Weight History - Last Four 1. 205.2 lbs. / 93.1 kg. on MAY 07, 2024@09:19:52 2. 212.0 lbs. / 96.2 kg. on MAR 23, 2024@09:49:38 3. 210.6 lbs. / 95.5 kg. on NOV 19, 2023@14:11 4. 213.6 lbs. / 96.9 kg. on OCT 30, 2023@12:50:09 BMI: 27.1 Vitals (Per CPRS data): Temperature: 97.7 F [36.5 C] (05/07/2024 09:19) Blood Pressure: 128/84 (05/07/2024 09:19) Pulse: 61 (05/07/2024 09:19) Respirations: 20 (05/07/2024 09:19) MENTAL STATUS EXAM: Appearance and Behavior: The patient appears stated age. Attention to Hygiene: good Clothing: appropriate Eye Contact: good Level of Cooperation: good Speech: Rate: normal Volume: normal Articulation: good Spontaneity: normal Thought Processes: Rate of thoughts: normal Thought Content: normal Associations: intact Abnormal or Psychotic Thoughts: Auditory hallucinations: denies Visual hallucinations: denies Appearance of attention to internal stimuli: not present Overt evidence of delusions: not present Suicidal ideations: denies Homicidal ideations: denies Insight and Judgment: Insight: good Judgment: good Orientation: oriented to person, place, day, month, year, and situation Memory: Immediate Recall: intact Wweaa-xf-ttvm-minute recall: intact Attention and Concentration: good Language: Naming common objects: intact Repeating phrases: intact Fund of knowledge: Current events awareness: good Vocabulary: good Mood and Affect: Mood: better Affect: euthymic, restricted range Therapy provided in addition to e&m visit: Time spent in therapy: 16 minutes Total visit time: 30 minutes Modality: Supportive Psychotherapy Goals: Reduce overall frequency, intensity, and duration of the anxiety so daily functioning is not impaired. Focus: Learn and implement coping skills that result in a reduction of anxiety and improved daily functioning. Recent labs: SODIUM 140 mEq/L 03/23/2024 09:32 POTASSIUM 4.0 mEq/L 03/23/2024 09:32 CHLORIDE 106 mEq/L 03/23/2024 09:32 UREA NITROGEN 11 mg/dL 03/23/2024 09:32 CREATININE 0.91 mg/dL 03/23/2024 09:32 CALCIUM 9.7 mg/dL 03/23/2024 09:32 PROTEIN 7.5 g/dL 03/23/2024 09:32 ALBUMIN 4.9 g/dL 03/23/2024 09:32 ALKALINE PHOSPHATASE 81 U/L 03/23/2024 09:32 ALT/SGPT 22 U/L 03/23/2024 09:32 AST/SGOT 23 U/L 03/23/2024 09:32 TOTAL BILIRUBIN 0.7 mg/dL 03/23/2024 09:32 CARBON DIOXIDE 25 mEq/L 03/23/2024 09:32 GLUCOSE 92 mg/dL 03/23/2024 09:32 EGFR (CKD-EPI 2020) 111 03/23/2024 09:32 WBC 6.8 10*3/uL 03/23/2024 09:32 RBC 5.17 10*6/uL 03/23/2024 09:32 HGB 15.8 g/dL 03/23/2024 09:32 HCT 44.5 % 03/23/2024 09:32 MCV 86.1 fL 03/23/2024 09:32 MCH 30.6 pg 03/23/2024 09:32 MCHC 35.5 g/dL 03/23/2024 09:32 RDW 11.9 % 03/23/2024 09:32 PLT 270 10*3/uL 03/23/2024 09:32 MPV 10.7 fL 03/23/2024 09:32 NEUTROPHILS, AUTO % 69.2 % 03/23/2024 09:32 LYMPHOCYTES, AUTO % 21.5 % 03/23/2024 09:32 MONOCYTES, AUTO % 7.0 % 03/23/2024 09:32 EOSINOPHILS, AUTO % 0.9 % 03/23/2024 09:32 BASOPHILS, AUTO % 1.0 % 03/23/2024 09:32 IMMATURE GRANS, AUTO % 0.4 % 03/23/2024 09:32 NEUTROPHILS, ABSOLUTE 4.72 10*3/uL 03/23/2024 09:32 LYMPHOCYTES, ABSOLUTE 1.47 10*3/uL 03/23/2024 09:32 MONOCYTES, ABSOLUTE 0.48 10*3/uL 03/23/2024 09:32 EOSINOPHILS, ABSOLUTE 0.06 10*3/uL 03/23/2024 09:32 BASOPHILS, ABSOLUTE 0.07 10*3/uL 03/23/2024 09:32 IMMATURE GRANS, AUTO ABS 0.03 10*3/uL 03/23/2024 09:32 HGA1C 4.8 % 03/23/2024 09:32 TRIGLYCERIDE 61 mg/dL 03/23/2024 09:32 CHOLESTEROL 123 mg/dL 03/23/2024 09:32 HDL(New) 36.0 L mg/dL 03/23/2024 09:32 CALCULATED LDL 74.8 mg/dL 03/23/2024 09:32 HDL % OF TOTAL CHOLESTEROL (PB) 29.3 % 03/23/2024 09:32 TSH 0.436 L uIU/mL 03/23/2024 09:32 URINE COLOR Light Yellow 04/07/2024 10:01 APPEARANCE CLEAR 04/07/2024 10:01 SPECIFIC GRAVITY 1.011 05/11/2022 11:13 U.PH 6.5 04/07/2024 10:01 U.GLUCOSE NEGATIVE mg/dL 05/11/2022 11:13 U.KETONES NEGATIVE mg/dL 05/11/2022 11:13 U.BILIRUBIN NEGATIVE mg/dL 04/07/2024 10:01 U.BLOOD NEGATIVE mg/dL 05/11/2022 11:13 U.NITRITE NEGATIVE mg/dL 04/07/2024 10:01 U.LEUK.EST. NEGATIVE 05/11/2022 11:13 UROBILINOGEN NORMAL mg/dL 05/11/2022 11:13 No URINE DRUG SCREEN EO data found Assessment: Patient is a 38yo man with PTSD that is well-controlled with current treatment plan. Patient is a low acute and low chronic suicide risk based on risk assessment and can safely be managed on an outpatient basis. Diagnosis: PTSD Plan: 1. Continue medications 2. RTC 6 months Discussed risks, benefits, side effects. Patient expressed understanding and agreed to medication trial. We discussed alternatives to treatment, including no treatment, as well as risks, benefits, side effects. The patient/guardian understood and consented to treatment provided. INSTRUCTIONS GIVEN TO PATIENT/FAMILY: Report medication side effects promptly No alcohol/illicit drug use with medication Exercise caution with driving/use of machinery Monitor for sedation with use of the medication and if needed avoid use in situations where decreased level of alertness could potentially be dangerous Follow up with Primary Care Provider Provided orientation to the clinic and ways to access crisis/emergency care Contact crisis line for suicidal or homicidal thoughts. Emergency procedures were reviewed including 988,sucide prevention lifeline(1- [phone]). advised to return to ER or come in as walk-in to the clinic, should they experience any crisis. Una had an opportunity to ask questions and agreed with the treatment plan. The was instructed to contact mental health (or primary care clinic) with any problems or concerns. /es/ SARIAH Bazzi [facility] Signed: 05/08/2024 09:08 KISARIAH Maegan [facility] [place] [facility] May 07, 2024 09:16 AM NURSING PROGRESS N OTE: LOCAL TITLE: NURSING NOTE PB STANDARD TITLE: NURSING PROGRESS NOTE DATE OF NOTE: MAY 07, 2024@09:16 ENTRY DATE: MAY 07, 2024@09:16:51 AUTHOR: ABRAHAM MARIA COSIGNER: URGENCY: STATUS: COMPLETED Una is here for his scheduled F2F psychiatry appt. he is alert and oriented, resps even and unlabored, gait steady. Una is pleasant and conversational. He talked about his challenges with alpha gal. Una showed this nurse his watch that he can monitor his vitals as well as sleep pattern. Active Outpatient Medications: Active Outpatient Medications (including Supplies): Active Outpatient Medications Status 1) ARIPIPRAZOLE 20MG TAB TAKE ONE-HALF TABLET BY MOUTH ACTIVE AT BEDTIME FOR MOOD STABILIZATION 2) EPI(EQV-ADRENACLICK)0.3MG/0.3 ML INJCTR INJECT 1 PEN ACTIVE (0.3MG/0.3ML) INTRAMUSCULARLY ONE-TIME FOR ALLERGIC REACTION 3) FAMOTIDINE 40MG TAB TAKE ONE TABLET BY MOUTH TWICE A ACTIVE DAY FOR GASTROESOPHAGEAL REFLUX DISEASE 4) GABAPENTIN 100MG CAP TAKE ONE CAPSULE BY MOUTH THREE ACTIVE TIMES A DAY NEEDED FOR NERVE PAIN 5) HYDROXYZINE HCL 25MG TAB TAKE ONE TABLET BY MOUTH ACTIVE (S) THREE TIMES A DAY NEEDED FOR ANXIETY *MAY CAUSE DROWSINESS* 6) PANTOPRAZOLE NA 40MG EC TAB TAKE ONE TABLET BY MOUTH ACTIVE EVERY MORNING BEFORE A MEAL FOR GASTROESOPHAGEAL REFLUX DISEASE TAKE 30 MINUTES BEFORE MEAL(S) 7) PRAZOSIN HCL 2MG CAP TAKE ONE CAPSULE BY MOUTH AT ACTIVE BEDTIME FOR PTSD MAY CAUSE DIZZINESS OR DROWSINESS. Active Non-VA Medications Status 1) Non-VA ACETAMINOPHEN 325/TUHHLV95/CAFN 40MG TAB 1 TO ACTIVE 2 TABLETS BY MOUTH FOUR TIMES A DAY NEEDED 2) Non-VA CHOLECALCIF 50MCG (D3-2,000UNIT) TAB 50MCG BY ACTIVE MOUTH ONCE A DAY 3) Non-VA FLUTICASONE PROP 50MCG 120D NASAL INHL 2 ACTIVE SPRAYS NOSTRIL(S) ONCE A DAY NEEDED 4) Non-VA THIAMINE 100MG TAB 100MG BY MOUTH ONCE A DAY ACTIVE states he thinks he is taking all the above meds as prescribed, he admitted that when he was feeling sick around Thanksgiving he did not take his meds. He denies any change in side effects with prazosin, hydroxyzine or aripiprazole and they are effective. Alcohol Use Screen (AUDIT-C) - V: Alcohol Screen: SCREEN FOR ALCOHOL (AUDIT-C) An alcohol screening test (AUDIT-C) was negative (score=0). 1. How often did you have a drink containing alcohol in the past year? Consider a drink to be a 12 ounce can or bottle of regular beer, 8 ounces of malt liquor, a 5 ounce glass of table wine, or a 1.5 ounce shot of liquor (like scotch, gin, or vodka). Never 2. How many drinks containing alcohol did you have on a typical day when you were drinking in the past year? Response not required due to responses to other questions. 3. How often did you have six or more drinks on one occasion in the past year? Response not required due to responses to other questions. Tobacco Use Screening - AT,DE,L,M,N,P,PH,PS,RT,S,U: The patient is a former cigarette smoker. The patient has never used other types of tobacco. AIMS Screening (Mental Health Only): AIMS (Mental Health Instrument) The patient was evaluated for symptoms of tardive dyskinesia using the AIMS. Total score for items 1-7: 0 Pain Assessment: - PAIN ASSESSMENT: .. Patient is reporting some pain. PAIN SCORE TODAY: 3- annoying left ankle, back and neck Patient's self-identified pain level: 3 Una was escorted to room 112 for his appt with Dr Dennis. /raiza/ MARCO A GAONA, RN [facility] Signed: 05/07/2024 09:29 ABRAHAM MARIA [facility]
--- OUTSIDE RECORDS SUMMARY | 2024-05-07 04:30 | XMS_ITS | Encounter Summary ---
Author Name [facility] [place] Organization [facility] [place] Address [address] [place] [address] Care Team Providers Care Rf Engineer Name Role Phone JUAN JOSÉ PINO Primary Care Provider RHONDA Teresa Primary Care Provider Unavail able Selected Encounter This section includes the information on record at [place] for the Encounter. Date/Time Encounter Type Encounter Description Reason Provider Source May 07, 2024 09:30 AM OFF/OP EST SEPTEMBER X REQ PHY/QHP PRIMARY CARE/MEDICINE ICD-10-CM R09.81 Nasal congestion CUSTRED,JIMENA Emma Blanca Encounter Template Text not used by [place] Assessments - Encounter Diagnoses This section includes the primary and secondary diagnoses documented for the Encounter. Date/Time Primary/Secondary Diagnosis Diagnosis Name Provider Source May 07, 2024 08:05 PM PRIMARY Nasal congestion LM MOTAI J [facility] Plan of Treatment: Future Appointments (+ 6 months) and Future Tests (+/- 45 days) The Plan of Treatment section includes future care activities for the patient from all [place] treatmentfacilities. This section includes future appointments and future orders which are active, pending or scheduled. Future Appointments This section includes appointments that were scheduled to occur 6 months from the date of the Encounter, up to a maximum of 20 appointments. The data comes from all [place] treatment facilities. Appointment Date/Time Appointment Type Appointme nt Facility Name May 15, 2024 08:30 AM AMBULATORY - MEDICINE [facility] Jun 04, 2024 10:00 AM AMBULATORY - MEDICINE [facility] DAVINA [facility]GWEN [facility] Jun 23, 2024 09:30 AM AMBULATORY - MEDICINE [facility] Lab Results: +/- 30 days of the encounter This section includes the Chemistry and Hematology Lab Results on record with [place] for the patient. Radiology Reports and Pathology Reports are provided separately, in subsequent sections. Lab Results This section contains the Chemistry/Hematology Results that were resulted 30 days before or 30 daysafter the date of the Encounter. Date/Time Source Result Type Result - Unit Interpretation Reference Range Specimen Type Comment May 07, 2024 10:40 AM [facility] POC UA (STL-PB-MA) URINE Specimen Type: URINE No comment entered. Ordering Provider: RHONDA RÍOS Report Released Date/Time: May 07, 2024 10:47 AM Reporting Lab: [facility] [address] [facility] [id number] Performing Lab: [facility] [address] [facility] [id number] PROTEIN POC UA Negative mg/dL Negative BLOOD [...] 07, 2024 10:30 AM 97.9 62 143/99 [facility] May 07, 2024 09:19 AM 97.7 61 128/84 20 99 3 73 205.2 27 [facility] Social History: Smoking Status (Most current) and Tobacco Use (All prior to encounter date) This section includes the most current, and the historical, smoking and tobacco- related health factors from the [place] facility where the Encounter took place. Current Smoking Status This section includes the most current smoking, or tobacco-related health factor, from the [place] facility where the Encounter took place. Date/Time Current Smoking Status Comment Facil ity May 07, 2024 09:00 AM VA-TOBACCO USE FORMER CIGARETTES [facility] Tobacco Use History This section includes a history of the smoking, or tobacco-related health factors, that were collected on or before the date of the Encounter. The data comes from the [place] facility where the Encounter took place. Date/Time Smoking Status/Tobacco Use Comment F acility May 07, 2024 09:00 AM VA-TOBACCO USE FORMER CIGARETTES [facility] May 13, 2023 08:30 AM VA-TOBACCO FORMER USER [facility] May 13, 2023 08:30 AM VA-TOBACCO QUIT 5 TO < 15 YRS [facility] May 11, 2022 10:30 AM VA-TOBACCO FORMER USER [facility] May 11, 2022 10:30 AM VA-TOBACCO QUIT 1 TO < 5 YRS [facility] Feb 05, 2018 02:33 PM QUIT TOBACCO >12 MO & <7 YRS AGO [facility] Aug 21, 2017 10:24 AM QUIT TOBACCO >12 MO & <7 YRS AGO [facility] Mar 12, 2016 06:56 AM QUIT TOBACCO >12 MO & <7 YRS AGO [facility] Advance Directives: All historical and current Section Date Range: From patient's date of to the date document was created. This section includes ALL of a patient's completed or amended [place] Advance and Rescinded Directives. The entries below indicate that a directive exists for the patient, but an actual copy is not included with this document. The data comes from all [place] facilities. Date Advance Directives Provider Source Sep 10, 2018 ADVANCE DIRECTIVE KISHA AGEE AR VANPH May 05, 2018 ADVANCE DIRECTIVE KITTY VALDERRAMAU FF [facility] October 16, 2010 ADVANCE DIRECTIVE DISCUSSION SIRENA FORREST [facility] Radiology Reports: +/- 30 days of the [...] the Encounter. The data comes from all [place] treatment facilities. Date/Time Radiology Report Provider Source May 15, 2024 08:34 AM WRIST,LEFT, 3 OR M ORE VIEWS: NAGA OLMOS [id number] -[id number] M Exm Date: MAY 15, 2024@08:34 Req Phys: RHONDA RÍOS Loc: PB-[facility]THONY [facility]CT [facility] (Req'g Img Loc: PB-XRAY [place] Service: [place] [address] (Case [id number] COMPLETE) WRIST,LEFT, 3 OR MORE VIEWS (RAD Detailed) CPT:74521 Reason for Study: Left wrist pain Clinical History: Left wrist pain x 1 day after a fall Report Status: Verified Date Reported: MAY 15, 2024 Date Verified: MAY 15, 2024 Braddisher E-Sig: Report: Three views of the left wrist reveal no acute osseous or adjacent soft tissue abnormality. Impression: No acute Primary Interpreting Staff: GLO BUCIO RADIOLOGIST (Braddisher, no e-sig) /GLO Velázquez [facility] Encounter Notes: All associated encounter notes This section contains the clinical notes associated to the Encounter. Date/Time Encounter Note(s) Provider Source May 07, 2024 10:30 AM NURSING PROGRESS N OTE: LOCAL TITLE: NURSING NOTE PB STANDARD TITLE: NURSING PROGRESS NOTE DATE OF NOTE: MAY 07, 2024@10:30 ENTRY DATE: MAY 07, 2024@19:56:02 AUTHOR: JIMENA MOTA COSIGNER: URGENCY: STATUS: COMPLETED Blood Pressure: 143/99 Pulse: 62 Temperature: 97.9 F (36.6 C) Pulse Oximetry: 98% Active Outpatient Medications: Active Outpatient Medications (including Supplies): Active Outpatient Medications Status 1) ARIPIPRAZOLE 20MG TAB TAKE ONE-HALF TABLET BY MOUTH ACTIVE (S) AT BEDTIME FOR MOOD STABILIZATION 2) EPI(EQV-ADRENACLICK)0.3MG/0.3 [...] Active Non-VA Medications Status 1) Non-VA ACETAMINOPHEN 325/[id number]/CAFN 40MG TAB 1 TO ACTIVE 2 TABLETS BY MOUTH FOUR TIMES A DAY NEEDED 2) Non-VA CHOLECALCIF 50MCG (D3-2,000UNIT) TAB 50MCG BY ACTIVE MOUTH ONCE A DAY 3) Non-VA FLUTICASONE PROP 50MCG 120D NASAL INHL 2 ACTIVE SPRAYS NOSTRIL(S) ONCE A DAY NEEDED 4) Non-VA THIAMINE 100MG TAB 100MG BY MOUTH ONCE A DAY ACTIVE CC: [place] presents to clinic for congestion and cough. Subjective: states he had respiratory infection after thanksgiving and has nasal congestion and cough since illness. Denies fever, chills, or malaise. O/A: is alert and oriented. Eyes are clear. No ear pain or drainage. Throat visualized with no redness, swelling, or pustules. States he notices runny nose and occasional cough. Respirations easy and non-labored. Breath sounds normal throughout lung gregory. Heart rate regular with no peripheral edema. [place] also reports some urinary frequency. Denies urgency, burning, or itching. No acute signs of illness noted. Plan/ Intervention: Discussed findings with LORETTA Ríos. Probable post nasal drip following recent illness. denies using flonase nasal spray as directed. Educated to use daily as prescribed and take OTC allergy medication PRN for nasal congestion. POC urine done today in clinic. Urine clear yellow with no cloudiness or sediment. LEUKOCYTES POC UA Negative Ref: Negative GLUCOSE POC UA Negative mg/dL Ref: Negative BILIRUBIN POC UA Negative Ref: Negative KETONES POC UA Negative mg/dL Ref: Negative SPEC GRAV POC UA 1.015 1.005 - 1.030 BLOOD POC UA Negative Ref: Negative pH POC UA 7.0 5.0 - 8.0 PROTEIN POC UA Negative mg/dL Ref: Negative UROBILINOGEN POC UA 0.2 E.U./dL 0.1 - 1.0 NITRITE POC UA Negative Ref: Negative COLOR POC UA Yellow Ref: YELLOW CLARITY POC UA Clear Ref: CLEAR Comments: Ordering Provider: Rhonda Ríos SIDE SEAM MACHINE OPERATOR Report Released Date/Time: May 07, 2024@10:47 Performing Lab: [facility] [CLIA# [id number]] [address] [place] [address] If symptoms worsen or new one arise report to clinic for evaluation. States understanding. RTC: As scheduled and as needed. Per [facility] Directive 1605.06, wristband documentation: Patient wristband was removed and destroyed by (staff name) Jimena Mota RN and placed in the designated [employer] bin. /raiza/ JIMENA STRICKLAND RN [place] [facility] Signed: 05/07/2024 20:05 Receipt Acknowledged By: 05/07/2024 20:07 /es/ KATHLEEN Medina-CHAVA [place],JIMENA Carter [facility] MARS
--- OUTSIDE RECORDS SUMMARY | 2024-05-15 03:30 | XMS_ITS | Encounter Summary ---
Author Name [facility] [place] Organization [place] Address [address] [place] [address] Care Team Providers Care Structural Analyst Name Role Phone JUAN JOSÉ PINO Primary Care Provider RHONDA Teresa Primary Care Provider Unavail able Selected Encounter This section includes the information on record at [place] for the Encounter. Date/Time Encounter Type Encounter Description Reason Provider Source May 15, 2024 08:30 AM OFF/OP EST SEPTEMBER X REQ PHY/QHP PRIMARY CARE/MEDICINE ICD-10-CM M25.532 Pain in left wrist BERLIN NÚÑEZ Blanca Encounter Template Text not used by [place] Assessments - Encounter Diagnoses This section includes the primary and secondary diagnoses documented for the Encounter. Date/Time Primary/Secondary Diagnosis Diagnosis Name Provider Source May 15, 2024 02:38 PM PRIMARY Pain in left wrist BERLIN NÚÑEZ [facility] Plan of Treatment: Future Appointments (+ 6 months) and Future Tests (+/- 45 days) The Plan of Treatment section includes future care activities for the patient from all [place] treatmentfacilities. This section includes future appointments and future orders which are active, pending or scheduled. Future Appointments This section includes appointments that were scheduled to occur 6 months from the date of the Encounter, up to a maximum of 20 appointments. The data comes from all [place] treatment facilities. Appointment Date/Time Appointment Type Appointme nt Facility Name Jun 04, 2024 10:00 AM AMBULATORY - MEDICINE [facility] Jun 23, 2024 09:30 AM AMBULATORY - MEDICINE [facility] Nov 09, 2024 09:30 AM AMBULATORY - MEDICINE [facility] Lab Results: +/- 30 days of [...] Type Comment May 07, 2024 10:40 AM [facility] POC UA (STL-PB-MA) URINE Specimen Type: URINE No comment entered. Ordering Provider: RHONDA RÍOS Report Released Date/Time: May 07, 2024 10:47 AM Reporting Lab: [facility] [address] [facility] [id number] Performing Lab: [facility] [address] [facility] [id number] PROTEIN POC UA Negative mg/dL Negative BLOOD [...] Height Weight Body Mass Index Source May 15, 2024 08:29 AM 97.9 75 131/85 20 99 3 209.9 28 [facility] Social History: Smoking Status (Most current) and [...] 09:00 AM VA-TOBACCO NEVER USED OTHER TYPE [facility] Tobacco Use History This section includes a history of the smoking, or tobacco-related health factors, that were collected on or before the date of the Encounter. The data comes from the [place] facility where the Encounter took place. Date/Time Smoking Status/Tobacco Use Comment F acility May 07, 2024 09:00 AM VA-TOBACCO USE FORMER CIGARETTES [facility] May 13, 2023 08:30 AM VA-TOBACCO FORMER USER [facility] May 13, 2023 08:30 AM VA-TOBACCO QUIT 5 TO < 15 YRS [facility] May 11, 2022 10:30 AM [facility] May 11, 2022 10:30 AM VA-TOBACCO QUIT 1 TO < 5 YRS [facility] Feb 05, 2018 02:33 PM QUIT TOBACCO >12 MO & <7 YRS AGO [facility] Aug 21, 2017 10:24 AM QUIT TOBACCO >12 MO & <7 YRS AGO [facility] Mar 12, 2016 06:56 AM QUIT TOBACCO >12 MO & <7 YRS AGO [facility] Advance Directives: All historical and current Section [...] 05, 2018 ADVANCE DIRECTIVE KITTY VALDERRAMAU FF [facility] October 16, 2010 ADVANCE DIRECTIVE DISCUSSION SIRENA FORREST [facility] Radiology Reports: +/- 30 days of the [...] the Encounter. The data comes from all [place] treatment facilities. Date/Time Radiology Report Provider Source May 15, 2024 08:34 AM WRIST,LEFT, 3 OR M ORE VIEWS: NAGA OLMOS [id number] -1985 M Exm Date: MAY 15, 2024@08:34 Req Phys: RHONDA RÍOS Loc: PB-ANTHONY PACT [facility]ITALY AG (Req'g Img Loc: PB-XRAY [place] Service: [place] [address] (Case [id number] COMPLETE) WRIST,LEFT, 3 OR MORE VIEWS (RAD Detailed) CPT:78215 Reason for Study: Left wrist pain Clinical History: Left wrist pain x 1 day after a fall Report Status: Verified Date Reported: MAY 15, 2024 Date Verified: MAY 15, 2024 Truck Washer E-Sig: Report: Three views of the left wrist reveal no acute osseous or adjacent soft tissue abnormality. Impression: No acute Primary Interpreting Staff: GLO BUCIO, RADIOLOGIST (Truck Washer, no e-sig) /GLO Velázquez [facility] Encounter Notes: All associated encounter notes This section contains the clinical notes associated to the Encounter. Date/Time Encounter Note(s) Provider Source May 15, 2024 08:33 AM NURSING PROGRESS N OTE: LOCAL TITLE: NURSING NOTE PB STANDARD TITLE: NURSING PROGRESS NOTE DATE OF NOTE: MAY 15, 2024@08:33 ENTRY DATE: MAY 15, 2024@08:33:55 AUTHOR: BERLIN NÚÑEZ EXP COSIGNER: URGENCY: STATUS: COMPLETED NURSING NOTE PB Has ADDENDA This is a 38 year old MALE with known Allergies as noted: EGGS On the following Active Medications: Active Outpatient Medications (including Supplies): Active Outpatient Medications Status 1) ARIPIPRAZOLE 20MG TAB TAKE ONE-HALF TABLET BY MOUTH AT ACTIVE (S) BEDTIME Indication: FOR MOOD STABILIZATION 2) EPI(EQV-ADRENACLICK)0.3MG/0. 3ML INJCTR INJECT 1 PEN ACTIVE (0.3MG/0.3ML) INTRAMUSCULARLY ONE-TIME Indication: FOR ALLERGIC REACTION 3) FAMOTIDINE 40MG TAB TAKE ONE TABLET BY MOUTH TWICE A DAY ACTIVE Indication: FOR GASTROESOPHAGEAL REFLUX DISEASE 4) GABAPENTIN 100MG CAP TAKE ONE CAPSULE BY MOUTH THREE TIMES A ACTIVE DAY NEEDED Indication: FOR NERVE PAIN 5) HYDROXYZINE HCL 25MG TAB TAKE ONE TABLET BY MOUTH THREE ACTIVE (S) TIMES A DAY NEEDED *MAY CAUSE DROWSINESS* Indication: FOR ANXIETY 6) PANTOPRAZOLE NA 40MG EC TAB TAKE ONE TABLET BY MOUTH EVERY ACTIVE MORNING BEFORE A MEAL TAKE 30 MINUTES BEFORE MEAL(S) Indication: FOR GASTROESOPHAGEAL REFLUX DISEASE 7) PRAZOSIN HCL 2MG CAP TAKE ONE CAPSULE BY MOUTH AT BEDTIME ACTIVE MAY CAUSE DIZZINESS OR DROWSINESS. Indication: FOR PTSD Active Non-VA Medications Status 1) Non-VA ACETAMINOPHEN 325/EZQMBS25/CAFN 40MG TAB 1 TO 2 ACTIVE TABLETS BY MOUTH FOUR TIMES A DAY NEEDED 2) Non-VA CHOLECALCIF 50MCG (D3-2,000UNIT) TAB 50MCG BY MOUTH ACTIVE ONCE A DAY 3) Non-VA FLUTICASONE PROP 50MCG 120D NASAL INHL 2 SPRAYS ACTIVE NOSTRIL(S) ONCE A DAY NEEDED 4) Non-VA THIAMINE 100MG TAB 100MG BY MOUTH ONCE A DAY ACTIVE 11 Total Medications C/C: pain in left wrist post fall S: presents to the clinic as a walk-in. [place] reports he had a fall one day ago. reports he broke his fall with his left hand and wrist. [place] is reporting limited range of motion in wrist but able to move all fingers. [place] reports pain level of 3/10 resting but 10/10 with movement. O/A: ambulated to exam room with steady gait and no assistance. [place] alert and oriented x4 with unlabored breathing. [place] has full range of motion in all fingers. trace edema noted to left wrist. slight bruising noted to medial side of wrist. [place] grimaces with any movement of wrist. Vital Signs: See cover sheet P: Reviewed with Provider. Xray ordered obtained and reviewed by Provider. Provider recombs supportive measures, rest, ice, OTC pain relievers and a wrist brace. Educated [place] on the above and advise if symptoms worsen of pain is un relieved to report to ER and call self-reporting number. [place] voiced understanding and all questions and concerns addressed at this time. [place] escorted to lobby in satisfactory condition. Consult placed for left wrist brace. RTC: Advised to return to clinic as needed or report to ER if symptoms worsen. /raiza/ GISELA Raymond [facility] Signed: 05/15/2024 14:38 Receipt Acknowledged By: 05/17/2024 15:59 /raiza/ KATHLEEN [facility]inaMer[facility] CenterMARS 05/15/2024 ADDENDUM STATUS: COMPLETED Per [facility] Directive 1605.06, wristband documentation: Patient wristband was removed and destroyed by (staff name) [place] Núñez and placed in the designated [employer] bin. /raiza/ GISELA Raymond [facility] Signed: 05/15/2024 14:47 BERLIN NÚÑEZ [facility]
--- OUTSIDE RECORDS SUMMARY | 2024-06-23 04:30 | XMS_ITS | Encounter Summary ---
Author Name [facility] Organization [facility] Address [address] [place] [address] Care Team Providers Care Glass Cylinder Flanger Name Role Phone JUAN JOSÉ PINO Primary Care Provider Unavailabl e RHONDA RÍOS Primary Care Provider Unavail able Selected Encounter This section includes the information on record at [facility] for the Encounter. Date/Time Encounter Type Encounter Description Reason Provider Source Jun 23, 2024 09:30 AM OFFICE O/P EST LOW 20 MIN PRIMARY CARE/MEDICINE ICD-10-CM R10.84 Generalized abdominal pain SARI RÍOS [facility] Encounter Template Text not used by [place] Assessments - Encounter Diagnoses This section includes the primary and secondary diagnoses documented for the Encounter. Date/Time Primary/Secondary Diagnosis Diagnosis Name Provider Source Jun 30, 2024 08:36 AM PRIMARY Generalized abdominal pain MARILIN RÍOS [facility] [facility] Jun 30, 2024 08:36 AM SECONDARY Other fatigue MARILIN RÍOS [place] [facility] Plan of Treatment: Future Appointments (+ 6 months) and Future Tests (+/- 45 days) The Plan of Treatment section includes future care activities for the patient from all [facility] treatment[facility]ilities. This section includes future appointments and future orders which are active, pending or scheduled. Future Appointments This section includes appointments that were scheduled to occur 6 months from the date of the Encounter, up to a maximum of 20 appointments. The data comes from all [place] treatment facilities. Appointment Date/Time Appointment Type Appointme nt Facility Name Nov 09, 2024 09:30 AM AMBULATORY - MEDICINE [facility] Nov 17, 2024 09:30 AM AMBULATORY - MEDICINE [facility] Nov 19, 2024 11:00 AM AMBULATORY - MEDICINE [facility] Lab Results: +/- 30 days of the encounter This section includes the Chemistry and Hematology Lab Results on record with [facility] for the patient. Radiology Reports and Pathology Reports are provided separately, in subsequent sections. Lab Results This section contains the Chemistry/Hematology Results that were resulted 30 days before or 30 daysafter the date of the Encounter. Date/Time Source Result Type Result - Unit Interpretation Reference Range Specimen Type Comment Jun 23, 2024 10:27 AM [facility] COMPREHENSIVE METABOLIC PANEL PLASMA Specimen Type: PLASMA No comment entered. Ordering Provider: SHANT RÍOS Report Released Date/Time: Jun 23, 2024 10:17 AM Reporting Lab: [place] [facility] [address] [place] [address] Performing Lab: [place] [facility] [address] [place] [address] CREATININE 0.85 mg/dL 0.7-1.3 UREA NITROGEN 19 mg/dL 9-25 GLUCOSE 84 mg/dL 72-99 SODIUM 137 meq/L 136-145 POTASSIUM 4.2 meq/L 3.5-5 CHLORIDE 107 meq/L 98-107 CARBON DIOXIDE 24 meq/L 22-31 CALCIUM 9.5 mg/dL 8.4-10.4 PROTEIN 7.3 g/dL 6-8.6 ALBUMIN 4.6 g/dL 3.4-5 TOTAL BILIRUBIN 0.8 mg/dL 0.2-1.2 ALKALINE PHOSPHATASE 84 U/L 40-150 AST/SGOT 20 U/L 5-34 ALT/SGPT 20 U/L 8-40 EGFR (CKD-EPI 2020) 114 Jun 23, 2024 10:27 AM [facility] CBC BLOOD Specimen Type: BLOOD No comment entered. Ordering Provider: RHONDA RÍOS Report Released Date/Time: Jun 23, 2024 10:17 AM Reporting Lab: [place] [facility] [address] [place] [address] Performing Lab: [place] [facility] [address] [place] [address] WBC 7.6 10*3/uL 3.6-11.2 RBC 5.03 10*6/uL 4.10-5.70 HGB 15.2 g/dL 13.1-16.8 HCT 42.8 38.2-48.4 MCV 85.1 fL 80.0-100.0 MCH 30.2 pg 27.0-34.0 MCHC 35.5 g/dL 33.0-36.0 PLT 280 10*3/uL 150-400 MPV 10.4 fL 7.5-11.2 RDW 12.1 11.8-15.1 LYMPHOCYTES, AUTO % 27.5 MONOCYTES, AUTO % 8.3 NEUTROPHILS, AUTO % 61.9 EOSINOPHILS, AUTO % 1.2 BASOPHILS, AUTO % 0.8 LYMPHOCYTES, ABSOLUTE 2.10 10*3/uL 0.77- 4.50 MONOCYTES, ABSOLUTE 0.63 10*3/uL 0.19-0. 8 NEUTROPHILS, ABSOLUTE 4.73 10*3/uL 2.10- 8.00 EOSINOPHILS, ABSOLUTE 0.09 10*3/uL 0.00- 0.60 BASOPHILS, ABSOLUTE 0.06 10*3/uL 0.00-0. 20 IMMATURE GRANS, AUTO % 0.3 IMMATURE GRANS, AUTO ABS 0.02 10*3/uL 0. 00-0.05 Vital Signs: All taken on the encounter date This section contains inpatient and outpatient Vital Signs collected on the date of the Encounter. Date/Time Temperature Pulse Blood Pressure Respiratory Rate SP02 Pain Height Weight Body Mass Index Source Jun 23, 2024 09:45 AM 98 67 138/85 18 98 211 28 [facility] Social History: Smoking Status (Most current) and Tobacco Use (All prior to encounter date) This section includes the most current, and the historical, smoking and tobacco- related health factors from the [place] facility where the Encounter took place. Current Smoking Status This section includes the most current smoking, or tobacco-related health factor, from the [place] facility where the Encounter took place. Date/Time Current Smoking Status Comment Facil ity May 07, 2024 09:00 AM HI-TOBACCO USE FORMER CIGARETTES [facility] Tobacco Use History This section includes a history of the smoking, or tobacco-related health factors, that were collected on or before the date of the Encounter. The data comes from the [place] facility where the Encounter took place. Date/Time Smoking Status/Tobacco Use Comment F acility May 07, 2024 09:00 AM VA-TOBACCO USE FORMER CIGARETTES [facility] May 13, 2023 08:30 AM VA-TOBACCO FORMER USER [facility] May 13, 2023 08:30 AM VA-TOBACCO QUIT 5 TO < 15 YRS [facility] May 11, 2022 10:30 AM VA-TOBACCO FORMER USER [facility] May 11, 2022 10:30 AM VA-TOBACCO QUIT 1 TO < 5 YRS [facility] Feb 05, 2018 02:33 PM QUIT TOBACCO >12 MO & <7 YRS AGO [facility] Aug 21, 2017 10:24 AM QUIT TOBACCO >12 MO & <7 YRS AGO [facility] Mar 12, 2016 06:56 AM QUIT TOBACCO >12 MO & <7 YRS AGO [facility] Advance Directives: All historical and current Section Date Range: From patient's date of to the date document was created. This section includes ALL of a patient's completed or amended [place] Advance and Rescinded Directives. The entries below indicate that a directive exists for the patient, but an actual copy is not included with this document. The data comes from all [place] facilities. Date Advance Directives Provider Source Sep 10, 2018 ADVANCE DIRECTIVE KISHA AGEE AR VANPH May 05, 2018 ADVANCE DIRECTIVE KITTY VALDERRAMAU FF [facility] October 16, 2010 ADVANCE DIRECTIVE DISCUSSION SIRENA FORREST [facility] Encounter Notes: All associated encounter notes This section contains the clinical notes associated to the Encounter. Date/Time Encounter Note(s) Provider Source Jun 25, 2024 05:01 PM PRIMARY CARE MEDIC ATION MGT NOTE: LOCAL TITLE: MEDICATION RENEWAL/REFILL PB STANDARD TITLE: PRIMARY CARE MEDICATION MGT NOTE DATE OF NOTE: JUN 25, 2024@17:01 ENTRY DATE: JUN 25, 2024@17:01:32 AUTHOR: SINDY WYATT COSIGNER: URGENCY: STATUS: COMPLETED NAGA OLMOS has contacted the and is requesting that the following prescription(s) be renewed. The patient reports that he/she is currently LOW on his/her supply of medication. He/she is requesting a new supply be mailed by MEDICATION REQUESTED: Drug Name FLUTICASONE PROP 50MCG 120D NASAL INHL Issue Date 04/29/2014 SIG INSTILL 1 SPRAY IN EACH NOSTRIL ONCE A DAY (MUST BE USED DIRECTED FOR MINIMUM OF 21 DAYS TO PROVIDE ADEQUATE BENEFITS) FOR ALLERGIES Facility: [facility] Recall visit scheduled? Future visits: 06/30/24 10:00 am PB-DENTAL # 09/28/24 1:30 pm PB-DENTAL HYGEN # 11/05/24 10:00 am PB-ANTHONY IND BH PSI BRASS [phone] 03/23/25 10:00 am PB-ANTHONY PACT FOXTROT AWNING INSTALLER W [phone] ====== The following is informational only for those patients that are on long-term opiate therapy: Opioid Consent: No data available for: CONSENT FOR LONG-TERM OPIOIDS FOR PAIN No drugs in class: CN101 (OPIOID ANALGESICS) Last UDS: Collection DT Specimen Test Name Result Units Ref Range 01/21/2022 16:54 URINE CREATuF 215.83 mg/dL Benzodiazipines: No drugs in class: CN302 (BENZODIAZEPINE DERIVATIVE SEDATIVES/HYPNOTICS) /raiza/ Sindy Wyatt RN [facility], JEmmaP [facility] Signed: 06/25/2024 17:02 Receipt Acknowledged By: 06/25/2024 17:07 /raiza/ Rhonda Ríos, PUBLIC HEALTH PROGRAM MANAGER-CHAVA [place], SINDY PERDOMO [facility] Jun 23, 2024 10:19 AM PRIMARY CARE PROGR ESS NOTE: LOCAL TITLE: PRIMARY CARE CLINIC PROGRESS NOTE PB STANDARD TITLE: PRIMARY CARE PROGRESS NOTE DATE OF NOTE: JUN 23, 2024@10:19 ENTRY DATE: JUN 23, 2024@10:19:05 AUTHOR: RHONDA RÍOS COSIGNER: URGENCY: STATUS: COMPLETED PROVIDER ASSESSMENT DATE & TIME:May@10:19 CHIEF COMPLAINT: Right upper quadrant pain. HISTORY OF PRESENT ILLNESS: [place] is being seen for complaints of feeling nauseated and having fatigue off and on for a week. He did have some right upper quadrant pain but is not having this now. He states he went off of his alpha gal diet and he and his family are moving so they have been eating beef out of the freezer. He states that this could be contributing to his stomach pain. He denies any fever or any other symptoms. 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: 1) Acute posttraumatic stress disorder following combat (SNOMED CT 809885604) 2) Depression (SNOMED CT 34482604) 3) Anxiety (SNOMED CT 97025931) 4) Obstructive sleep apnea syndrome 5) Obstructive sleep apnea (SNOMED CT 06751529) 6) Gastroesophageal Reflux Disease 7) Seasonal allergic rhinitis 8) Ankle pain 9) Alcohol dependence 10) Exposure to potentially hazardous chemical 11) Pain in left leg 12) Chronic sinusitis 13) Tinnitus 14) Exposure to Potentially Hazardous Substance ([facility] [id number]) 15) Allergy to red meat (SNOMED CT 239766923) Active Outpatient Medications (including Supplies): Active Outpatient Medications Status 1) ARIPIPRAZOLE 20MG TAB TAKE ONE-HALF TABLET BY MOUTH AT ACTIVE BEDTIME Indication: FOR MOOD STABILIZATION 2) EPI(EQV-ADRENACLICK)0.3MG/0. [...] TAKE ONE TABLET BY MOUTH THREE ACTIVE TIMES A DAY NEEDED *MAY CAUSE DROWSINESS* [...] Active Non-VA Medications Status 1) Non-VA ACETAMINOPHEN 325/[id number]/CAFN 40MG TAB 1 TO 2 ACTIVE TABLETS BY MOUTH FOUR TIMES A DAY NEEDED 2) Non-VA CHOLECALCIF 50MCG (D3-2,000UNIT) TAB 50MCG BY MOUTH ACTIVE ONCE A DAY 3) Non-VA FLUTICASONE PROP 50MCG 120D NASAL INHL 2 SPRAYS ACTIVE NOSTRIL(S) ONCE A DAY NEEDED 4) Non-VA THIAMINE 100MG TAB 100MG BY MOUTH ONCE A DAY ACTIVE 11 Total Medications REVIEW OF SYSTEMS: HEENT: No Headache. No blurry vision, vision loss, eye pain, red eyes, or foreign body. No runnynose, congestion, or nose bleed. No hearing loss, ringing in the ears, or vertigo. No sore throat or dental pain. RESPIRATORY: No cough, SOA, wheezing, or sputum production. CARDIOVASCULAR: No chest pain, palpitations, tachycardia, PND, or orthopnea. GI: No vomiting, diarrhea, constipation, melena, or hematochezia. positive abdominal pain and nausea. : No dysuria, hematuria, urinary frequency, weak stream, or post-void dribbling. MUSCULOSKELETAL:No muscle or joint pain. SKIN: No rash, lesions, or infection PSYCH: No Depression or Anxiety. Not suicidal. PHYSICAL ASSESSMENT: VITAL SIGNS Pulse: 67 (06/23/2024 09:45) Blood Pressure: 138/85 (06/23/2024 09:45) Respiratory Rate: 18 (06/23/2024 09:45) Temperature: 98 F [36.7 C] (06/23/2024 09:45) Weight: 211 lb [95.71 kg] (06/23/2024 09:45) Height: 73 in [185.4 cm] (05/07/2024 09:19) Pain: 3 (05/15/2024 08:29) HEENT:PERRL, EOMI, Fundi benign, TM's clear, Pharynx not red and without exudate, tonsils normal size. NECK: Supple, no lymhadenopathy, thyroid normal. CARDIAC: Regular rate and rhythm without murmur. No edema. RESPIRATORY: CTA, BEBS GI: Abdomen soft,with ABS, no HSM, no guarding or rebound. MUSCULOSKELETAL:chronic joint pain with no acute change. FROM. SKIN: [place]oe[place] without rash or lesions. NEUROLOGICAL: The is alert and oriented without distress. Affect appropriate. IMPRESSION: Fatigue-current Abdominal Pain-resolved PLAN: Discussed diet. Increase water intake. Discussed viral infection versus diet. Discussed when to return to clinic. Continue current medications. CBC today. Patient is advised this primary care clinic [...] the After Visit Summary was reviewed with ; opportunity provided to report concerns and ask [...] Time spent 30 minutes. /raiza/ [facility] Signed: 06/30/2024 08:36 RHONDA RÍOS [facility] Jun 23, 2024 09:46 AM PRIMARY CARE NURSI NG NOTE: LOCAL TITLE: PRIMARY CARE NURSING PROGRESS NOTE (TEXT) NURSING P STANDARD TITLE: PRIMARY CARE NURSING NOTE DATE OF NOTE: JUN 23, 2024@09:46 ENTRY DATE: JUN 23, 2024@09:49:04 AUTHOR: SINDY WYATT EXP COSIGNER: URGENCY: STATUS: COMPLETED Established Patient NAGA OLMOS IS A 38 YEAR OLD MALE BEING SEEN IN CLINIC JUN 23, 2024. = = REASON FOR VISIT: RUQ Pain x1 week Are you receiving care any where other than the [facility]? No HEALTH AND SURGICAL HISTORY: Does patient report using home oxygen? No CURRENT ACTIVE MEDICATIONS FOR REVIEW: Allergies/ADRs (Tool #5) FACILITY ALLERGY/ADR -------- [facility] Med. Reconciliation (Tool #1) INCLUDED IN THIS LIST: Alphabetical list of active outpatient prescriptions dispensed from this [place] (local) and dispensed from another [place] or DoD facility (remote) as well as inpatient orders (local pending and active), local clinic medications, locally documented non-VA medications, and local prescriptions that have or been discontinued in the past 90 days. Non-VA Meds Last Documented On: Jan 09, 2023 NOTE The display of VA prescriptions dispensed from another [place] or [facility] facility (remote) is limited to active outpatient prescription entries matched to National Drug File at the originating site and may not include some items such as investigational drugs, compounds, etc. NOT INCLUDED IN THIS LIST: Medications self-entered by the patient into personal health records (i.e. [employer]) are NOT included in this list. Non-VA medications documented outside this [facility], remote inpatient orders (regardless of status) and remote clinic medications are NOT included in this list. The patient and provider must always discuss medications the patient is taking, regardless of where the medication was dispensed or obtained. Non-VA ACETAMINOPHEN 325/GPVUYM96/CAFN 40MG TAB TAKE 1 TO 2 TABLETS BY MOUTH FOUR TIMES A DAY NEEDED Patient wants to buy from Non-VA pharmacy. OUTPT ARIPIPRAZOLE 20MG TAB (Status = Discontinued) TAKE ONE-HALF TABLET BY MOUTH AT BEDTIME FOR MOOD STABILIZATION Rx# [id number] Last Released: 03/20/24 Qty/Days Supply: Rx Expiration Date: 01/06/25 Refills Remainin Indication: FOR MOOD STABILIZATION OUTPT ARIPIPRAZOLE 20MG TAB (Status = Active) TAKE ONE-HALF TABLET BY MOUTH AT BEDTIME FOR MOOD STABILIZATION Rx# [id number] Last Released: 06/16/24 Qty/Days Supply: Rx Expiration Date: 05/08/25 Refills Remainin Indication: FOR MOOD STABILIZATION Non-VA CHOLECALCIF 50MCG (D3-2,000UNIT) TAB TAKE ONE TABLET BY MOUTH ONCE A DAY OUTPT EPI(EQV-ADRENACLICK)0.3MG/0. 3ML INJCTR (Status = Active) INJECT 1 PEN (0.3MG/0.3ML) INTRAMUSCULARLY ONE-TIME FOR ALLERGIC REACTION Rx# [id number] Last Released: 11/21/23 Qty/Days Supply: Rx Expiration Date: 11/19/24 Refills Remainin Indication: FOR ALLERGIC REACTION OUTPT FAMOTIDINE 40MG TAB (Status = Active) TAKE ONE TABLET BY MOUTH TWICE A DAY FOR GASTROESOPHAGEAL REFLUX DISEASE Rx# [id number] Last Released: 03/20/24 Qty/Days Supply: 180 Rx Expiration Date: 10/30/24 Refills Remainin Indication: FOR GASTROESOPHAGEAL REFLUX DISEASE Non-VA FLUTICASONE PROP 50MCG 120D NASAL INHL INSTILL 2 SPRAYS IN NOSTRIL(S) ONCE A DAY NEEDED Patient wants to buy from Non-VA pharmacy OUTPT GABAPENTIN 100MG CAP (Status = Active) TAKE ONE CAPSULE BY MOUTH THREE TIMES A DAY NEEDED FOR NERVE PAIN Rx# [id number] Last Released: 03/20/24 Qty/Days Supply: 270 Rx Expiration Date: 10/30/24 Refills Remainin Indication: FOR NERVE PAIN OUTPT HYDROXYZINE HCL 25MG TAB (Status = Discontinued) TAKE ONE TABLET BY MOUTH THREE TIMES A DAY NEEDED FOR ANXIETY *MAY CAUSE DROWSINESS* Rx# [id number] Last Released: Qt Supply: 270 Rx Expiration Date: 03/24/25 Refills Remainin Indication: FOR ANXIETY OUTPT HYDROXYZINE HCL 25MG TAB (Status = Active) TAKE ONE TABLET BY MOUTH THREE TIMES A DAY NEEDED FOR ANXIETY *MAY CAUSE DROWSINESS* Rx# [id number] Last Released: 06/18/24 Qty/Days Supply: 270 Rx Expiration Date: 05/08/25 Refills Remainin Indication: FOR ANXIETY OUTPT PANTOPRAZOLE NA 40MG EC TAB (Status = Active) TAKE ONE TABLET BY MOUTH EVERY MORNING BEFORE A MEAL FOR GASTROESOPHAGEAL REFLUX DISEASE TAKE 30 MINUTES BEFORE MEAL(S) Rx# [id number] Last Released: 03/20/24 Qty/Days Supply: 90 Rx Expiration Date: 10/30/24 Refills Remainin Indication: FOR GASTROESOPHAGEAL REFLUX DISEASE OUTPT PRAZOSIN HCL 2MG CAP (Status = Discontinued) TAKE ONE CAPSULE BY MOUTH AT BEDTIME FOR PTSD MAY CAUSE DIZZINESS OR DROWSINESS. Rx# [id number] Last Released: 01/09/24 Qty/Days Supply: Rx Expiration Date: 01/06/25 Refills Remainin Indication: FOR PTSD OUTPT PRAZOSIN HCL 2MG CAP (Status = Active) TAKE ONE CAPSULE BY MOUTH AT BEDTIME FOR PTSD MAY CAUSE DIZZINESS OR DROWSINESS. Rx# [id number] Last Released: 05/12/24 Qty/Days Supply: Rx Expiration Date: 05/08/25 Refills Remainin Indication: FOR PTSD Non-VA THIAMINE 100MG TAB TAKE ONE TABLET BY MOUTH ONCE A DAY Medication prescribed by Non-VA provider SUPPLIES PHARMACY TERMS AND POSSIBLE PATIENT ACTIONS INPT = HI inpatient order IV = HI intravenous medication OUTPT = HI outpatient prescription PHARMACY POSSIBLE PATIENT TERMS EXPLANATION ACTIONS -------- ---- ACTIVE A prescription that can be If you have refills, filled at the local [place] pharmacy. you may request a refill of this prescription from your HI pharmacy. CLINIC A medication you received during If you have questions a visit to a HI clinic or about this medication emergency department. contact your [place] healthcare team. DISCONTINUED A prescription your provider has Contact your [facility] stopped. It is no longer healthcare team if you available to be sent to you or need more of this picked up at the HI pharmacy medication. window. A prescription which is [...] the VA. Or, it may be an hntc-jup-bwihytw (OTC), herbal, dietary supplements or sample medication. [...] An active prescription that is Contact your [facility] not scheduled to be filled yet. pharmacy [...] report since last visit? NO VITALS: TEMPERATURE: 98 F [36.7 C] (06/23/2024 09:45) BP: 138/85 (06/23/2024 09:45) RESP: 18 (06/23/2024 09:45) PULSE: 67 (06/23/2024 09:45) HT: 73 in [185.4 cm] (05/07/2024 09:19) WT: 211 lb [95.71 kg] (06/23/2024 09:45) BMI: 27.9 PAIN ASSESSMENT: (Most Recent Pain Score in Vitals Package: 3 (05/15/2024 08:29) ) The patient indicated that they and [...] Now let us serve you. At the [facility], we strive to provide you with [...] Not At All SPIRITUAL ASSESSMENT: Are there sikhism practices or spiritual concerns you want the conveyor tender concrete mixing plant, your physician, and other health care team members to immediately know about? No Patient advised to call the clinic for any concerns, questions, or symptoms. Patient and/or caregiver verbalized understanding of plan of care. Suicide Screen - V: C-SSRS Screening [place] Suicide Severity Rating Scale (C-SSRS) screener 1. Over the past month, have you [...] required due to responses to other questions. /raiza/ Sindy Wyatt RN [facility], JP [facility] Signed: 06/23/2024 09:55 SINDY WYATT [place] [facility]
--- OUTSIDE RECORDS SUMMARY | 2024-11-17 04:30 | XMS_ITS | Encounter Summary ---
Author Name [facility] Organization [facility] Address [address] [place] [address] Care Team Providers Care Oncology Research Rn Name Role Phone JUAN JOSÉ PINO Primary Care Provider RHONDA Teresa Primary Care Provider Unavail able Selected Encounter This section includes the information on record at ME for the Encounter. Date/Time Encounter Type Encounter Description Reason Provider Source Nov 17, 2024 09:30 AM OFFICE O/P EST MOD 30 MIN [facility] - IND ICD-10-CM F43.12 Post-traumatic stress disorder, chronic SARIAH DENNIS Blanca Encounter Template Text not used by ME Assessments - Encounter Diagnoses This section includes the primary and secondary diagnoses documented for the Encounter. Date/Time Primary/Secondary Diagnosis Diagnosis Name Provider Source Nov 17, 2024 10:11 AM PRIMARY Post-traumatic stress disorder, chronic [facility] Plan of Treatment: Future Appointments (+ 6 months) and Future Tests (+/- 45 days) The Plan of Treatment section includes future care activities for the patient from all [place] treatmentfacilities. This section includes future appointments and future orders which are active, pending or scheduled. Future Appointments This section includes appointments that were scheduled to occur 6 months from the date of the Encounter, up to a maximum of 20 appointments. The data comes from all ME treatment facilities. Appointment Date/Time Appointment Type Appointme nt Facility Name Nov 19, 2024 11:00 AM AMBULATORY - MEDICINE [facility] Mar 23, 2025 10:00 AM AMBULATORY - MEDICINE [facility] May 04, 2025 10:00 AM AMBULATORY - MEDICINE [facility] Active, Pending, and Scheduled Orders This section includes a listing of several types of active, pending, and scheduled orders, including clinic medications orders, diagnostic test orders, procedure orders and consult orders; where the start date of the order is 45 days before the date of the Encounter or 45 days after the date of theEncounter. The data comes from all ME treatment facilities. Test Date/Time Test Type Test Details Facility Name October 21, 2024 02:44 PM Consult Order [facility] [id number] Cons Line [employer] Engineer[employer] [facility] Vital Signs: All taken on the encounter date This section contains inpatient and outpatient Vital Signs collected on the date of the Encounter. Date/Time Temperature Pulse Blood Pressure Respiratory Rate SP02 Pain Height Weight Body Mass Index Source Nov 17, 2024 09:30 AM 97.8 F 63 /min 136/86 mm[Hg] 20 /min 99 % 0 221.5 lb 29 [facility] Social History: Smoking Status (Most current) and Tobacco Use (All prior to encounter date) This section includes the most current, and the historical, smoking and tobacco- related health factors from the ME facility where the Encounter took place. Current Smoking Status This section includes the most current smoking, or tobacco-related health factor, from the ME facility where the Encounter took place. Date/Time Current Smoking Status Comment Facil ity May 07, 2024 09:00 AM VA-TOBACCO USE FORMER CIGARETTES [facility] Tobacco Use History This section includes a history of the smoking, or tobacco-related health factors, that were collected on or before the date of the Encounter. The data comes from the ME facility where the Encounter took place. Date/Time Smoking Status/Tobacco Use Comment F acility May 07, 2024 09:00 AM VA-TOBACCO USE FORMER CIGARETTES [facility] May 13, 2023 08:30 AM VA-TOBACCO FORMER USER [facility] May 13, 2023 08:30 AM VA-TOBACCO QUIT 5 TO < 15 YRS [facility] May 11, 2022 10:30 AM VA-TOBACCO FORMER USER [facility] May 11, 2022 10:30 AM VA-TOBACCO QUIT 1 TO < 5 YRS [facility] Feb 05, 2018 02:33 PM QUIT TOBACCO >12 MO & <7 YRS AGO [facility] Aug 21, 2017 10:24 AM QUIT TOBACCO >12 MO & <7 YRS AGO [facility] Mar 12, 2016 06:56 AM QUIT TOBACCO >12 MO & <7 YRS AGO [facility] Advance Directives: All historical and current Section Date Range: From patient's date of to the date document was created. This section includes ALL of a patient's completed or amended ME Advance and Rescinded Directives. The entries below indicate that a directive exists for the patient, but an actual copy is not included with this document. The data comes from all ME facilities. Date Advance Directives Provider Source Sep 10, 2018 ADVANCE DIRECTIVE KISHA AGEE AR VANPH May 05, 2018 ADVANCE DIRECTIVE KITTY VALDERRAMA RICKI [facility] October 16, 2010 ADVANCE DIRECTIVE DISCUSSION SIRENA FORREST [facility] Encounter Notes: All associated encounter notes This section contains the clinical notes associated to the Encounter. Date/Time Encounter Note(s) Provider Source Nov 17, 2024 10:00 AM PSYCHIATRY NOTE: LOCAL TITLE: PSYCHIATRIC PROGRESS NOTE STANDARD TITLE: PSYCHIATRY NOTE DATE OF NOTE: NOV 17, 2024@10:00 ENTRY DATE: NOV 17, 2024@10:15:26 AUTHOR: SARIAH DENNIS COSIGNER: URGENCY: STATUS: COMPLETED CC: good HPI: [...] posttraumatic stress disorder following combat (SNOMED CT 341210668) 2) Depression (SNOMED CT 15092790) 3) Anxiety (SNOMED CT 00519231) 4) Obstructive sleep apnea syndrome 5) Obstructive sleep apnea (SNOMED CT 38602328) 6) Gastroesophageal Reflux Disease 7) Seasonal allergic rhinitis 8) Ankle pain 9) Alcohol dependence 10) Exposure to potentially hazardous chemical 11) Pain in left leg comment: Trauma with L. hip pain, leg pain, and intermittent tremor LLE du 12) Chronic sinusitis 13) Tinnitus 14) Exposure to Potentially Hazardous Substance ([facility] [id number]) 15) Allergy to red meat (SNOMED CT 530584044) MEDICATIONS: reviewed Active and Recently Outpatient Medications (including Supplies): Active Outpatient Medications Status 1) ARIPIPRAZOLE 20MG TAB TAKE ONE-HALF TABLET BY MOUTH AT ACTIVE BEDTIME Indication: FOR MOOD STABILIZATION 2) EPI(EQV-ADRENACLICK)0.3MG/0.3 ML INJCTR INJECT 1 PEN ACTIVE (0.3MG/0.3ML) INTRAMUSCULARLY ONE-TIME Indication: FOR ALLERGIC REACTION 3) FLUTICASONE PROP 50MCG 120D NASAL INHL INSTILL 1 SPRAY IN ACTIVE NOSTRIL(S) ONCE A DAY (MUST BE USED DIRECTED FOR MINIMUM OF 21 DAYS TO PROVIDE ADEQUATE BENEFITS) Indication: FOR RHINITIS 4) HYDROXYZINE HCL 25MG TAB TAKE ONE TABLET BY MOUTH THREE ACTIVE TIMES A DAY NEEDED *MAY CAUSE DROWSINESS* Indication: FOR ANXIETY 5) PRAZOSIN HCL 2MG CAP TAKE ONE CAPSULE BY MOUTH AT BEDTIME ACTIVE MAY CAUSE DIZZINESS OR DROWSINESS. Indication: FOR PTSD Pending Outpatient Medications Status 1) ARIPIPRAZOLE 20MG TAB TAKE ONE-HALF TABLET BY MOUTH AT PENDING BEDTIME Indication: FOR MOOD STABILIZATION 2) HYDROXYZINE HCL 25MG TAB TAKE ONE TABLET BY MOUTH THREE PENDING TIMES A DAY NEEDED *MAY CAUSE DROWSINESS* Indication: FOR ANXIETY 3) PRAZOSIN HCL 2MG CAP TAKE ONE CAPSULE BY MOUTH AT BEDTIME PENDING MAY CAUSE DIZZINESS OR DROWSINESS. Indication: FOR PTSD Inactive Outpatient Medications Status 1) FAMOTIDINE 40MG TAB TAKE ONE TABLET BY MOUTH TWICE A DAY Indication: FOR GASTROESOPHAGEAL REFLUX DISEASE 2) GABAPENTIN 100MG CAP TAKE ONE CAPSULE BY MOUTH THREE TIMES A DAY NEEDED Indication: FOR NERVE PAIN 3) PANTOPRAZOLE NA 40MG EC TAB TAKE ONE TABLET BY MOUTH EVERY MORNING BEFORE A MEAL TAKE 30 MINUTES BEFORE MEAL(S) Indication: FOR GASTROESOPHAGEAL REFLUX DISEASE Active Non-VA Medications Status 1) Non-VA ACETAMINOPHEN 325/UMTHUI09/CAFN 40MG TAB 1 TO 2 ACTIVE TABLETS BY MOUTH FOUR TIMES A DAY NEEDED 2) Non-VA CHOLECALCIF 50MCG (D3-2,000UNIT) TAB 50MCG BY MOUTH ACTIVE ONCE A DAY 3) Non-VA FLUTICASONE PROP 50MCG 120D NASAL INHL 2 SPRAYS ACTIVE NOSTRIL(S) ONCE A DAY NEEDED 4) Non-VA THIAMINE 100MG TAB 100MG BY MOUTH ONCE A DAY ACTIVE 15 Total Medications I have reviewed current medications w/ [place] at this visit. Medication list and allergy list has been updated. Efficacy and side effects of the medications were reviewed and the [place] was provided a current medication list. denies questions, concerns, or problems with medications. O: reviewed Patient Weight History - Last Four 1. 221.5 lbs. / 100.5 kg. on NOV 17, 2024@09:30 2. 211.0 lbs. / 95.7 kg. on JUN 23, 2024@09:45:52 3. 209.9 lbs. / 95.2 kg. on MAY 15, 2024@08:29 4. 205.2 lbs. / 93.1 kg. on MAY 07, 2024@09:19:52 BMI: 29.3 Vitals (Per CPRS data): Temperature: 97.8 F [36.6 C] (11/17/2024 09:30) Blood Pressure: 136/86 (11/17/2024 09:30) Pulse: 63 (11/17/2024 09:30) Respirations: 20 (11/17/2024 09:30) MENTAL STATUS EXAM: Appearance and Behavior: The [...] year, and situation Memory: Immediate Recall: intact Kkefh-ku-nebl-minute recall: intact Attention and Concentration: good Language: Naming common objects: intact Repeating phrases: intact Fund of knowledge: Current events awareness: good Vocabulary: good Mood and Affect: Mood: good Affect: euthymic, restricted range Therapy provided in addition to e&m visit: Time spent in therapy: 16 minutes Total visit time: 30 minutes Modality: Supportive Psychotherapy Goals: Reduce overall frequency, intensity, and duration of the anxiety so daily functioning is not impaired. Focus: Learn and implement coping skills that result in a reduction of anxiety and improved daily functioning. Recent labs: No COMPREHENSIVE METABOLIC PANEL data found No CBC EO data found No HGA1C data found No LIPID PANEL EO data found No TSH data found URINE COLOR Light Yellow 04/07/2024 10:01 APPEARANCE CLEAR 04/07/2024 10:01 U.PH 6.5 04/07/2024 10:01 U.BILIRUBIN NEGATIVE mg/dL 04/07/2024 10:01 U.NITRITE NEGATIVE mg/dL 04/07/2024 10:01 No URINE DRUG SCREEN EO data found Assessment: Patient is a 38yo man with PTSD that is well-controlled with current treatment plan. Patient is a low acute and low chronic suicide risk based on risk assessment and can safely be managed on an outpatient basis. Diagnosis: Post-traumatic stress disorder, chronic Plan: 1. Continue medications 2. RTC 6 [...] procedures were reviewed including 988,sucide prevention lifeline(1- [phone]). advised to return to ER or come in as walk-in to the clinic, should they experience any crisis. [place] had an opportunity to ask questions and agreed with the treatment plan. The was instructed to contact mental health (or primary care clinic) with any problems or concerns. /es/ SARIAH Eastonhing [facility] Signed: 11/17/2024 13:22 SARIAH DENNIS [facility] Nov 17, 2024 10:00 AM PRIMARY CARE EDUCA TION NOTE: LOCAL TITLE: OPT PHY INSTR AUTO PB STANDARD TITLE: PRIMARY CARE EDUCATION NOTE DATE OF NOTE: NOV 17, 2024@10:00 ENTRY DATE: NOV 17, 2024@10:12:16 AUTHOR: SARIAH DENNIS EXP COSIGNER: URGENCY: STATUS: COMPLETED This documentation is related to: . F/U Visit Description of Today's Injury/Illness: MH MED MGMT Mental Health Testing: RETURN TO CLINIC: Return appointment is needed. . Special Instructions: . None. MEDICATION REVIEW/ASSESSMENT & PLAN: 1. Continue medications 2. RTC 6 months Allergies/ADRs (Tool #5) FACILITY ALLERGY/ADR -------- [facility] Med. Reconciliation (Tool #1) INCLUDED IN THIS LIST: Alphabetical list of active outpatient prescriptions dispensed from this ME (local) and dispensed from another ME or DoD facility (remote) as well as inpatient orders (local pending and active), local clinic medications, locally documented non-VA medications, and local prescriptions that have or been discontinued in the past 90 days. Non-VA Meds Last Documented On: Jan 09, 2023 NOTE The display of VA prescriptions dispensed from another VA or DoD facility (remote) is limited to active outpatient prescription entries matched to National Drug File at the originating site and may not include some items such as investigational drugs, compounds, etc. NOT INCLUDED IN THIS LIST: Medications self-entered by the patient into personal health records (i.e. [employer]) are NOT included in this list. Non-VA medications documented outside this ME, remote inpatient orders (regardless of status) and remote clinic medications are NOT included in this list. The patient and provider must always discuss medications the patient is taking, regardless of where the medication was dispensed or obtained. Non-VA ACETAMINOPHEN 325/OWQXEU42/CAFN 40MG TAB TAKE 1 TO 2 TABLETS BY MOUTH FOUR TIMES A DAY NEEDED Patient wants to buy from Non-ME pharmacy. OUTPT ARIPIPRAZOLE 20MG TAB (Status = Active) TAKE ONE-HALF TABLET BY MOUTH AT BEDTIME FOR MOOD STABILIZATION Rx# [id number] Last Released: 06/16/24 Qty/Days Supply: 45 Rx Expiration Date: 05/08/25 Refills Remainin Indication: FOR MOOD STABILIZATION Non-VA CHOLECALCIF 50MCG (D3-2,000UNIT) TAB TAKE ONE TABLET BY MOUTH ONCE A DAY OUTPT EPI(EQV-ADRENACLICK)0.3MG/0.3 ML INJCTR (Status = Active) INJECT 1 PEN (0.3MG/0.3ML) INTRAMUSCULARLY ONE-TIME FOR ALLERGIC REACTION Rx# [id number] Last Released: 11/21/23 Qty/Days Supply: Rx Expiration Date: 11/19/24 Refills Remainin Indication: FOR ALLERGIC REACTION OUTPT FAMOTIDINE 40MG TAB (Status = ) TAKE ONE TABLET BY MOUTH TWICE A DAY FOR GASTROESOPHAGEAL REFLUX DISEASE Rx# [id number] Last Released: 03/20/24 Qty/Days Supply: 180 Rx Expiration Date: 10/30/24 Refills Remainin Indication: FOR GASTROESOPHAGEAL REFLUX DISEASE Non-VA FLUTICASONE PROP 50MCG 120D NASAL INHL INSTILL 2 SPRAYS IN NOSTRIL(S) ONCE A DAY NEEDED Patient wants to buy from Non-ME pharmacy OUTPT FLUTICASONE PROP 50MCG 120D NASAL INHL (Status = Active) INSTILL 1 SPRAY IN NOSTRIL(S) ONCE A DAY FOR RHINITIS (MUST BE USED DIRECTED FOR MINIMUM OF 21 DAYS TO PROVIDE ADEQUATE BENEFITS) Rx# [id number] Last Released: 06/29/24 Qty/Days Supply: Rx Expiration Date: 06/26/25 Refills Remainin Indication: FOR RHINITIS OUTPT GABAPENTIN 100MG CAP (Status = ) TAKE ONE CAPSULE BY MOUTH THREE TIMES A DAY NEEDED FOR NERVE PAIN Rx# [id number] Last Released: 03/20/24 Qty/Days Supply: 270 Rx Expiration Date: 10/30/24 Refills Remainin Indication: FOR NERVE PAIN OUTPT HYDROXYZINE HCL 25MG TAB (Status = Active) TAKE ONE TABLET BY MOUTH THREE TIMES A DAY NEEDED FOR ANXIETY *MAY CAUSE DROWSINESS* Rx# [id number] Last Released: 06/18/24 Qty/Days Supply: 270 Rx Expiration Date: 05/08/25 Refills Remainin Indication: FOR ANXIETY OUTPT PANTOPRAZOLE NA 40MG EC TAB (Status = ) TAKE ONE TABLET BY MOUTH EVERY MORNING BEFORE A MEAL FOR GASTROESOPHAGEAL REFLUX DISEASE TAKE 30 MINUTES BEFORE MEAL(S) Rx# [id number] Last Released: 03/20/24 Qty/Days Supply: Rx Expiration Date: 10/30/24 Refills Remainin Indication: FOR GASTROESOPHAGEAL REFLUX DISEASE OUTPT PRAZOSIN HCL 2MG CAP (Status = Active) TAKE ONE CAPSULE BY MOUTH AT BEDTIME FOR PTSD MAY CAUSE DIZZINESS OR DROWSINESS. Rx# [id number] Last Released: 05/12/24 Qty/Days Supply: Rx Expiration Date: 05/08/25 Refills Remainin Indication: FOR PTSD Non-VA THIAMINE 100MG TAB TAKE ONE TABLET BY MOUTH ONCE A DAY Medication prescribed by Non-VA provider SUPPLIES PHARMACY TERMS AND POSSIBLE PATIENT ACTIONS INPT = ME inpatient order IV = ME intravenous medication OUTPT = ME outpatient prescription PHARMACY POSSIBLE PATIENT TERMS EXPLANATION ACTIONS -------- --- ACTIVE A prescription that can be If you have refills, filled at the local VA pharmacy. you may request a refill of [...] more of this picked up at the VA pharmacy medication. window. A prescription which is [...] the VA. Or, it may be an akvh-pbq-hrqjbnw (OTC), herbal, dietary supplements or sample medication. [...] before this medication now. you run out. ======== Medication reconciliation performed with confirmed /caregiver and /caregiver voiced an understanding of current medications? Yes [place]/caregiver were provided an updated medication list. Following results reviewed and discussed with patient: None Future Appointments: 11/19/2024 11:00 SOULEYMANE HAIDER NP 03/23/2025 10:00 PB-ANTHONY PACT [employer] CONS[employer] [facility] 05/04/2025 10:00 PB-ANTHONY IND BH PSI BRASS /es/ SARIAH Bazzi [facility] Signed: 11/17/2024 10:13 [facility] Nov 17, 2024 09:54 AM NURSING NOTE: LOCAL TITLE: PCMHI/BHIP NURSING EXIT NOTE PB STANDARD TITLE: NURSING NOTE DATE OF NOTE: NOV 17, 2024@09:54 ENTRY DATE: NOV 17, 2024@09:54:22 AUTHOR: ABRAHAM MARIA EXP COSIGNER: URGENCY: STATUS: COMPLETED EXIT INTERVIEW Location: [facility] Ambulatory Appointment Reviewed: Instructions: CLINIC: Sent to Pharmacy for medications and instructions: Lab Instructions: Special Instructions: Verbalized understanding of today's visit: Patient Is patient's pain under control at time of exit? Yes Discussed walk-in and after-hour services. [place] verbalized understanding. Encouraged to seek treatment if change in status. Contact information and hours of operation given. voiced no questions or concerns and was escorted to the [facility] in satisfactory condition, scheduling for his next appt. /raiza/ MARCO A GAONA, RN CB Signed: 11/17/2024 09:55 ABRAHAM MARIA [facility] Nov 17, 2024 09:28 AM NURSING PROGRESS N OTE: LOCAL TITLE: NURSING NOTE PB STANDARD TITLE: NURSING PROGRESS NOTE DATE OF NOTE: NOV 17, 2024@09:28 ENTRY DATE: NOV 17, 2024@09:28:50 AUTHOR: ABRAHAM MARIA EXP COSIGNER: URGENCY: STATUS: COMPLETED Maciej is here for his scheduled F2F psychiatry appt. He is alert and oriented, resps even and unlabored, gait steady. Maciej is pleasant and conversational, states he has been doing good. [place], had a good time, but got a sun burn. Informed him he could get some OTC after sun that has lidocaine in it for the pain. Maciej has several white spots on his legs, the left leg is worse. he noticed these about 6 months, he has a pcp appt on and will discuss it with her then. Active Outpatient Medications: Active Outpatient Medications (including Supplies): Active Outpatient Medications Status 1) ARIPIPRAZOLE 20MG TAB TAKE ONE-HALF TABLET BY MOUTH AT ACTIVE BEDTIME Indication: FOR MOOD STABILIZATION 2) EPI(EQV-ADRENACLICK)0.3MG/0.3 ML INJCTR INJECT 1 PEN ACTIVE (0.3MG/0.3ML) INTRAMUSCULARLY ONE-TIME Indication: FOR ALLERGIC REACTION 3) FLUTICASONE PROP 50MCG 120D NASAL INHL INSTILL 1 SPRAY IN ACTIVE NOSTRIL(S) ONCE A DAY (MUST BE USED DIRECTED FOR MINIMUM OF 21 DAYS TO PROVIDE ADEQUATE BENEFITS) Indication: FOR RHINITIS 4) HYDROXYZINE HCL 25MG TAB TAKE ONE TABLET BY MOUTH THREE ACTIVE TIMES A DAY NEEDED *MAY CAUSE DROWSINESS* Indication: FOR ANXIETY 5) PRAZOSIN HCL 2MG CAP TAKE ONE CAPSULE BY MOUTH AT BEDTIME ACTIVE MAY CAUSE DIZZINESS OR DROWSINESS. Indication: FOR PTSD Active Non-VA Medications Status 1) Non-VA ACETAMINOPHEN 325/ZANJFK55/CAFN 40MG TAB 1 TO 2 ACTIVE TABLETS BY MOUTH FOUR TIMES A DAY NEEDED 2) Non-VA CHOLECALCIF 50MCG (D3-2,000UNIT) TAB 50MCG BY MOUTH ACTIVE ONCE A DAY 3) Non-VA FLUTICASONE PROP 50MCG 120D NASAL INHL 2 SPRAYS ACTIVE NOSTRIL(S) ONCE A DAY NEEDED 4) Non-VA THIAMINE 100MG TAB 100MG BY MOUTH ONCE A DAY ACTIVE states he is taking the above meds as prescribed. He denies any change in side effects with prazosin, hydroxyzine or aripiprazole and they are effective. Sexual Orientation - CP,L,N,P,PH,PS,S,U: The patient thinks of their sexual orientation as: Straight or Heterosexual RHS Screen - VS: RHS Screen Session Format: Face to Face Environmental Check Upon inquiry, the individual reports that the environment is safe to proceed. Informed Consent to Screen and Document The individual consents to proceed with screening. The individual consents to documentation of responses. PRIMARY SCREEN: In the past 12 months, how often did a current or former intimate partner (e.g., boyfriend, girlfriend, , , sexual partner): 1. Scream or curse at you Rarely 2. Insult or talk down to you Never 3. Threaten you with harm Never 4. Physically hurt you Never 5. Force or pressure you to have sexual contact against your will, or when you were unable to say no Never The HITS tool (items 1-4 above) is US copyright protected by Oziel Edward MD, and the user has full rights to use it throughout the ME system. PRIMARY SCREEN RESULT: The Primary Screen is POSITIVE. The individual reported a response besides never to at least 1 of the 5 items SECONDARY SCREEN: Has the IPV behavior increased in frequency/severity in the past 6 months? No Has your partner ever choked or strangled you? No Do you believe your partner may kill you? No SECONDARY SCREEN RESULTS: The Secondary Risk Screen is NEGATIVE (i.e., answered no to all 3 items above) RESOLUTION: Individual declines consult or referral The individual accepts education and/or resources: Other: denies need, states they are occasionally have disagreements EDUCATION: Other: denies need Homelessness/Food Insecurity Screen - DI,L,N,P,PH,PS,S,U: In the past 2 months, have you been living in stable housing that you own, rent, or stay in as part of a household? Yes - Living in stable housing. Are you worried or concerned that in the next 2 months you may NOT have stable housing that you own, rent, or stay in as part of a household? No - Not worried about housing near future The [place] reports the following: Within the past 12 months, you worried whether your food would run out before you got money to buy more. Never true Within the past 12 months, the food you bought just didn't last and you didn't have money to get more. Never true Depression Monitoring (PHQ-9) - M,N,P,PH,PS,R,S,T: PHQ-9 A PHQ-9 screen was performed. The score was 15. 1. Little interest or pleasure in doing things Several days 2. Feeling down, depressed, or hopeless Not at all 3. Trouble falling or staying asleep, or sleeping too much Nearly every day 4. Feeling tired or having little energy More than half the days 5. Poor appetite or overeating Not at all 6. Feeling bad about yourself or that you are a failure or have let yourself or your family down Nearly every day 7. Trouble concentrating on things, such as reading the newspaper or watching television Nearly every day 8. Moving or speaking so slowly that other people could have noticed. Or the opposite being so fidgety or restless that you have been moving around a lot more than usual Nearly every day 9. Thoughts that you would be better off or of hurting yourself in some way Not at all 10. If you checked off any problems, how DIFFICULT have these problems made it for you to do your work, take care of things at home or get along with other people? Very difficult had no previous PHQ-9 score to compare to current score to gauge improvement Interprofessional Communication: Other Communication: has scheduled appt with Dr Dennis Pain Assessment: - PAIN ASSESSMENT: .. Patient is reporting some pain. PAIN SCORE TODAY: sore from a sun burn Patient's self-identified pain goal: 0 was escorted to room 122 for his appt with Dr Dennis. /raiza/ MARCO A GAONA, RN [facility] Signed: 11/17/2024 09:54 ABRAHAM MARIA [facility]
--- OUTSIDE RECORDS SUMMARY | 2024-11-19 06:00 | XMS_ITS | Encounter Summary ---
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 Date/Time Encounter Type Encounter Description Reason Provider Source Nov 19, 2024 11:00 AM OFFICE O/P EST LOW 20 MIN PRIMARY CARE/MEDICINE ICD-10-CM M54.50 Low back pain, unspecified SARI RÍOS INE R IHE Encounter Template Text not used by [place] Assessments - Encounter Diagnoses This section includes the primary and secondary diagnoses documented for the Encounter. Date/Time Primary/Secondary Diagnosis Diagnosis Name Provider Source Nov 19, 2024 11:49 AM PRIMARY Low back pain, unspecified MARILIN RÍOS NE R [facility] Plan of Treatment: Future Appointments (+ 6 months) and Future Tests (+/- 45 days) The Plan of Treatment section includes future care activities for the patient from all [place] treatmentfacilities. This section includes future appointments and future orders which are active, pending or scheduled. Future Appointments This section includes appointments that were scheduled to occur 6 months from the date of the Encounter, up to a maximum of 20 appointments. The data comes from all [place] treatment facilities. Appointment Date/Time Appointment Type Appointme nt Facility Name Mar 23, 2025 10:00 AM AMBULATORY - MEDICINE [facility] May 04, 2025 10:00 AM AMBULATORY - MEDICINE [facility] Active, Pending, and Scheduled Orders This section includes a listing of several types of active, pending, and scheduled orders, including clinic medications orders, diagnostic test orders, procedure orders and consult orders; where the start date of the order is 45 days before the date of the Encounter or 45 days after the date of theEncounter. The data comes from all [place] treatment facilities. Test Date/Time Test Type Test Details Facility Name October 21, 2024 02:44 PM Consult Order [facility] [id number] Cons Acrobatic Rigger's Choice [facility] Vital Signs: All taken on the encounter date This section contains inpatient and outpatient Vital Signs collected on the date of the Encounter. Date/Time Temperature Pulse Blood Pressure Respiratory Rate SP02 Pain Height Weight Body Mass Index Source Nov 19, 2024 11:08 AM 57 /min 134/74 mm[Hg] 16 /min 99 % 4 73.0 in 224.3 lb 30 [facility] Social History: Smoking Status (Most current) and Tobacco Use (All prior to encounter date) This section includes the most current, and the historical, smoking and tobacco- related health factors from the [place] facility where the Encounter took place. Current Smoking Status This section includes the most current smoking, or tobacco-related health factor, from the [place] facility where the Encounter took place. Date/Time Current Smoking Status Comment Facil ity May 07, 2024 09:00 AM VA-TOBACCO USE FORMER CIGARETTES [facility] Tobacco Use History This section includes a history of the smoking, or tobacco-related health factors, that were collected on or before the date of the Encounter. The data comes from the [place] facility where the Encounter took place. Date/Time Smoking Status/Tobacco Use Comment F acility May 07, 2024 09:00 AM VA-TOBACCO USE FORMER CIGARETTES [facility] May 13, 2023 08:30 AM VA-TOBACCO FORMER USER [facility] May 13, 2023 08:30 AM VA-TOBACCO QUIT 5 TO < 15 YRS [facility] May 11, 2022 10:30 AM VA-TOBACCO FORMER USER [facility] May 11, 2022 10:30 AM VA-TOBACCO QUIT 1 TO < 5 YRS [facility] Feb 05, 2018 02:33 PM QUIT TOBACCO >12 MO & <7 YRS AGO [facility] Aug 21, 2017 10:24 AM QUIT TOBACCO >12 MO & <7 YRS AGO [facility] Mar 12, 2016 06:56 AM QUIT TOBACCO >12 MO & <7 YRS AGO [facility] Advance Directives: All historical and current Section Date Range: From patient's date of to the date document was created. This section includes ALL of a patient's completed or amended [place] Advance and Rescinded Directives. The entries below indicate that a directive exists for the patient, but an actual copy is not included with this document. The data comes from all [place] facilities. Date Advance Directives Provider Source Sep 10, 2018 ADVANCE DIRECTIVE KISHA AGEE AR VANPH May 05, 2018 ADVANCE DIRECTIVE KITTY VALDERRAMA RICKI FF [facility] October 16, 2010 ADVANCE DIRECTIVE DISCUSSION SIRENA FORREST [facility] Encounter Notes: All associated encounter notes This section contains the clinical notes associated to the Encounter. Date/Time Encounter Note(s) Provider Source Nov 19, 2024 11:21 AM PRIMARY CARE PROGR ESS NOTE: LOCAL TITLE: PRIMARY CARE CLINIC PROGRESS NOTE PB STANDARD TITLE: PRIMARY CARE PROGRESS NOTE DATE OF NOTE: NOV 19, 2024@11:21 ENTRY DATE: NOV 19, 2024@11:22:01 AUTHOR: RHONDA RÍOS COSIGNER: URGENCY: STATUS: COMPLETED PROVIDER ASSESSMENT DATE & TIME:Oct@11:22 CHIEF COMPLAINT: Low back pain. HISTORY OF PRESENT ILLNESS: is being seen for low back pain. [place] states he would like his chiropractic consult reinstated so that he can see the massage therapist. [place] is informed that his chiropractic consult is current and that they would have to refer him to massage therapy. According to the consult they have been trying to reach him. He is instructed to contact [facility] for an appt. He denies any other needs. 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: 1) Acute posttraumatic stress disorder following combat (SNOMED CT 598893268) 2) Depression (SNOMED CT 82172370) 3) Anxiety (SNOMED CT 43333202) 4) Obstructive sleep apnea syndrome 5) Obstructive sleep apnea (SNOMED CT 17951110) 6) Gastroesophageal Reflux Disease 7) Seasonal allergic rhinitis 8) Ankle pain 9) Alcohol dependence 10) Exposure to potentially hazardous chemical 11) Pain in left leg 12) Chronic sinusitis 13) Tinnitus 14) Exposure to Potentially Hazardous Substance ([facility] [id number]) 15) Allergy to red meat (SNOMED CT 877444986) Active Outpatient Medications (including Supplies): Active Outpatient [...] Active Non-VA Medications Status 1) Non-VA ACETAMINOPHEN 325/EFIJDT25/CAFN 40MG TAB 1 TO 2 ACTIVE TABLETS BY MOUTH FOUR TIMES A DAY NEEDED 2) Non-VA CHOLECALCIF 50MCG (D3-2,000UNIT) TAB 50MCG BY MOUTH ACTIVE ONCE A DAY 3) Non-VA FLUTICASONE PROP 50MCG 120D NASAL INHL 2 SPRAYS ACTIVE NOSTRIL(S) ONCE A DAY NEEDED 4) Non-VA THIAMINE 100MG TAB 100MG BY MOUTH ONCE A DAY ACTIVE 9 Total Medications REVIEW OF SYSTEMS: MUSCULOSKELETAL:Low back pain. SKIN: No rash, lesions, or infection PSYCH: No Depression or Anxiety. Not suicidal. PHYSICAL ASSESSMENT: VITAL SIGNS Pulse: 57 (11/19/2024 11:08) Blood Pressure: 134/74 (11/19/2024 11:08) Respiratory Rate: 16 (11/19/2024 11:08) Temperature: 97.8 F [36.6 C] (11/17/2024 09:30) Weight: 224.3 lb [101.74 kg] (11/19/2024 11:08) Height: 73.0 in [185.4 cm] (11/19/2024 11:08) Pain: 4 (11/19/2024 11:08) MUSCULOSKELETAL:Low back pain with no acute change. Mild limp with gait. SKIN: [place] without rash or lesions. NEUROLOGICAL: The [place] is alert and oriented without distress. Affect appropriate. IMPRESSION: Low Back Pain-current PLAN: Veterans consult to chiropractic is current and he is provided the number for access. He will contact [facility] for an appt. No other concerns voiced. RTC as needed. Discussed how to access massage therapy. Patient is advised this primary care clinic [...] the After Visit Summary was reviewed with [place]; opportunity provided to report concerns and ask [...] 30 minutes. /raiza/ MARK [facility] Signed: 11/19/2024 11:48 RHONDA RÍOS
--- OUTSIDE RECORDS SUMMARY | 2024-11-28 13:43 | XMS_ITS | Continuity of Care Document ---
Author Name [facility] Organization [facility] Care Team Providers Care Bin Packer Name Role Phone [facility] Unavailable Unavailable Problems Combined list of problems from Department of Defense and Veterans Affairs facilities. It does not include entries that were removed or entered in error. Problem Status Onset Date Problem Type Date of Resolution Comments Source Acute posttraumatic stress disorder following combat (SNOMED CT 918338353) Active Condition [facility] Alcohol dependence Active Condition [facility] [place] Allergic rhinitis Active Condition [facility] Allergy to red meat (SNOMED CT 393241411) Active Condition [facility] Ankle pain Active Condition [facility] Anxiety (SNOMED CT 24033108) Active Condition [facility] Cannabis dependence in remission Active Condition [facility] Chronic migraine without aura Active Condition [facility] Chronic post-traumatic stress disorder Active Condition [facility] Chronic sinusitis Active Condition [facility] Depression (SNOMED CT 04592684) Active Condition [facility] Exposure to potentially hazardous chemical Active Condition [facility] Exposure to Potentially Hazardous Substance ([facility] 188735672011505) Active Condition [facility] Gastro-esophageal reflux Active Condition [facility] Gastroesophageal Reflux Disease Active Condition [facility] Low back pain [facility] Nicotine dependence Active Condition [facility] Obstructive sleep apnea (SNOMED CT 22588502) Active Condition [facility] Obstructive sleep apnea syndrome Active Condition [facility] Pain in left leg Active Condition Jan 30, 2023 Entered By: WYATT RUGGIERO RD Comment: Trauma with L. hip pain, leg pain, and intermittent tremor LLE due to injury. [facility] Seasonal allergic rhinitis Active Condition [facility] Tinnitus Active Condition [facility] Ankle pain (SNOMED CT 312448739) Inactive Condition 07/10/2013 [facility] Attention-deficit hyperactivity disorder * Inactive Condition 07/10/2013 [facility] Central hearing loss (SNOMED CT 75515107) Inactive Condition 07/10/2013 [facility] Encounters for other Specified Administrative Purpose (ICD-9-CM V68.89) Inactive Condition 07/10/2013 [facility] Health Maintenance (ICD-9-CM V65.9) Inactive Condition 01/14/2014 [facility] Hip Pain Inactive Condition 07/10/2013 [facility] Knee pain (SNOMED CT 99430104) Inactive Condition 07/10/2013 [facility] Knowledge Deficit * (ICD-9-CM V62.3) Inactive Condition 07/10/2013 [facility] Legal problems/circumstan brenda Inactive Condition 07/10/2013 [facility] Other General Medical Examination for Administrative Purposes Inactive Condition 01/14/2014 [facility] Other Unspecified Counseling Inactive Condition 07/10/2013 [facility] Smoker (SNOMED CT 59396654) Inactive Condition 07/10/2013 [facility] Tinnitus (SNOMED CT 10296062) Inactive Condition 03/17/2023 [facility] Unspecified site of sprain and strain (ICD-9-CM 848.9) Inactive Condition 07/10/2013 [facility] Upper Respiratory Infections (ICD-9-CM 465.9) Inactive Condition 07/10/2013 [facility] [place] Diagnosis: ICD-10-CM M54.50 Low back pain, unspecified Active Diagnosis [facility] Diagnosis: ICD-10-CM F43.12 Post-traumatic stress disorder, chronic Active Diagnosis [facility] Diagnosis: ICD-10-CM R10.84 Generalized abdominal pain Active Diagnosis [facility] Diagnosis: ICD-10-CM M25.532 Pain in left wrist Active Diagnosis [facility] Diagnosis: ICD-10-CM R09.81 Nasal congestion Active Diagnosis [facility] Diagnosis: ICD-10-CM K05.321 Chronic periodontitis, generalized, slight Active Diagnosis [place] [facility] Diagnosis: ICD-10-CM Z00.00 Encntr for general adult medical exam w/o abnormal findings Active Diagnosis [facility] Diagnosis: ICD-10-CM Z91.014 Allergy to mammalian meats Active Diagnosis [facility] Diagnosis: ICD-10-CM F41.9 Anxiety disorder, unspecified Active Diagnosis [facility] Diagnosis: ICD-10-CM Z71.9 Counseling, unspecified Active Diagnosis [facility] Diagnosis: ICD-10-CM K21.9 Gastro-esophageal reflux disease without esophagitis Active Diagnosis [facility] Diagnosis: ICD-10-CM K21.00 Gastro-esophageal reflux dis with esophagitis, without bleed Active Diagnosis [facility] Diagnosis: ICD-10-CM H52.223 Regular astigmatism, bilateral Active Diagnosis [place] [facility] Diagnosis: ICD-10-CM M77.12 Lateral epicondylitis, left elbow Active Diagnosis [facility] Diagnosis: ICD-10-CM J32.9 Chronic sinusitis, unspecified Active Diagnosis [facility] Medications Combined list of outpatient medications from Department of Defense and Veterans Affairs facilities.Medications provided include 1) outpatient medications from the last 15 months, and 2) patient-reported medications. Medication Details Route Status Patient Instructions Prescription Expires Prescription Number Last Dispense Date Ordering Provider Order Date Order Qty Source APAP 325MG/BUTAL BITAL 50MG/CAFN 40MG TAB TAKE 1 TO 2 TABLETS BY MOUTH FOUR TIMES A DAY NEEDED ORAL ACTIVE OLMAN RUGGIERO 2017 [facility] ARIPIPRAZOL E 20MG TAB TAKE ONE-HALF TABLET BY MOUTH AT BEDTIME FOR MOOD STABILIZ ATION ORAL ACTIVE 11/18/2025 [id number] 5 OLINDA EMERSON 2024 45 [facility] ARIPIPRAZOL E 20MG TAB TAKE ONE-HALF TABLET BY MOUTH AT BEDTIME FOR MOOD STABILIZ ATION ORAL DISCONT INUED 05/08/2025 [id number] 5 OLINDA EMERSON 2024 45 [facility] ARIPIPRAZOL E 20MG TAB TAKE ONE-HALF TABLET BY MOUTH AT BEDTIME FOR MOOD STABILIZ ATION ORAL DISCONT INUED 01/06/2025 [id number] 4 OLINDA EMERSON R 2023 45 [facility] ARIPIPRAZOL E 20MG TAB TAKE ONE-HALF TABLET BY MOUTH AT BEDTIME FOR MOOD STABILIZ ATION ORAL DISCONT INUED 07/22/2024 [id number] 4 OLINDA EMERSON R 2023 45 [facility] CHOLECALCIF MARTHA 50MCG (2,000UNIT) TAB TAKE ONE TABLET BY MOUTH ONCE A DAY ORAL ACTIVE OLMAN RUGGIERO 2022 [facility] EPINEPHRINE (EQV-ADRENA CLICK) 0.3MG/0.3ML INJECTOR INJECT 1 PEN (0.3MG/0 .3ML) INTRAMUS CULARLY ONE-TIME FOR ALLERGIC REACTION INTRAM USCULA R 11/19/2024 [id number] Amanda RÍOS 2023 2 [facility] FAMOTIDINE 40MG TAB TAKE ONE TABLET BY MOUTH TWICE A DAY FOR GASTROES OPHAGEAL REFLUX DISEASE ORAL 10/30/2024 [id number] 4 Amanda RÍOS R 2023 180 [facility] FLUOXETINE HCL 20MG CAP TAKE TWO CAPSULES BY MOUTH EVERY MORNING FOR MOOD ORAL 09/08/2023 [id number] 4 Susan RODRIGUEZ 2022 60 [place] FLUTICASONE PROPIONATE 50MCG/SPRAY SOLN,NASAL, 16GM INSTILL 1 SPRAY IN NOSTRIL( S) ONCE A DAY FOR RHINITIS (MUST BE USED DIRECTED FOR MINIMUM OF 21 DAYS TO PROVIDE ADEQUATE BENEFITS ) NASAL ACTIVE 06/26/2025 [id number] 5 Amanda RÍOS 2024 1 [facility] FLUTICASONE PROPIONATE 50MCG/SPRAY SOLN,NASAL, 16GM INSTILL 2 SPRAYS IN NOSTRIL( S) ONCE A DAY NEEDED NASAL ACTIVE OLMAN RUGGIERO 2022 [facility] GABAPENTIN 100MG CAP TAKE ONE CAPSULE BY MOUTH THREE TIMES A DAY NEEDED FOR NERVE PAIN ORAL 10/30/2024 [id number] Amanda RÍOS R [address] [place] [address] [facility] HYDROXYZINE HCL 25MG TAB TAKE ONE TABLET BY MOUTH THREE TIMES A DAY NEEDED FOR ANXIETY *MAY CAUSE DROWSINE SS* ORAL ACTIVE 11/18/2025 [id number] 5 OLINDA EMERSON R [address] [place] [address] [facility] HYDROXYZINE HCL 25MG TAB TAKE ONE TABLET BY MOUTH THREE TIMES A DAY NEEDED FOR ANXIETY *MAY CAUSE DROWSINE SS* ORAL DISCONT INUED 05/08/2025 [id number] 5 OLINDA EMERSON R [address] [place] [address] [facility] HYDROXYZINE HCL 25MG TAB TAKE ONE TABLET BY MOUTH THREE TIMES A DAY NEEDED FOR ANXIETY *MAY CAUSE DROWSINE SS* ORAL DISCONT INUED 03/24/2025 [id number] 5 Amanda RÍOS R [address] [place] [address] [facility] HYDROXYZINE HCL 25MG TAB TAKE ONE TABLET BY MOUTH THREE TIMES A DAY NEEDED FOR ANXIETY *MAY CAUSE DROWSINE SS* ORAL DISCONT INUED 01/06/2025 [id number] 4 OLINDA EMERSON R [address] [place] [address] [facility] HYDROXYZINE HCL 25MG TAB TAKE ONE TABLET BY MOUTH THREE TIMES A DAY NEEDED FOR ANXIETY *MAY CAUSE DROWSINE SS* ORAL DISCONT INUED 10/22/2024 [id number] 4 OLINDA EMERSON R [address] [place] [address] [facility] MUPIROCIN 2% OINT,TOP APPLY SPARINGL Y TO AFFECTED AREA(S) TWICE A DAY FOR BACTERIA L INFECTIO N EXTERNAL USE ONLY. TOPICA L 02/17/2024 [id number] Amanda RÍOS R [address] [place] [address] [facility] OMEPRAZOLE 20MG CAP,EC TAKE ONE CAPSULE BY MOUTH EVERY MORNING BEFORE A MEAL FOR GASTROES OPHAGEAL REFLUX DISEASE TAKE 30 MINUTES PRIOR TO FOOD. ORAL DISCONT INUED BY MARTY R 01/25/2024 [id number] 4 OLMAN RUGGIERO [address] [place] [address] [facility] ONDANSETRON HCL 8MG TAB TAKE ONE-HALF TABLET BY MOUTH TWICE DAILY NEEDED FOR NAUSEA/V OMITING ORAL 12/09/2023 [id number] Amanda RÍOS R 2023 40 [facility] PANTOPRAZOL E NA 40MG TAB,EC TAKE ONE TABLET BY MOUTH EVERY MORNING BEFORE A MEAL FOR GASTROES OPHAGEAL REFLUX DISEASE TAKE 30 MINUTES BEFORE MEAL(S) ORAL 10/30/2024 [id number] Amanda RÍOS R [address] [place] [address] [facility] PRAZOSIN HCL 2MG CAP TAKE ONE CAPSULE BY MOUTH AT BEDTIME FOR PTSD MAY CAUSE DIZZINES S OR DROWSINE SS. ORAL ACTIVE 11/18/2025 [id number] 5 OLINDA EMERSON R [address] [place] [address] [facility] PRAZOSIN HCL 2MG CAP TAKE ONE CAPSULE BY MOUTH AT BEDTIME FOR PTSD MAY CAUSE DIZZINES S OR DROWSINE SS. ORAL DISCONT INUED 05/08/2025 [id number] 4 OLINDA EMERSON R [address] [place] [address] [facility] PRAZOSIN HCL 2MG CAP TAKE ONE CAPSULE BY MOUTH AT BEDTIME FOR PTSD MAY CAUSE DIZZINES S OR DROWSINE SS. ORAL DISCONT INUED 01/06/2025 [id number] 4 OLINDA EMERSON R [address] [place] [address] [facility] THIAMINE 100MG TAB TAKE ONE TABLET BY MOUTH ONCE A DAY ORAL ACTIVE OLMAN RUGGIERO 2022 [facility] Allergies, Adverse Reactions, Alerts Combined list of allergies from Department of Defense and Veterans Affairs facilities. It does not include entries that were removed or entered in error. Substance Category Reaction Severity Reaction type Status Date Reported Comments Source EGGS Propensity to adverse reactions to substance (finding) Nausea and vomiting active 0 [facility] EGGS Propensity to adverse reactions to substance (finding) active 8 [facility] Immunizations Combined list of available immunizations from the Department of Defense and Veterans Affairs facilities. Immunization Series Date Given Administered By Site Reaction Lot Number CVX Code Drug Stock Letterer Status Comments Source TDAP 2017 115 complet ed [facility] INFLUENZA, SEASONAL, INJECTABLE, PRESERVATIVE FREE 2012 140 complet ed [place] [facility] TDAP 2006 115 complet ed [facility] TD (ADULT), 2 LF TETANUS TOXOID, PRESERVATIVE FREE, ADSORBED 1 2001 09 complet ed HISTORICA L INFORMATI ON - FROM OTHER REGISTRY, [facility] HEP B, ADOLESCENT OR PEDIATRIC 3 2000 08 complet ed HISTORICA L INFORMATI ON - FROM OTHER REGISTRY, [facility] HEP B, UNSPECIFIED FORMULATION 4 2000 45 complet ed HISTORICA L INFORMATI ON - FROM OTHER REGISTRY, [facility] HEP B, UNSPECIFIED FORMULATION 2 2000 45 complet ed HISTORICA L INFORMATI ON - FROM OTHER REGISTRY, [facility] HEP B, UNSPECIFIED FORMULATION 1 2000 45 complet ed HISTORICA L INFORMATI ON - FROM OTHER REGISTRY, [facility] Results Combined list of recent chemistry, hematology and other laboratory results from Department of Defense and Veterans Affairs, ranging from 15 months to all on record, depending upon the facility. Order Name Results Value Reference Range Date Interpretation Specimen Comments Source COMPREHEN SIVE METABOLIC PANEL CREATININE [MASS/VOLUM E] IN SERUM OR PLASMA 0.85 mg/dL 0.7 - 1.3 06/23 Specimen Type: PLASMA No comment entered. Ordering Provider: NITIN RÍOS Report Released Date/Time: Jun 23, 2024 10:17 AM Reporting Lab: [place] [facility] [address] [place] [address] Performing Lab: [place] [facility] [address] [place] [address] [facility] COMPREHEN SIVE METABOLIC PANEL UREA NITROGEN [MASS/VOLUM E] IN SERUM OR PLASMA 19 mg/dL 9 - 25 06/23 Specimen Type: PLASMA No comment entered. Ordering Provider: NITIN RÍOS R Report Released Date/Time: Jun 23, 2024 10:17 AM Reporting Lab: [place] [facility] [address] [place] [address] Performing Lab: [place] [facility] [address] [place] [address] [facility] COMPREHEN SIVE METABOLIC PANEL GLUCOSE [MASS/VOLUM E] IN SERUM OR PLASMA 84 mg/dL 72 - 99 06/23 Specimen Type: PLASMA No comment entered. Ordering Provider: NITIN RÍOS R Report Released Date/Time: Jun 23, 2024 10:17 AM Reporting Lab: [place] [facility] [address] [place] [address] Performing Lab: [place] [facility] [address] [place] [address] [facility] COMPREHEN SIVE METABOLIC PANEL SODIUM [MOLES/VOLU ME] IN SERUM OR PLASMA 137 meq/L 136 - 145 06/23 Specimen Type: PLASMA No comment entered. Ordering Provider: NITIN RÍOS R Report Released Date/Time: Jun 23, 2024 10:17 AM Reporting Lab: [place] [facility] [address] [place] [address] Performing Lab: [place] [facility] [address] [place] [address] [facility] COMPREHEN SIVE METABOLIC PANEL POTASSIUM [MOLES/VOLU ME] IN SERUM OR PLASMA 4.2 meq/L 3.5 - 5 06/23 Specimen Type: PLASMA No comment entered. Ordering Provider: NITIN RÍOS R Report Released Date/Time: Jun 23, 2024 10:17 AM Reporting Lab: [place] [facility] [address] [place] [address] Performing Lab: [place] [facility] [address] [place] [address] [facility] COMPREHEN SIVE METABOLIC PANEL CHLORIDE [MOLES/VOLU ME] IN SERUM OR PLASMA 107 meq/L 98 - 107 06/23 Specimen Type: PLASMA No comment entered. Ordering Provider: NITIN RÍOS R Report Released Date/Time: Jun 23, 2024 10:17 AM Reporting Lab: [place] [facility] [address] [place] [address] Performing Lab: [place] [facility] [address] [place] [address] [facility] COMPREHEN SIVE METABOLIC PANEL CARBON DIOXIDE, TOTAL [MOLES/VOLU ME] IN SERUM OR PLASMA 24 meq/L 22 - 31 06/23 Specimen Type: PLASMA No comment entered. Ordering Provider: NITIN RÍOS Report Released Date/Time: Jun 23, 2024 10:17 AM Reporting Lab: [place] [facility] [address] [place] [address] Performing Lab: [place] [facility] [address] [place] [address] [facility] COMPREHEN SIVE METABOLIC PANEL CALCIUM [MASS/VOLUM E] IN SERUM OR PLASMA 9.5 mg/dL 8.4 - 10.4 06/23 Specimen Type: PLASMA No comment entered. Ordering Provider: NITIN RÍOS R Report Released Date/Time: Jun 23, 2024 10:17 AM Reporting Lab: [place] [facility] [address] [place] [address] Performing Lab: [place] [facility] [address] [place] [address] [facility] COMPREHEN SIVE METABOLIC PANEL PROTEIN [MASS/VOLUM E] IN SERUM OR PLASMA 7.3 g/dL 6 - 8.6 06/23 Specimen Type: PLASMA No comment entered. Ordering Provider: NITIN RÍOS R Report Released Date/Time: Jun 23, 2024 10:17 AM Reporting Lab: [place] [facility] [address] [place] [address] Performing Lab: [place] [facility] [address] [place] [address] [facility] COMPREHEN SIVE METABOLIC PANEL ALBUMIN [MASS/VOLUM E] IN SERUM OR PLASMA 4.6 g/dL 3.4 - 5 06/23 Specimen Type: PLASMA No comment entered. Ordering Provider: NITIN RÍOS R Report Released Date/Time: Jun 23, 2024 10:17 AM Reporting Lab: [place] [facility] [address] [place] [address] Performing Lab: [place] [facility] [address] [place] [address] [facility] COMPREHEN SIVE METABOLIC PANEL BILIRUBIN.T OTAL [MASS/VOLUM E] IN SERUM OR PLASMA 0.8 mg/dL 0.2 - 1.2 06/23 Specimen Type: PLASMA No comment entered. Ordering Provider: NITIN RÍOS R Report Released Date/Time: Jun 23, 2024 10:17 AM Reporting Lab: [place] [facility] [address] [place] [address] Performing Lab: [place] [facility] [address] [place] [address] [facility] COMPREHEN SIVE METABOLIC PANEL ALKALINE PHOSPHATASE [ENZYMATIC ACTIVITY/VO LUME] IN SERUM OR PLASMA 84 U/L 40 - 150 06/23 Specimen Type: PLASMA No comment entered. Ordering Provider: NITIN RÍOS R Report Released Date/Time: Jun 23, 2024 10:17 AM Reporting Lab: [place] [facility] [address] [place] [address] Performing Lab: [place] [facility] [address] [place] [address] [facility] COMPREHEN SIVE METABOLIC PANEL ASPARTATE AMINOTRANSF ERASE [ENZYMATIC ACTIVITY/VO LUME] IN SERUM OR PLASMA 20 U/L 5 - 34 06/23 Specimen Type: PLASMA No comment entered. Ordering Provider: NITIN RÍOS R Report Released Date/Time: Jun 23, 2024 10:17 AM Reporting Lab: [place] [facility] [address] [place] [address] Performing Lab: [place] [facility] [address] [place] [address] [facility] COMPREHEN SIVE METABOLIC PANEL ALANINE AMINOTRANSF ERASE [ENZYMATIC ACTIVITY/VO LUME] IN SERUM OR PLASMA 20 U/L 8 - 40 06/23 Specimen Type: PLASMA No comment entered. Ordering Provider: NITIN RÍOS R Report Released Date/Time: Jun 23, 2024 10:17 AM Reporting Lab: [place] [facility] [address] [place] [address] Performing Lab: [place] [facility] [address] [place] [address] [facility] COMPREHEN SIVE METABOLIC PANEL GLOMERULAR FILTRATION RATE/1.73 SQ M.PREDICTED [VOLUME RATE/AREA] IN SERUM, PLASMA OR BLOOD BY CREATININE- BASED FORMULA (CKD-EPI 2020) 114 06/23 Specimen Type: PLASMA No comment entered. Ordering Provider: NITIN RÍOS Report Released Date/Time: Jun 23, 2024 10:17 AM Reporting Lab: [place] [facility] [address] [place] [address] Performing Lab: [place] [facility] [address] [place] [address] [facility] CBC LEUKOCYTES [#/VOLUME] IN BLOOD BY AUTOMATED COUNT 7.6 10*3/uL 3.6 - 11.2 06/23 Specimen Type: BLOOD No comment entered. Ordering Provider: NITIN RÍOS R Report Released Date/Time: Jun 23, 2024 10:17 AM Reporting Lab: [place] [facility] [address] [place] [address] Performing Lab: [place] [facility] [address] [place] [address] [facility] CBC ERYTHROCYTE S [#/VOLUME] IN BLOOD BY AUTOMATED COUNT 5.03 10*6/uL 4.10 - 5.70 06/23 Specimen Type: BLOOD No comment entered. Ordering Provider: NITIN RÍOS R Report Released Date/Time: Jun 23, 2024 10:17 AM Reporting Lab: [place] [facility] [address] [place] [address] Performing Lab: [place] [facility] [address] [place] [address] [facility] CBC HEMOGLOBIN [MASS/VOLUM E] IN BLOOD 15.2 g/dL 13.1 - 16.8 06/23 Specimen Type: BLOOD No comment entered. Ordering Provider: NITIN RÍOS Report Released Date/Time: Jun 23, 2024 10:17 AM Reporting Lab: [place] [facility] [address] [place] [address] Performing Lab: [place] [facility] [address] [place] [address] [facility] CBC HEMATOCRIT [VOLUME FRACTION] OF BLOOD 42.8 38.2 - 48.4 06/23 Specimen Type: BLOOD No comment entered. Ordering Provider: NITIN RÍOS Report Released Date/Time: Jun 23, 2024 10:17 AM Reporting Lab: [place] [facility] [address] [place] [address] Performing Lab: [place] [facility] [address] [place] [address] [facility] CBC MCV [ENTITIC VOLUME] BY AUTOMATED COUNT 85.1 fL 80.0 - 100.0 06/23 Specimen Type: BLOOD No comment entered. Ordering Provider: NITIN RÍOS R Report Released Date/Time: Jun 23, 2024 10:17 AM Reporting Lab: [place] [facility] [address] [place] [address] Performing Lab: [place] [facility] [address] [place] [id number] [facility] CBC MCH [ENTITIC MASS] BY AUTOMATED COUNT 30.2 pg 27.0 - 34.0 06/23 Specimen Type: BLOOD No comment entered. Ordering Provider: NITIN RÍOS R Report Released Date/Time: Jun 23, 2024 10:17 AM Reporting Lab: [place] [facility] [address] [place] [address] Performing Lab: [place] [facility] [address] [place] [address] [facility] CBC MCHC [MASS/VOLUM E] BY AUTOMATED COUNT 35.5 g/dL 33.0 - 36.0 06/23 Specimen Type: BLOOD No comment entered. Ordering Provider: NIITN RÍOS Report Released Date/Time: Jun 23, 2024 10:17 AM Reporting Lab: [place] [facility] [address] [place] [address] Performing Lab: [place] [facility] [address] [place] [address] [facility] CBC PLATELETS [#/VOLUME] IN BLOOD BY AUTOMATED COUNT 280 10*3/uL 150 - 400 06/23 Specimen Type: BLOOD No comment entered. Ordering Provider: NITIN RÍOS R Report Released Date/Time: Jun 23, 2024 10:17 AM Reporting Lab: [place] [facility] [address] [place] [address] Performing Lab: [place] [facility] [address] [place] [address] [facility] CBC PLATELET MEAN VOLUME [ENTITIC VOLUME] IN BLOOD BY AUTOMATED COUNT 10.4 fL 7.5 - 11.2 06/23 Specimen Type: BLOOD No comment entered. Ordering Provider: NITIN RÍOS R Report Released Date/Time: Jun 23, 2024 10:17 AM Reporting Lab: [place] [facility] [address] [place] [phone] Performing Lab: [place] [facility] [address] [place] [phone] [facility] CBC ERYTHROCYTE DISTRIBUTIO N WIDTH [RATIO] BY AUTOMATED COUNT 12.1 11.8 - 15.1 06/23 Specimen Type: BLOOD No comment entered. Ordering Provider: NITIN RÍOS R Report Released Date/Time: Jun 23, 2024 10:17 AM Reporting Lab: [place] [facility] [address] [place] [address] Performing Lab: [place] [facility] [address] [place] [address] [facility] CBC LYMPHOCYTES /100 LEUKOCYTES IN BLOOD BY AUTOMATED COUNT 27.5 06/23 Specimen Type: BLOOD No comment entered. Ordering Provider: INTIN RÍOS R Report Released Date/Time: Jun 23, 2024 10:17 AM Reporting Lab: [place] [facility] [address] [place] [address] Performing Lab: [place] [facility] [address] [place] [address] [facility] CBC MONOCYTES/1 00 LEUKOCYTES IN BLOOD BY AUTOMATED COUNT 8.3 06/23 Specimen Type: BLOOD No comment entered. Ordering Provider: NITIN RÍOS Report Released Date/Time: Jun 23, 2024 10:17 AM Reporting Lab: [place] [facility] [address] [place] [address] Performing Lab: [place] [facility] [address] [place] [address] [facility] CBC NEUTROPHILS /100 LEUKOCYTES IN BLOOD BY AUTOMATED COUNT 61.9 06/23 Specimen Type: BLOOD No comment entered. Ordering Provider: NITIN RÍOS Report Released Date/Time: Jun 23, 2024 10:17 AM Reporting Lab: [place] [facility] [address] [place] [address] Performing Lab: [place] [facility] [address] [place] [address] [facility] CBC EOSINOPHILS /100 LEUKOCYTES IN BLOOD BY AUTOMATED COUNT 1.2 06/23 Specimen Type: BLOOD No comment entered. Ordering Provider: NITIN RÍOS Report Released Date/Time: Jun 23, 2024 10:17 AM Reporting Lab: [place] [facility] [address] [place] [address] Performing Lab: [place] [facility] [address] [place] [address] [facility] CBC BASOPHILS/1 00 LEUKOCYTES IN BLOOD BY AUTOMATED COUNT 0.8 06/23 Specimen Type: BLOOD No comment entered. Ordering Provider: NITIN RÍOS R Report Released Date/Time: Jun 23, 2024 10:17 AM Reporting Lab: [place] [facility] [address] [place] [address] Performing Lab: [place] [facility] [address] [place] [address] [facility] CBC LYMPHOCYTES [#/VOLUME] IN BLOOD BY AUTOMATED COUNT 2.10 10*3/uL 0.77 - 4.50 06/23 Specimen Type: BLOOD No comment entered. Ordering Provider: NITIN RÍOS R Report Released Date/Time: Jun 23, 2024 10:17 AM Reporting Lab: [place] [facility] [address] [place] [address] Performing Lab: [place] [facility] [address] [place] [address] [facility] CBC MONOCYTES [#/VOLUME] IN BLOOD BY AUTOMATED COUNT 0.63 10*3/uL 0.19 - 0.8 06/23 Specimen Type: BLOOD No comment entered. Ordering Provider: NITIN RÍOS R Report Released Date/Time: Jun 23, 2024 10:17 AM Reporting Lab: [place] [facility] [address] [place] [address] Performing Lab: [place] [facility] [address] [place] [address] [facility] CBC NEUTROPHILS [#/VOLUME] IN BLOOD BY AUTOMATED COUNT 4.73 10*3/uL 2.10 - 8.00 06/23 Specimen Type: BLOOD No comment entered. Ordering Provider: NITIN RÍOS Report Released Date/Time: Jun 23, 2024 10:17 AM Reporting Lab: [place] [facility] [address] [place] [address] Performing Lab: [place] [facility] [address] [place] [address] [facility] CBC EOSINOPHILS [#/VOLUME] IN BLOOD BY AUTOMATED COUNT 0.09 10*3/uL 0.00 - 0.60 06/23 Specimen Type: BLOOD No comment entered. Ordering Provider: NITIN RÍOS R Report Released Date/Time: Jun 23, 2024 10:17 AM Reporting Lab: [place] [facility] [address] [place] [address] Performing Lab: [place] [facility] [address] [place] [address] [facility] CBC BASOPHILS [#/VOLUME] IN BLOOD BY AUTOMATED COUNT 0.06 10*3/uL 0.00 - 0.20 06/23 Specimen Type: BLOOD No comment entered. Ordering Provider: NITIN RÍOS R Report Released Date/Time: Jun 23, 2024 10:17 AM Reporting Lab: [place] [facility] [address] [place] [address] Performing Lab: [place] [facility] [address] [place] [address] [facility] CBC IMMATURE GRANULOCYTE S/100 LEUKOCYTES IN BLOOD BY AUTOMATED COUNT 0.3 06/23 Specimen Type: BLOOD No comment entered. Ordering Provider: NITIN RÍOS Report Released Date/Time: Jun 23, 2024 10:17 AM Reporting Lab: [place] [facility] [address] [place] [address] Performing Lab: [place] [facility] [address] [place] [address] [facility] CBC IMMATURE GRANULOCYTE S [#/VOLUME] IN BLOOD BY AUTOMATED COUNT 0.02 10*3/uL 0.00 - 0.05 06/23 Specimen Type: BLOOD No comment entered. Ordering Provider: NITIN RÍOS Report Released Date/Time: Jun 23, 2024 10:17 AM Reporting Lab: [place] [facility] [address] [place] [address] Performing Lab: [place] [facility] [address] [place] [address] [facility] POC UA (STL-PB-M A) PROTEIN [MASS/VOLUM E] IN URINE BY TEST STRIP Negative mg/dL 05/07 Specimen Type: URINE No comment entered. Ordering Provider: NITIN RÍOS Report Released Date/Time: May 07, 2024 10:47 AM Reporting Lab: [place] [facility] [address] [facility] [address] Performing Lab: [place] [facility] [address] [place] [address] [facility] POC UA (STL-PB-M A) HEMOGLOBIN [MASS/VOLUM E] IN URINE BY TEST STRIP Negative 05/07 Specimen Type: URINE No comment entered. Ordering Provider: NITIN RÍOS Report Released Date/Time: May 07, 2024 10:47 AM Reporting Lab: [place] [facility] [address] [facility] [address] Performing Lab: [place] [facility] [address] [facility] [address] [address] [place] [facility] POC UA (STL-PB-M A) LEUKOCYTES [PRESENCE] IN URINE Negative 05/07 Specimen Type: URINE No comment entered. Ordering Provider: NITIN RÍOS Report Released Date/Time: May 07, 2024 10:47 AM Reporting Lab: [place] [facility] [address] [facility] [address] [address] Performing Lab: [place] [facility] [address] [facility] [address] [address] [facility] POC UA (STL-PB-M A) COLOR OF URINE Yellow 05/07 Specimen Type: URINE No comment entered. Ordering Provider: NITIN RÍOS Report Released Date/Time: May 07, 2024 10:47 AM Reporting Lab: [facility] [address] [facility] [address] Performing Lab: [place] [facility] [address] [facility] [address] [facility] POC UA (STL-PB-M A) SPECIFIC GRAVITY OF URINE 1.015 1.005 - 1.030 05/07 Specimen Type: URINE No comment entered. Ordering Provider: NITIN RÍOS Report Released Date/Time: May 07, 2024 10:47 AM Reporting Lab: [place] [facility] [address] [facility] [address] Performing Lab: [place] [facility] [address] [facility] [address] [facility] POC UA (STL-PB-M A) UROBILINOGE N [UNITS/VOLU ME] IN URINE 0.2 {Peter 'U}/dL 0.1 - 1.0 05/07 Specimen Type: URINE No comment entered. Ordering Provider: NITIN RÍOS Report Released Date/Time: May 07, 2024 10:47 AM Reporting Lab: [place] [facility] [address] [facility] [address] [facility] [address] Performing Lab: [place] [facility] [address] [facility] [address] [place] [facility] POC UA (STL-PB-M A) BILIRUBIN.T OTAL [PRESENCE] IN URINE Negative 05/07 Specimen Type: URINE No comment entered. Ordering Provider: NITIN RÍOS Report Released Date/Time: May 07, 2024 10:47 AM Reporting Lab: [place] [facility] [address] [facility] [address] Performing Lab: [place] [facility] [address] [facility] [address] [place] [facility] POC UA (STL-PB-M A) KETONES [MASS/VOLUM E] IN URINE BY TEST STRIP Negative mg/dL 05/07 Specimen Type: URINE No comment entered. Ordering Provider: NITIN RÍOS Report Released Date/Time: May 07, 2024 10:47 AM Reporting Lab: [place] [facility] [address] [facility] [address] Performing Lab: [place] [facility] [address] [facility] [address] [facility] POC UA (STL-PB-M A) GLUCOSE [MASS/VOLUM E] IN URINE BY TEST STRIP Negative mg/dL 05/07 Specimen Type: URINE No comment entered. Ordering Provider: NITIN RÍOS Report Released Date/Time: May 07, 2024 10:47 AM Reporting Lab: [place] [facility] [address] [facility] [address] Performing Lab: [place] [facility] [address] [facility] [address] [place] [facility] POC UA (STL-PB-M A) PH OF URINE 7.0 5.0 - 8.0 05/07 Specimen Type: URINE No comment entered. Ordering Provider: NITIN RÍOS Report Released Date/Time: May 07, 2024 10:47 AM Reporting Lab: [place] [facility] [address] [facility] [address] Performing Lab: [place] [facility] [address] [facility] [address] [facility] POC UA (STL-PB-M A) NITRITE [PRESENCE] IN URINE BY TEST STRIP Negative 05/07 Specimen Type: URINE No comment entered. Ordering Provider: NITIN RÍOS Report Released Date/Time: May 07, 2024 10:47 AM Reporting Lab: [place] [facility] [address] [facility] [address] Performing Lab: [place] [facility] [address] [facility] [address] [facility] POC UA (STL-PB-M A) CLARITY OF URINE Clear 05/07 Specimen Type: URINE No comment entered. Ordering Provider: NITIN RÍOS Report Released Date/Time: May 07, 2024 10:47 AM Reporting Lab: [facility] [address] [facility] [address] Performing Lab: [facility] [address] [facility] [address] [facility] URINALYSI S (STL-PB) COLOR OF URINE Light Yellow 04/07 Specimen Type: URINE No comment entered. Ordering Provider: NITIN RÍOS Report Released Date/Time: Mar 23, 2024 11:54 AM Reporting Lab: [place] [facility] [address] [place] [address] Performing Lab: [place] [facility] [address] [place] [address] [facility] URINALYSI S (STL-PB) BILIRUBIN.T OTAL [PRESENCE] IN URINE BY TEST STRIP NEGATIVE mg/dL 04/07 Specimen Type: URINE No comment entered. Ordering Provider: NITIN RÍOS Report Released Date/Time: Mar 23, 2024 11:54 AM Reporting Lab: [place] [facility] [address] [place] [address] Performing Lab: [place] [facility] [address] [place] [address] [facility] URINALYSI S (STL-PB) PH OF URINE BY TEST STRIP 6.5 5.0 - 8.0 04/07 Specimen Type: URINE No comment entered. Ordering Provider: NITIN RÍOS Report Released Date/Time: Mar 23, 2024 11:54 AM Reporting Lab: [place] [facility] [address] [place] [address] Performing Lab: [place] [facility] [address] [place] [address] [facility] URINALYSI S (STL-PB) APPEARANCE OF URINE CLEAR 04/07 Specimen Type: URINE No comment entered. Ordering Provider: NITIN RÍOS Report Released Date/Time: Mar 23, 2024 11:54 AM Reporting Lab: [place] [facility] [address] [place] [address] Performing Lab: [place] [facility] [address] [place] [address] [facility] URINALYSI S (STL-PB) NITRITE [PRESENCE] IN URINE BY TEST STRIP NEGATIVE mg/dL 04/07 Specimen Type: URINE No comment entered. Ordering Provider: NITIN RÍOS Report Released Date/Time: Mar 23, 2024 11:54 AM Reporting Lab: [place] [facility] [address] [place] [address] Performing Lab: [place] [facility] [address] [place] [address] [facility] URINALYSI S (STL-PB) GLUCOSE [MASS/VOLUM E] IN URINE BY TEST STRIP NORMALmg /dL 04/07 Specimen Type: URINE No comment entered. Ordering Provider: NITIN RÍOS Report Released Date/Time: Mar 23, 2024 11:54 AM Reporting Lab: [place] [facility] [address] [place] [address] Performing Lab: [place] [facility] [address] [place] [address] [facility] URINALYSI S (STL-PB) PROTEIN [MASS/VOLUM E] IN URINE BY TEST STRIP NEGATIVE mg/dL 04/07 Specimen Type: URINE No comment entered. Ordering Provider: NITIN RÍOS Report Released Date/Time: Mar 23, 2024 11:54 AM Reporting Lab: [place] [facility] [address] [place] [address] Performing Lab: [place] [facility] [address] [place] [address] [facility] URINALYSI S (STL-PB) URN.UROBILI NOGEN NORMALmg /dL 04/07 Specimen Type: URINE No comment entered. Ordering Provider: NITIN RÍOS Report Released Date/Time: Mar 23, 2024 11:54 AM Reporting Lab: [place] [facility] [address] [place] [address] Performing Lab: [place] [facility] [address] [place] [address] [facility] URINALYSI S (STL-PB) HEMOGLOBIN [MASS/VOLUM E] IN URINE BY TEST STRIP NEGATIVE mg/dL 04/07 Specimen Type: URINE No comment entered. Ordering Provider: NITIN RÍOS R Report Released Date/Time: Mar 23, 2024 11:54 AM Reporting Lab: [place] [facility] [address] [place] [address] Performing Lab: [place] [facility] [address] [place] [address] [facility] URINALYSI S (STL-PB) KETONES [MASS/VOLUM E] IN URINE BY TEST STRIP NEGATIVE mg/dL 04/07 Specimen Type: URINE No comment entered. Ordering Provider: NITIN RÍOS Report Released Date/Time: Mar 23, 2024 11:54 AM Reporting Lab: [place] [facility] [address] [place] [address] Performing Lab: [place] [facility] [address] [place] [address] [facility] URINALYSI S (STL-PB) URN.LEUK.ES T. NEGATIVE 04/07 Specimen Type: URINE No comment entered. Ordering Provider: NITIN RÍOS Report Released Date/Time: Mar 23, 2024 11:54 AM Reporting Lab: [place] [facility] [address] [place] [address] Performing Lab: [place] [facility] [address] [place] [address] [facility] URINALYSI S (STL-PB) SPECIFIC GRAVITY OF URINE 1.012 1.005 - 1.029 04/07 Specimen Type: URINE No comment entered. Ordering Provider: NITIN RÍOS Report Released Date/Time: Mar 23, 2024 11:54 AM Reporting Lab: [place] [facility] [address] [place] [phone] Performing Lab: [place] [facility] [address] [place] [phone] [facility] T-4-thyro xine,tot (PB) THYROXINE (T4) [MASS/VOLUM E] IN SERUM OR PLASMA 6.2 ug/dL 5.9 - 10.3 04/07 Specimen Type: SERUM Comment: Test Performed by [facility], [address] [place] [address] Liu Cortes M.D., Ph.D., Director of Laboratorie s , CLIA [id number] Ordering Provider: NITIN RÍOS Report Released Date/Time: Mar 30, 2024 04:40 PM Reporting Lab: [place] [facility] [address] [place] [address] Performing Lab: [place] [facility] [address] [facility] TOTAL T3 (PB-SO) TRIIODOTHYR ONINE (T3) FREE [MASS/VOLUM E] IN SERUM OR PLASMA 109.2 ng/dL 76 - 181 04/07 Specimen Type: SERUM Comment: Test Performed by [facility], [address] [place] [address] Liu Cortes M.D., Ph.D., Director of Laboratorie s , CLIA [id number] Ordering Provider: NITIN RÍOS Report Released Date/Time: Mar 30, 2024 04:40 PM Reporting Lab: [place] [facility] [address] [place] [address] Performing Lab: [place] [facility] [address] [facility] T3 UPTAKE (MA-PB) TRIIODOTHYR ONINE RESIN UPTAKE (T3RU) IN SERUM OR PLASMA 32 22 - 35 04/07 Specimen Type: SERUM Comment: Test Performed by [facility], [facility], [address] [place] [address] Liu Cortes M.D., Ph.D., Director of Laboratorie s , CLIA [id number] Ordering Provider: NITIN RÍOS Report Released Date/Time: Mar 30, 2024 04:43 PM Reporting Lab: [place] [facility] [address] [place] [address] Performing Lab: [place] [address] [facility] TSH (MA-PB) THYROTROPIN [UNITS/VOLU ME] IN SERUM OR PLASMA 0.436 u[IU]/mL 0.47 - 5 03/23 L Specimen Type: SERUM No comment entered. Ordering Provider: NITIN RÍOS Report Released Date/Time: Mar 11, 2024 09:39 AM Reporting Lab: [place] [facility] [address] [place] [address] Performing Lab: [place] [facility] [address] [place] [address] [facility] VITAMIN D, 25-HYDROX Y 25-HYDROXYV ITAMIN D3 [MASS/VOLUM E] IN SERUM OR PLASMA 33.4 ng/mL 30 - 96 03/23 Specimen Type: SERUM No comment entered. Ordering Provider: NITIN RÍOS Report Released Date/Time: Mar 11, 2024 09:39 AM Reporting Lab: [place] [facility] [address] [place] [address] Performing Lab: [place] [facility] [address] [place] [address] [place] [facility] HGA1C HEMOGLOBIN A1C/HEMOGLO BIN.TOTAL IN BLOOD 4.8 4.0 - 6.0 03/23 Specimen Type: BLOOD No comment entered. Ordering Provider: NITIN RÍOS Report Released Date/Time: Mar 11, 2024 09:39 AM Reporting Lab: [place] [facility] [address] [place] [address] Performing Lab: [place] [facility] [address] [place] [address] [place] [facility] Vital Signs Combined list of inpatient and outpatient Vital Signs from Department of Defense and Veterans Affairs, ranging from 12 months to all on record, depending upon the facility. Vital Sign Value Date Comments Source SYSTOLIC BLOOD PRESSURE 134 11/19/2024 11:08:00 [place] [facility] DIASTOLIC BLOOD PRESSURE 74 11/19/2024 11:08:00 [place] [facility] PULSE OXIMETRY 99 % 11/19/2024 11:08:00 [facility] WEIGHT 224.3 11/19/2024 11:08:00 [place] [facility] BMI 30 kg/m2 11/19/2024 11:08:00 [place] [facility] PAIN 4 11/19/2024 11:08:00 [place] [facility] HEIGHT 73.0 11/19/2024 11:08:00 [place] [facility] PULSE 57 11/19/2024 11:08:00 [place] [facility] RESPIRATION 16 11/19/2024 11:08:00 [place] [facility] SYSTOLIC BLOOD PRESSURE 136 11/17/2024 09:30:00 [place] [facility] DIASTOLIC BLOOD PRESSURE 86 11/17/2024 09:30:00 [place] [facility] PULSE OXIMETRY 99 % 11/17/2024 09:30:00 [facility] WEIGHT 221.5 11/17/2024 09:30:00 [place] [facility] BMI 29 kg/m2 11/17/2024 09:30:00 [place] [facility] PAIN 0 11/17/2024 09:30:00 [place] [facility] TEMPERATURE 97.8 11/17/2024 09:30:00 [place] [facility] PULSE 63 11/17/2024 09:30:00 [place] [facility] RESPIRATION 20 11/17/2024 09:30:00 [place] [facility] SYSTOLIC BLOOD PRESSURE 138 06/23/2024 09:45:52 [place] [facility] DIASTOLIC BLOOD PRESSURE 85 06/23/2024 09:45:52 [facility] [place] [facility] PULSE OXIMETRY 98 06/23/2024 09:45:52 [facility] [place] [facility] WEIGHT 211 06/23/2024 09:45:52 [facility] [place] [facility] BMI 28 kg/m2 06/23/2024 09:45:52 [facility] [place] [facility] TEMPERATURE 98 06/23/2024 09:45:52 [place] [facility] PULSE 67 06/23/2024 09:45:52 [place] [facility] RESPIRATION 18 06/23/2024 09:45:52 [place] [facility] SYSTOLIC BLOOD PRESSURE 131 05/15/2024 08:29:00 [place] [facility] DIASTOLIC BLOOD PRESSURE 85 05/15/2024 08:29:00 [place] [facility] PULSE OXIMETRY 99 05/15/2024 08:29:00 [facility] WEIGHT 209.9 05/15/2024 08:29:00 [place] [facility] BMI 28 kg/m2 05/15/2024 08:29:00 [place] [facility] PAIN 3 05/15/2024 08:29:00 [place] [facility] TEMPERATURE 97.9 05/15/2024 08:29:00 [place] [facility] PULSE 75 05/15/2024 08:29:00 [place] [facility] RESPIRATION 20 05/15/2024 08:29:00 [place] [facility] SYSTOLIC BLOOD PRESSURE 128 05/07/2024 09:19:52 [place] [facility] DIASTOLIC BLOOD PRESSURE 84 05/07/2024 09:19:52 [place] [facility] PULSE OXIMETRY 99 05/07/2024 09:19:52 [facility] WEIGHT 205.2 05/07/2024 09:19:52 [place] [facility] BMI 27 kg/m2 05/07/2024 09:19:52 [place] [facility] PAIN 3 05/07/2024 09:19:52 [place] [place] [place] [facility] HEIGHT 73 05/07/2024 09:19:52 [facility] TEMPERATURE 97.7 05/07/2024 09:19:52 [facility] PULSE 61 05/07/2024 09:19:52 [facility] RESPIRATION 20 05/07/2024 09:19:52 [facility] Encounters Combined list of: 1) Encounters from Department of [facility] Affairs facilities going backup to the last 18 months, not all [facility] inpatient encounters are included; 2) Encounters from the Department of [facility] facilities going backup to 280 months. Location Location Details Encounter Type Encounter Number Reason For Visit Attending Provider ADM Date DC Date Status Disposition Source [place] [facility] TOPICAL [employer] [place] [id number] Diagnos is: ICD-10- CM K05.321 Chronic periodo ntitis, general ized, slight MAYSE,DAKOTA LOTTE ROSA 06/04 [place] [facility] Outpatient Encounter [id number] 06/04 [facility] [id number] 06/06 [facility] Encounter [id number] 06/14 [facility] Out[facility] Encounter [id number] 06/17 [facility] Outpatient Encounter [id number] 07/01 [facility] Encounter [id number] 07/03 [facility] Outpatient Encounter [id number] 07/08 [facility] Outpatient Encounter [id number] 07/08 [facility] Outpatient Encounter [id number] 07/09 [facility] LOW 20 MIN [id number] Diagnos is: ICD-10- CM F43.12 Post-tr aumatic stress disorde r, chronic SCHAY,SARIAH R 07/22 [facility] OFF/OP EST MAY X REQ PHY/QHP [id number] Diagnos is: ICD-10- CM J32.9 Chronic sinusit is, unspeci fied Emma WYATT 07/22 [facility] OFFICE O/P EST MOD 30 MIN [id number] Diagnos is: ICD-10- CM M77.12 Lateral epicond ylitis, left elbow ELIJAH GRACE G 07/22 [facility] [place] [facility] Outpatient Encounter [id number] WALLY BARBOSA 08/05 [place] [facility] Outpatient Encounter [id number] BARBARA GARZA 08/07 [facility] Outpatient Encounter [id number] 08/18 [facility] [place] [facility] Outpatient Encounter [id number] 08/18 [place] [facility] Outpatient Encounter [id number] 08/26 [facility] [place] [facility] COMPRE OPH EXAM NEW PT 1/> [id number] [id number] Diagnos is: ICD-10- CM 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, bilater al TANNA BELLE S 09/15 [place] [facility] OFF/OP EST MAY X REQ PHY/QHP [id number] Diagnos is: ICD-10- CM K21.00 Gastro- esophag eal reflux dis with esophag itis, without bleed mEma WYATT 10/16 [facility] OFFICE O/P EST LOW 20 MIN [id number] [id number] Diagnos is: ICD-10- CM F43.12 Post-tr aumatic stress disorde r, chronic SARIAH EMERSON R 10/21 [facility] MAY X REQ PHY/QHP [id number] [id number] Diagnos is: ICD-10- CM K21.9 Gastro- esophag eal reflux disease without esophag itis NANCY RÍOS R 10/21 [facility] Outpatient Encounter [id number] 10/21 [facility] Outpatient Encounter [id number] [id number] 10/28 [facility] OFF/OP EST MAY X REQ PHY/QHP [id number] [id number] Diagnos is: ICD-10- CM 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, 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 FARZANEH Martinez 10/29 [facility] Outpatient Encounter [id number] 10/30 [facility] [place] [facility] OFF/OP EST MAY X REQ PHY/QHP [id number] [id number] Diagnos is: ICD-10- CM F41.9 Anxiety disorde r, unspeci FARZANEH Martinez A 11/07 [facility] En[facility] [id number] [id number] 11/10 [facility] En[facility] [id number] [id number] 11/11 [facility] N [facility] OFFICE O/P EST LOW 20 MIN [id number] [id number] Diagnos is: ICD-10- CM Z91.014 Allergy to mammali an meats NANCY RÍOS 11/18 [facility] Encounter [id number] [id number] 11/18 [facility] Outpatient Encounter [id number] [id number] 11/24 [facility] Outpatient Encounter [id number] [id number] 11/24 [facility] Outpatient Encounter [id number] [id number] 12[facility]01 [facility] Encounter [id number] [id number] 12/18 [facility] Out[facility] Encounter [id number] [id number] 12/19 [facility] Outpatient Encounter [id number] [id number] 01/01 [facility] Outpatient Encounter [id number] [id number] 01/02 [facility] OFFICE O/P EST LOW 20 MIN [id number] [id number] Diagnos is: ICD-10- CM F43.12 Post-tr aumatic stress disorde r, chronic SARIAH EMERSON R 01/05 [facility] Out[facility] Encounter [id number] [id number] 01/07 [facility] Outpatient Encounter [id number] [id number] 01/19 [facility] Outpatient Encounter [id number] [id number] 01/23 [facility] Outpatient Encounter [id number] [id number] 02/26 [facility] Outpatient Encounter [id number] [id number] 03/05 [facility] Outpatient Encounter [id number] [id number] 03/20 [facility] Outpatient Encounter [id number] [id number] NANCY RÍOS 03/23 [facility] Outpatient Encounter [id number] [id number] Diagnos is: ICD-10- CM Z00.00 Encntr for general adult medical exam w/o abnorma l finding s NANCY RÍOS 03/23 [facility] [place] [facility] PERIODIC ORAL EVAL EST [id number] [id number] Diagnos is: ICD-10- CM K05.321 Chronic periodo ntitis, general ized, slight MAYSE,DAKOTA LOTTE ROSA 03/23 [place] [facility] Outpatient Encounter [id number] [id number] 04/07 [facility] Outpatient Encounter [id number] [id number] 04/21 [facility] Out[facility] Encounter [id number] [id number] 05/06 [facility] OFFICE O/P EST MOD 30 MIN [id number] [id number] Diagnos is: ICD-10- CM F43.12 Post-tr aumatic stress disorde r, chronic SARIAH EMERSON R 05/07 [facility] OFF/OP EST MAY X REQ PHY/QHP [id number] [id number] Diagnos is: ICD-10- CM R09.81 Nasal congest ion CUSTRED,TO RRI J 05/07 [facility] Outpatient Encounter [id number] [id number] 05/11 [facility] En[facility] [id number] [id number] 05/14 [place] [facility] Outpatient Encounter [id number] [id number] 05/15 [facility] Encounter [id number] [id number] NANCY RÍOS 05/15 [facility] OFF/OP EST MAY X REQ PHY/QHP [id number] [id number] Diagnos is: ICD-10- CM M25.532 Pain in left wrist NANCI ARELLANO D 05/15 [facility] Outpatient Encounter [id number] [id number] 06/04 [facility] Outpatient Encounter [id number] [id number] NANCY RÍOS THERINE R 06/23 [facility] OFFICE O/P EST LOW 20 MIN [id number] [id number] Diagnos is: ICD-10- CM R10.84 General ized abdomin al pain NANCY RÍOS THERINE R 06/23 [facility] Outpatient Encounter [id number] [id number] 06/25 [facility] Outpatient Encounter [id number] [id number] 06/29 [facility] Outpatient Encounter [id number] [id number] 06/29 [facility] Outpatient Encounter [id number] [id number] 07/22 [facility] Outpatient Encounter [id number] [id number] 09/25 [facility] Outpatient Encounter [id number] [id number] 09/30 [facility] Outpatient Encounter [id number] [id number] 10/21 [facility] Outpatient Encounter [id number] [id number] 11/04 [facility] N [facility] Outpatient Encounter [id number] [id number] 11/06 [facility] Outpatient Encounter [id number] [id number] 11/10 [facility] N [facility] Outpatient Encounter [id number] [id number] 11/13 [facility] N [facility] Outpatient Encounter [id number] [id number] 11/16 [facility] OFFICE O/P EST MOD 30 MIN [id number] [id number] Diagnos is: ICD-10- CM F43.12 Post-tr aumatic stress disorde r, chronic SARIAH EMERSON 11/17 [facility] OFFICE O/P EST LOW 20 MIN [id number] [id number] Diagnos is: ICD-10- CM M54.50 Low back pain, unspeci fied NANCY RÍOS 11/19 [facility] Social History Combined list of available smoking, tobacco, and other social history from Department of Defense and Veterans Affairs facilities. Social History Type Response Date Comment Source Tobacco smoking status TXIS VA-TOBACCO NEVER USED OTHER TYPE 05/07/2024 [facility] History of tobacco use VA-TOBACCO USE FORMER CIGARETTES 05/07/2024 [facility] History of tobacco use VA-TOBACCO FORMER USER 05/13/2023 [facility] History of tobacco use VA-TOBACCO FORMER USER 05/11/2022 [facility] History of tobacco use VA-TOBACCO FORMER USER 02/02/2022 [facility] History of tobacco use IN-TOBACCO FORMER USER 09/10/2018 [facility] History of tobacco use IN-TOBACCO NEVER USED 04/18/2018 [facility] History of tobacco use QUIT TOBACCO >12 MO and <7 YRS AGO 02/05/2018 [facility] History of tobacco use QUIT TOBACCO >12 MO and <7 YRS AGO 08/21/2017 [facility] History of tobacco use QUIT TOBACCO >12 MO and <7 YRS AGO 03/12/2016 [facility] History of tobacco use QUIT TOBACCO >12 MO and <7 YRS AGO 02/16/2015 [place] [facility] History of tobacco use TOBACCO OFFERED [facility]MO[facility] 01/27/2014 [place] [facility] History of tobacco use TOBACCO OFFERED [facility]MOKING CLINIC 11/12/2013 [place] [facility] History of tobacco use TOBACCO OFFERED [facility]MOKING CLINIC 10/23/2013 [place] [facility] History of tobacco use TOBACCO OFFERED STOP SMOKING CLINIC 09/25/2013 [place] [facility] History of tobacco use TOBACCO OFFERED PT MEDS (PROVIDER) 09/15/2013 [facility] History of tobacco use TOBACCO MEDS OFFERED BUT DECLINED 07/17/2013 [place] [facility] History of tobacco use TOBACCO OFFERED PT MEDS (PROVIDER) 07/10/2013 [place] [facility] History of tobacco use TOBACCO OFFERED PT MEDS (PROVIDER) 08/29/2012 will order his patches [place] [facility] History of tobacco use TOBACCO OFFERED PT MEDS (PROVIDER) 07/28/2012 [place] [facility] History of tobacco use TOBACCO OFFERED PT MEDS (PROVIDER) 05/22/2012 [place] [facility] History of tobacco use TOBACCO OFFERED PT MEDS (PROVIDER) 09/14/2011 [facility] History of tobacco use TOBACCO OFFERED PT MEDS (PROVIDER) 08/29/2011 he refused [facility] History of tobacco use TOBACCO OFFERED PT MEDS (PROVIDER) 08/17/2010 he refused [facility] History of tobacco use TOBACCO OFFERED PT MEDS (PROVIDER) 12/29/2009 he rerfused [facility] History of tobacco use TOBACCO OFFERED PT MEDS (PROVIDER) 11/14/2009 he refused [facility] History of tobacco use TOBACCO OFFERED STOP SMOKING CLINIC 11/14/2009 [facility] Plan of Care List of future care activities from [facility] facilities. Additional future care activities may be listed in the Assessment and Plan section. Date/Time Care Activity Care Activity Detail Facili ty 03/23/2025 AMBULATORY - MEDICINE AMBULATORY - MEDICI [facility] Advance Directives List of completed, amended, or rescinded Advance Directives on record at [facility] facilities. An actual copy of the Directive is not included. Date Advance Directive Provider Source 09/10/2018 ADVANCE DIRECTIVE KISHA [facility]EE [facility] 05/05/2018 ADVANCE DIRECTIVE KITTY VALDERRAMAU [facility] 10/16/2010 ADVANCE DIRECTIVE DISCUSSION [facility]
[2024-11-28 18:26] VITALS: BP 151/100; PULSE 80; RESP 18; TEMP 36.9; O2SAT 98; BMI 29.8
--- OUTSIDE RECORDS SUMMARY | 2024-11-28 18:45 | XMS_ITS | Patient Health Record ---
Author Organization [facility] Address [address] [place] [address] Care Team Providers Care Face Burler Name Role Phone [facility] Provid er Unavailable Acklin, Emi Unavailable [phone] KIRK, [place] Unavailable Unavailable Espinoza Costa Unavailable [phone] Joni Martínez Unavailable [phone] Garima Betts Unavailable [phone] Allergies Allergen (clinical drug ingredient) Drug/Non Drug Allergy documented on EMR Reaction Allergy Type Onset Date Status cedar elm pollen extract [place] Unknown Drug Allergy Active Results Component Value Reference Range Notes Schedule Confirmation Reviewed date:01/14/2024 07:20:26 AM Interpretation: Performing Lab: Notes/Report: CT Abdomen, Pelvis w/ + w/o Contrast Schedule Confirmation Reviewed date:01/13/2024 07:25:47 AM Interpretation: Performing Lab: Notes/Report: Esophagram w/ Swallow Function w/pill ch Schedule Confirmation Reviewed date:01/20/2024 12:04:30 PM Interpretation: Performing Lab: Notes/Report: CT Abdomen, Pelvis w/ + w/o Contrast Hepatic Function Panel [id number] Reviewed date:01/21/2024 01:43:46 PM Interpretation: Performing Lab: Notes/Report: Diagnosis Description: Abnormal findings on diagnostic imaging of other parts of digestive tract Diagnosis Description: Hepatomegaly, not elsewhere classified Total Protein 7.6 5.8-8.0 G/DL Albumin 5.3 3.2-4.8 G/DL Bili Total .8 .3-1.2 MG/DL Use of this ass ay is not recommended for patients undergoing treatment with eltrombopag due to the potential for falsely elevated results. Bili Direct .30 .05-.40 MG/DL Alk Phos 88 46-116 AST/SGOT 24 15-37 UNIT/L ALT/SGPT 24 12-78 UNIT/L Comprehensive Metabolic Pane l ([facility]) 70596 Reviewed date:01/21/2024 01:43:58 PM Interpretation: Performing Lab: Notes/Report: Diagnosis Description: Noninfective gastroenteritis and colitis, unspecified Glucose Serum 93 71-110 MG/DL Testing perfor med at [facility], [address] [place] [address] [place] [address]. CLIA ID#: [id number] BUN 11 7-21 MG/DL Creat .92 .57-1.17 MG/DL S-pbvvzk-o-benzoquino ne imine (NAPQI) is a metabolite of acetaminophen, NAPQI concentrations of apparoximately 10 mg/L correlation to toxic levels of acetaminophen demonstrates a greater than or equil to 10% change in results. NAPQI concentrations greater than this may lead to falsely depressed results for patient samples. Use of this assay is not recommended for patients undergoing treatment with phenindione, due to the potential for falsely depressed results. GFR 109.4 Calculation per formed from GFR calculator provided by the [employer]. Glomerular Filtration rate(GRF) is the best overall index of kidney function. Normal GFR varies according to age,sex, body size, and declines with age. The National Kid[employer] recommends using the CKD-EPI Creatinine Equation(2020) to estimate GFR. BUN/Creat Ratio 12.0 12.0-20.0 % Total Protein 7.6 5.8-8.0 G/DL Albumin 5.3 3.2-4.8 G/DL Globulin 2.3 2.3-3.5 G/DL Alb/Glob 2.3 0.8-2.2 Calcium 11.0 8.7-10.4 MG/DL Sodium 144 136-145 MMOL/L Potassium 4.6 3.5-5.1 MMOL/L Chloride 106 98-107 MMOL/L CO2 29.7 20.0-31.0 MMOL/L Anion Gap 13 5-15 Alk Phos 88 46-116 Bili Total .8 .3-1.2 MG/DL Use of this ass ay is not recommended for patients undergoing treatment with eltrombopag due to the potential for falsely elevated results. AST/SGOT 24 15-37 UNIT/L ALT/SGPT 24 12-78 UNIT/L Osmo Serum,Calculated 297 280-300 MOSM/KG CT Abdomen, Pelvis w/ + w/o Contrast-[id number] Reviewed date:01/21/2024 01:23:40 PM Interpretation: Performing Lab: Notes/Report: [id number]=iSite Calprotectin Fecal 00597 Reviewed date:01/13/2024 07:28:57 AM Interpretation: Performing Lab: Notes/Report: Diagnosis Description: Noninfective gastroenteritis and colitis, unspecified Calprotectin Fecal 28 <=49 REFERENCE INTERVAL: Calprotectin, Fecal by Immunoassay Less than 50 ug/g.........Normal 50-120 ug/g...............Bor derline elevated, test should be re-evaluated in 4-6 weeks. 121 ug/g or greater.......Elevated Performed By: [facility] [address] [place] [id number] Sealer Operator: Collin Mina MD, PhD CLIA Number: [id number] CDiff PCR Rfx C diff Toxin N AP/EPI 12290, 53631 Reviewed date:01/13/2024 07:30:23 AM Interpretation: Performing Lab: Notes/Report: Diagnosis Description: Noninfective gastroenteritis and colitis, unspecified CDiff PCR Reflex Negative A positive result by PCR indicates the presence of Clostridium difficile bacteria that is capable of producing toxin. It does not indicate toxin production; treatment should be based on clinical symptoms. Toxin testing will be performed on PCR positive results. O & P Stool 87803, 07214 Reviewed date:01/21/2024 01:42:55 PM Interpretation: Performing Lab: Notes/Report: Diagnosis Description: Noninfective gastroenteritis and colitis, unspecified Ova & Parasite ID Negative Negative INTERPRETIVE INFORMATION: Ova and Parasite, Fecal Method for identification of Ova and Parasites includes wet mount and trichrome stains. Due to the various shedding cycles of many parasites, three separate stool specimens collected over a 5-7-day period are recommended for ova and parasite examination. A single negative result does not rule out the possibility of a parasitic infection. The ova and parasite exam does not specifically detect Cryptosporidium, Cyclospora, Cystoisospora, and Microsporidia. For additional test information refer to [facility] consult, [email or web address] Performed By: [facility] [employer] [address] [place] [address] Sealer Operator: Collin Mina MD, PhD CLIA Number: [id number] Fecal Leukocyte 80555 Reviewed date:01/13/2024 07:28:51 AM Interpretation: Performing Lab: Notes/Report: Fecal Leukocyte NAGA Torre Fecal Leukocyte t: Fecal Leukocyte Fecal Leukocyte Accessio [id number] Fecal Leukocyte n: Fecal Leukocyte Microbiology Fecal Leukocyte PROCEDURE: Fecal Leukocyte [O1] Fecal Leukocyte SOURCE: Stool BODY SITE: Fecal Leukocyte COLLECTED DATE/TIME: 01/08/2024 11:00 CDT RECEIVED DATE/TIME: 01/08/2024 15:38 CDT Fecal Leukocyte START DATE/TIME: 01/08/2024 15:39 CDT FREE TEXT SOURCE: Fecal Leukocyte FINAL REPORT Fecal Leukocyte Final Report [] Fecal Leukocyte Verified Date/Time: 01/08/2024 17:02 CDT Fecal Leukocyte Fecal Leukocyte Negative Fecal Leukocyte Order Comments Fecal Leukocyte O1: Fecal Leukocyte (Fecal Leukocyte 28722) Fecal Leukocyte Diagnosis Descriptio n: Noninfective gastroenteritis and colitis, unspecified Giardia/Cryptosporidium Scre en 96863, 71024 Reviewed date:01/13/2024 07:29:08 AM Interpretation: Performing Lab: Notes/Report: Giardia/Cryptosporidium Screen NAGA Spears Giardia/Cryptosporidium Screen t: Giardia/Cryptosporidium Screen Giardia/Cryptosporidium Screen Accessio [id number] Giardia/Cryptosporidium Screen n: Giardia/Cryptosporidium Screen Microbiology Giardia/Cryptosporidium Screen PROCEDURE: Giardia/Cryptosporidium Giardia/Cryptosporidium Screen Screen [O1] Giardia/Cryptosporidium Screen SOURCE: Stool BODY SITE: Giardia/Cryptosporidium Screen COLLECTED DATE/TIME: 01/08/2024 11:00 CDT RECEIVED DATE/TIME: 01/08/2024 15:39 CDT Giardia/Cryptosporidium Screen START DATE/TIME: 01/08/2024 15:39 CDT FREE TEXT SOURCE: Giardia/Cryptosporidium Screen FINAL REPORT Giardia/Cryptosporidium Screen Final Report [] Giardia/Cryptosporidium Screen Verified Date/Time: 01/08/2024 15:52 CDT Giardia/Cryptosporidium Screen Negative for Giardia/Cryptosporidium Antigen Giardia/Cryptosporidium Screen Order Comments Giardia/Cryptosporidium Screen O1: Giardia/Cryptosporidium Screen (Giardia/Cryptosporidiu m Screen 80829, 98876) Giardia/Cryptosporidium Screen Diagnosis Description: Noninfective gastroenteritis and colitis, unspecified Culture Stool 74919, 94254, 79164, 25428, 81439 Reviewed date:01/13/2024 07:29:22 AM Interpretation: Performing Lab: Notes/Report: Culture Stool Jaclynen NAGA JI Culture Stool t: Culture Stool Culture Stool Accessio [id number] Culture Stool n: Culture Stool Microbiology Culture Stool PROCEDURE: Culture Stool [O1] Culture Stool SOURCE: Stool BODY SITE: Culture Stool COLLECTED DATE/TIME: 01/08/2024 11:00 CDT RECEIVED DATE/TIME: 01/08/2024 15:38 CDT Culture Stool START DATE/TIME: 01/08/2024 15:39 CDT FREE TEXT SOURCE: Culture Stool FINAL REPORT Culture Stool Final Report [] Culture Stool Verified Date/Time: 01/11/2024 07:47 CDT Culture Stool No Salmonella isolated Culture Stool No Shigella isolated Culture Stool No Yersinia isolated Culture Stool No Vibrio isolated Culture Stool No Campylobacter isolated Culture Stool No Aeromonas isolated Culture Stool No Plesiomonas isolated Culture Stool No Klebsiella oxytoc a isolated Culture Stool Order Comments Culture Stool O1: Culture Stool (Culture Stool 94648, 87326, 65653, 49296, 78435) Culture Stool Diagnosis Descriptio n: Noninfective gastroenteritis and colitis, unspecified CT Abdomen, Pelvis w/ + w/o Contrast-[id number] Reviewed date:01/21/2024 01:23:46 PM Interpretation: Performing Lab: Notes/Report: See Below For Report CT Abdomen, Pelvis w/ + w/o Contrast Diagnosis Description: Abnormal findings on diagnostic imaging of other parts of digestive tract Read See Below For Report Reason For Referral Reason GERD EGD/COLON-8wk F/U Referring Provider First Name Rob gonzalez Referring Provider Last Name NE Referring Provider Speciality [facility] Referred Organization [facility] Referred Provider Espinoza Costa Ref[address] [place], Referred Provider Specialty Gastroentero logy Referral Priority Routine Medications Medication SIG (Take, Route, Frequency, Duration) [...] Question Answer Notes Tobacco use: Former smoker Problems Problem Type SNOMED Code ICD Code Onset Dates Problem Status W/U Status Risk Notes Problem 28365217 Dysphagia, unspecified type (R13.10) Active confirmed Problem 513909489 Gastroesophageal reflux disease, unspecified whether esophagitis present (K21.9) Active confirmed Vital Signs Heart Rate 56 /min 01/02/2024 Temperature 98.1 degrees Fahrenheit 01/02/2024 Height-cm 182.88 cm 01/02/2024 Oximetry 99 % 01/02/2024 Blood pressure diastolic 72 mm Hg 01/02/2024 Weight-kg 96.62 kg 01/02/2024 Height 72 in 01/02/2024 Blood pressure systolic 122 mm Hg 01/02/2024 Weight 213.0 lbs 01/02/2024 BMI 28.88 kg/m2 01/02/2024 Encounters Encounter Location Date Provider Diagnosis [facility] [address] [place] [address] 02/03/2024 Joni Martínez Chronic diarrhea of unknown origin K52.9 ; Gastroesophageal reflux disease, unspecified whether esophagitis present K21.9 ; Nausea and vomiting, unspecified vomiting type R11.2 ; Unintended weight loss R63.4 and Dysphagia, unspecified type R13.10 [facility] [address] [place] [address] 01/02/2024 Garima Betts Chronic diarrhea of unknown origin K52.9 ; Gastroesophageal reflux disease, unspecified whether esophagitis present K21.9 ; Nausea and vomiting, unspecified vomiting type R11.2 ; Unintended weight loss R63.4 ; Feeding difficulties R63.30 ; Dysphagia, unspecified type R13.10 ; History of traumatic brain injury Z87.820 ; Abnormal findings on diagnostic imaging of other parts of digestive tract R93.3 and Liver mass, left lobe R16.0 [facility] [address] [place] [address] 01/15/2024 Garima Betts [facility] [address] [place] [address] 01/22/2024 Joni Martínez Assessments Encounter Date Diagnosis (ICD Code) Assessment Notes Treatment Notes Treatment Clinical Notes Section Notes 01/02/2024 Chronic diarrhea of unknown origin (ICD-10 - K52.9) The patient has a prerequisite risk factors for development of colon cancer. I have discussed the options of diagnostic testing with their advantages and disadvantages. I have recommended diagnostic colonoscopy with possible biopsy and polypectomy. Risks and Benefits: The benefits, risks, and complications were presented to pt. The patient is aware of the risk of bleeding, perforation, infection, and anesthetic complications related to colonoscopy. The patient is aware that although colonoscopy is an accurate procedure, it does have some limitations. As a result, some lesions, including cancer may be missed by colonoscopy. Ample time was given to answer all questions. Instructions given for the bowel prep. Follow up will be determined after the colonoscopy. Refer back to PCP. Diarrhea Recommendations: 1. No liquids 30 minutes before meals and 1 hour after meals 2. No smoothies, milk, ice cream, or soup 3. Fiber Supplement 15 grams/day i.e. Metamucil wafer, 2 wafers with each meal (do not drink recommended liquid) 4. Stop all nonessential medications 5. Avoid concentrated sweets, juices, and sugar alcohols. Scheduleding for a colonoscopy and egd by Dr Costa. Dr Costa will make treatment decisions based on findings and history, as well as follow up recommendation s. Went over antidiarrhea and antireflux measures. Starting pantoprazole for heartburn. Swallow study as well for evaluation. Ordering CT for evaluation of liver along with hepatic function panel. 01/02/2024 Gastroesophageal reflux disease, unspecified whether esophagitis present (ICD-10 - K21.9) Discussion and Plan: The patient has the prerequisite risk factors for the development of esophageal cancer. I have discussed the options of diagnostic testing with their advantages and disadvantages. Surveillance EGD with possible dilation and biopsy is recommended. Risk and Benefits: The benefits, risks, and complications were presented tot he patient. The patient is aware of the risk of bleeding, perforation, and anesthetic complications related to the procedure. Ample time was given to answer all questions. Instructions given for the prep. Heartburn Hints: Make these lifestyle and dietary changes: Avoid fried and fatty foods (such as Kenyan fries and other fast-food items) and spicy foods. Avoid chocolate (including candy bars, chocolate shakes, cupcakes, etc.) Avoid coffee, caffeine-contain ing beverages, and alcohol Avoid citrus fruits and juices, tomato products (spaghetti sauce), and pepper Reduce your portions at mealtimes (less food in your stomach may mean less chance for reflux) Eat meals 2-3 hours before going to sleep Lose excess weight if you are overweight, it may lesson your symptoms Quit smoking (smoking weakens the valve between the esophagus and the stomach, increasing the chance for reflux) Raise the head of your bed with 6-inch blocks; gravity will help minimize reflux of stomach contents into the esophagus (Note: Do not use extra pillows to elevate your head. This can increase pressure on your abdomen) Avoid tight clothing and belts. Scheduleding for a colonoscopy and egd by Dr Costa. Dr Costa will make treatment decisions based on findings and history, as well as follow up recommendation s. Went over antidiarrhea and antireflux measures. Starting pantoprazole for heartburn. Swallow study as well for evaluation. Ordering CT for evaluation of liver along with hepatic function panel. 02/03/2024 Chronic diarrhea of unknown origin (ICD-10 - K52.9) Diagnostic colonoscopy today. 02/03/2024 Gastroesophageal reflux disease, unspecified whether esophagitis present (ICD-10 - K21.9) Diagnostic EGD today. 02/03/2024 Nausea and vomiting, unspecified vomiting type (ICD-10 - R11.2) Diagnostic EGD today. 01/02/2024 Nausea and vomiting, unspecified vomiting type (ICD-10 - R11.2) Scheduleding for a colonoscopy and egd by Dr Costa. Dr Costa will make treatment decisions based on findings and history, as well as follow up recommendation s. Went over antidiarrhea and antireflux measures. Starting pantoprazole for heartburn. Swallow study as well for evaluation. Ordering CT for evaluation of liver along with hepatic function panel. 02/03/2024 Unintended weight loss (ICD-10 - R63.4) Diagnostic EGD today. 01/02/2024 Unintended weight loss (ICD-10 - R63.4) Scheduleding for a colonoscopy and egd by Dr Costa. Dr Costa will make treatment decisions based on findings and history, as well as follow up recommendation s. Went over antidiarrhea and antireflux measures. Starting pantoprazole for heartburn. Swallow study as well for evaluation. Ordering CT for evaluation of liver along with hepatic function panel. 01/02/2024 Feeding difficulties (ICD-10 - R63.30) Scheduleding for a colonoscopy and egd by Dr Costa. Dr Costa will make treatment decisions based on findings and history, as well as follow up recommendation s. Went over antidiarrhea and antireflux measures. Starting pantoprazole for heartburn. Swallow study as well for evaluation. Ordering CT for evaluation of liver along with hepatic function panel. 01/02/2024 Dysphagia, unspecified type (ICD-10 - R13.10) Scheduleding for a colonoscopy and egd by Dr Costa. Dr Costa will make treatment decisions based on findings and history, as well as follow up recommendation s. Went over antidiarrhea and antireflux measures. Starting pantoprazole for heartburn. Swallow study as well for evaluation. Ordering CT for evaluation of liver along with hepatic function panel. 02/03/2024 Dysphagia, unspecified type (ICD-10 - R13.10) Diagnostic EGD today. 01/02/2024 History of traumatic brain injury (ICD-10 - Z87.820) Scheduleding for a colonoscopy and egd by Dr Costa. Dr Costa will make treatment decisions based on findings and history, as well as follow up recommendation s. Went over antidiarrhea and antireflux measures. Starting pantoprazole for heartburn. Swallow study as well for evaluation. Ordering CT for evaluation of liver along with hepatic function panel. 01/02/2024 Abnormal findings on diagnostic imaging of other parts of digestive tract (ICD-10 - R93.3) Scheduleding for a colonoscopy and egd by Dr Costa. Dr Costa will make treatment decisions based on findings and history, as well as follow up recommendation s. Went over antidiarrhea and antireflux measures. Starting pantoprazole for heartburn. Swallow study as well for evaluation. Ordering CT for evaluation of liver along with hepatic function panel. 01/02/2024 Liver mass, left lobe (ICD-10 - R16.0) Scheduleding for a colonoscopy and egd by Dr Costa. Dr Costa will make treatment decisions based on findings and history, as well as follow up recommendation s. Went over antidiarrhea and antireflux measures. Starting pantoprazole for heartburn. Swallow study as well for evaluation. Ordering CT for evaluation of liver along with hepatic function panel. 01/02/2024 Other Colonoscopy: Before Your Procedure material was printed, Learning About Foods That Are Good Sources of Fiber material was printed, Upper GI Endoscopy: Before Your Procedure material was printed Scheduleding for a colonoscopy and egd by Dr Costa. Dr Costa will make treatment decisions based on findings and history, as well as follow up recommendation s. Went over antidiarrhea and antireflux measures. Starting pantoprazole for heartburn. Swallow study as well for evaluation. Ordering CT for evaluation of liver along with hepatic function panel. Plan Of Treatment Pending Test Test Name Order Date CBC w\ Auto Diff [id number] 01/02/2024 Comprehensive Metabolic Panel (CMP) 8005 3 01/02/2024 Hepatic Function Panel 16507 01/02/2024 Diagnostic Colonoscopy-14287 01/02/2024 Esophagram w/ Swallow Function w/pill ch allenge-62024 01/02/2024 EGD, Upper GI Diagnostic-83068 4 Insurance Providers Payer Name Payer Address Payer Phone Subscriber Number Group Number Insured Name Patient Relationship to Insured Coverage Start Date Coverage End Date [employer] [address] [place] [phone] [id number] Naga Ryan Self - patient is the insured Medical (General) History Medical History History ICD Code Chicken Pox Arthritis High Blood Pressure stroke anxiety Depression GERD sleep apnea nausea traumatic brain injury exposure to potentially hazardous chemic al Surgical History Surgery Date(Month/Year) none Hospitalization History Reason Date(Month/Year) [place], [place]- hypertension anxiety an d stomach pain, cramps 2022 [place], [place] hypertension anxiety 20 23 [place], [place] hypertension 2021 2022
--- NOTE | 2024-11-28 18:54 | XRR_ITS ---
PROCEDURE INFORMATION: Exam: XR Chest Exam date and time: 11/28/2024 7:09 PM Age: 38 years old Clinical indication: Shortness of breath; Lt hip pain post trauma; Fall from roof; SOB TECHNIQUE: Imaging protocol: Radiologic exam of the chest. Views: 1 view. COMPARISON: CR XR chest 1V portable [id number] 08/06/2023 12:17 PM FINDINGS: Lungs: Unremarkable. No consolidation. Pleural spaces: Unremarkable. No pleural effusion. No pneumothorax. Heart/Mediastinum: Unremarkable. No cardiomegaly. Bones/joints: Unremarkable. XR/XR chest 1V portable [id number] IMPRESSION: No acute findings.
--- NOTE | 2024-11-28 18:54 | XRR_ITS ---
PROCEDURE INFORMATION: Exam: XR Left Elbow Exam date and time: 11/28/2024 7:09 PM Age: 38 years old Clinical indication: Left; Lt upper ext/elbow pain post trauma; Fall from roof; SOB TECHNIQUE: Imaging protocol: Radiologic exam of the left elbow. Views: 3 or more views. COMPARISON: [place] [id number] 11/28/2024 7:09 PM FINDINGS: Bones/joints: Acute comminuted radial head fracture with intra-articular extension. Slight depression of the fracture fragment by perhaps 2 mm. Only trace joint effusion. Degenerative spurring at the tip of the olecranon. Soft tissues: Mild soft tissue fullness about the elbow. XR/XR elbow LT min 3V* [id number] IMPRESSION: Acute, comminuted and mildly depressed radial head fracture with intra-articular extension and small effusion.
--- NOTE | 2024-11-28 18:54 | XRR_ITS ---
PROCEDURE INFORMATION: Exam: XR Pelvis Exam date and time: 11/28/2024 7:09 PM Age: 38 years old Clinical indication: Left hip; Lt hip pain post trauma; Fall from roof; SOB TECHNIQUE: Imaging protocol: Radiologic exam of the pelvis. Views: 1 or 2 view. COMPARISON: No relevant prior studies available. FINDINGS: Bones/joints: Unremarkable. No acute fracture. No dislocation. Soft tissues: Unremarkable. XR/XR pelvis 1-2V* [id number] IMPRESSION: No acute findings.
--- NOTE | 2024-11-28 18:54 | XRR_ITS ---
PROCEDURE INFORMATION: Exam: XR Right Tibia and Fibula Exam date and time: 11/28/2024 7:09 PM Age: 38 years old Clinical indication: Lower leg; Right; RT lower ext/foot pain post trauma; Fall from roof; SOB; Additional info: Trauma, pain TECHNIQUE: Imaging protocol: Radiologic exam of the right tibia and fibula. Views: 2 views. COMPARISON: CR XR foot RT min 3V* [id number] 11/28/2024 7:09 PM FINDINGS: Bones/joints: No fracture or dislocation. Soft tissues: Remarkable. XR/XR tibia fibula RT 2V [id number] IMPRESSION: No acute findings.
--- NOTE | 2024-11-28 18:54 | XRR_ITS ---
PROCEDURE INFORMATION: Exam: XR Left Humerus Exam date and time: 11/28/2024 7:09 PM Age: 38 years old Clinical indication: Upper arm; Left; Lt upper ext/elbow pain post trauma; Fall from roof; SOB TECHNIQUE: Imaging protocol: Radiologic exam of the left humerus. Views: 2 or more views. COMPARISON: CR XR chest 1V portable [id number] 08/06/2023 12:17 PM FINDINGS: Bones/joints: Humerus appears intact. Soft tissues: Unremarkable. XR/[place] [id number] IMPRESSION: No acute findings.
--- NOTE | 2024-11-28 18:54 | XRR_ITS ---
PROCEDURE INFORMATION: Exam: XR Right Foot Exam date and time: 11/28/2024 7:09 PM Age: 38 years old Clinical indication: Right; RT lower ext/foot pain post trauma; Fall from roof; SOB TECHNIQUE: Imaging protocol: Radiologic exam of the right foot. Views: 3 or more views. COMPARISON: CR XR tibia fibula RT 2V [id number] 11/28/2024 7:09 PM FINDINGS: Bones/joints: No acute fracture or dislocation is apparent. No joint effusion. Soft tissues: Unremarkable. XR/XR foot RT min 3V* [id number] IMPRESSION: No acute findings.
--- NOTE | 2024-11-28 18:57 | CTR_ITS ---
PROCEDURE INFORMATION: Exam: CT Head Without Contrast Exam date and time: 11/28/2024 7:26 PM Age: 38 years old Clinical indication: Injury or trauma; Blunt trauma (contusions or hematomas); 12 foot fall from ladder onto ground. C/O head and neck pain. ; Additional info: Aphasia, AMS TECHNIQUE: Imaging protocol: Computed tomography of the head without contrast. Radiation optimization: All CT scans at this facility use at least one of these dose optimization techniques: automated exposure control; mA and/or kV adjustment per patient size (includes targeted exams where dose is matched to clinical indication); or iterative reconstruction. COMPARISON: [place] [id number] 04/08/2023 2:10 PM RADIATION DOSE METRICS: Total DLP (mGy-cm): 1026.34 FINDINGS: Brain: No acute infarction, hemorrhage, mass, or extra-axial fluid collection is identified. No midline shift. Cerebral ventricles: No hydrocephalus. Paranasal sinuses: Imaged right maxillary sinus is opacified. Mastoid air cells: Mastoid air cells are grossly clear. Bones: Calvarium appears intact. Soft tissues: Unremarkable. CT/CT head wo con* [id number] IMPRESSION: 1. No acute intracranial abnormality. 2. Right maxillary sinus disease.
--- NOTE | 2024-11-28 18:58 | W.ED.FALL ---
HPI - Fall General: Chief Complaint: Fall Stated Complaint: Fell off roof Time Seen by Provider: 11/28/24 18:48 History of Present Illness: Chief complaint is fall of the roof with injury to the left arm right foot and ankle. He states he hit the left side of his head and his left hip but he thinks those are fine. No neck or back pain. No numbness or tingling in his arms or legs that is new. He is not on a blood thinner. No alcohol involved. He states that his feet were about to step onto the rough at about 12 feet when the ladder started sliding and injured his right foot and then he tried to catch the edge of the rough on the gutters and then fell to the ground. This occurred about an hour prior to arrival. No loss consciousness. No chest or abdominal pain or injury. No back pain or injury. Related Data Home Medications ?Medication ?Instructions ?Recorded ?Confirmed acetaminophen 500 mg tablet 1,000 mg PO QID PRN Pain 06/01/20 08/06/23 (Tylenol Extra Strength) cetirizine 10 mg capsule (All Day 10 mg PO QAM 06/01/20 08/06/23 Allergy (cetirizine)) naproxen 500 mg tablet 500 mg PO BID PRN Pain 06/01/20 08/06/23 omeprazole magnesium 20 mg 20 mg PO QAM 06/01/20 08/06/23 capsule,delayed release ([employer] Architect (omeprazole)) cholecalciferol (vitamin D3) 50 50 mcg PO DAILY 03/28/21 08/06/23 mcg (2,000 unit) capsule (Vitamin D3) diphenhydramine HCl 25 mg capsule 25 mg PO BEDTIME PRN Sleep 03/28/21 08/06/23 (Benadryl) fluticasone propionate 50 2 spray intranasal DAILY PRN 03/28/21 08/06/23 mcg/actuation nasal Allergy Symptoms spray,suspension prazosin 5 mg capsule 5 mg PO BEDTIME PRN UNKNOWN 03/28/21 08/06/23 thiamine HCl (vitamin B1) 100 mg 100 mg PO DAILY 03/28/21 08/06/23 tablet aripiprazole 10 mg tablet 10 mg PO DAILY 08/06/23 08/06/23 multivitamin with minerals-folic 1 tab PO DAILY 08/06/23 08/06/23 acid 200 mcg chewable tablet (Multivitamin Gummies) Previous Rx's ?Medication ?Instructions ?Recorded cephalexin 500 mg capsule 500 mg PO TID 5 days #15 caps 11/28/24 hydrocodone 5 mg-acetaminophen 325 2 tab PO Q6H PRN pain #16 tabs 11/28/24 mg tablet Allergies Allergy/AdvReac Type Severity Reaction Status Date / Time No Known Allergies Allergy Verified 08/06/23 11:47 [facility] ED PFSH: Medical History Peroneal nerve injury Foot drop, bilateral TBI (traumatic brain injury) PTSD (post-traumatic stress disorder) Broken finger Broken rib Family History Father Colon cancer Cancer Social History Smoking and tobacco/nicotine status: former use of tobacco/nicotine Second hand smoke exposure: Yes Alcohol intake: current Alcohol intake frequency: few times a week Alcohol type: hard liquor Substance/Drug Use: current Substance/Drug use frequency: few times a week Adopted: No Caregiver/support person: Yes Lives independently: Yes Household members: spouse Housing: House Marital status: Number of children: 2 Highest education level completed: Associate Degree: Occupational, Technical, Vocational Program service: Yes Current occupational status: unemployed Pets and animals: Yes Leisure activites: games, fishing and other Leisure activities details: driving Sexually active: Yes Do you think of yourself as: Straight/Heterosexual Current gender identity: Male Zoila/Oriental Orthodox: Sikhism Special zoila needs: No Agree to transfusion: Yes Physical Exam Narrative: EXAM NARRATIVE: Patient is alert oriented mild distress. No visible signs of trauma to his head. Pupils are equal reactive light. Full range ocular motion. Moist mucous membranes. No vertebral tenderness over his neck or back. He sits up and moves freely in the bed except for his left arm. He has pain with movement of the left arm but has intact pulses motor and sensation. He moves his hand without difficulty and moves his wrist. He does move his left elbow although he states he has pain with movement of the left elbow. He moves his left shoulder freely. He moves the right arm and left leg freely. He has pain with movement of the right ankle and right foot. He has some bleeding around the margins of the big toe nail on the right foot. He has intact pulses motor and sensation. He has no pain with range of motion at the right knee or proximal tenderness above the ankle. No tenderness over the left leg or pain with movement of the left hip. His abdomen soft nontender with no guarding or rebound. He tolerates deep palpation throughout. He has no chest wall tenderness. Heart regular rhythm and lung sounds are clear. Speech is clear and he shows ability to reason and he is alert and oriented x 4 with appropriate affect Course Vital Signs: Vital signs: Vital Signs Temperature 98.4 F 11/28/24 18:26 Pulse Rate 66 11/28/24 20:00 Respiratory Rate 18 11/28/24 20:00 Blood Pressure 134/85 11/28/24 20:00 Pulse Oximetry 98 11/28/24 20:00 Oxygen Delivery Me thod Room Air 11/28/24 20:00 MDM - Fall Medical Decision Making Patient with fall of estimated 12 feet. He did hit his head but states that was nothing and no concern for serious injury but will get a CT of his head with the mechanism. He moves his neck freely and has no neck tenderness. He is able to converse and does not show significant distracting injury limiting his ability to reason and evaluate other areas. His abdomen soft nontender with no guarding or rebound or physical signs of trauma. Will x-ray his left arm and his right foot and ankle and get a pelvis and chest x-ray and a CT of the head. I discussed pain treatment options and he opted for IV medication. I ordered 50 mcg of fentanyl IV for pain as well as 4 mg Zofran IV for nausea with the pain meds. I ordered 1 L normal saline IV fluid bolus as he states he has been outside working all day. CT head cervical spine negative for acute process. CT of the cervical spine was added as patient started developing some neck discomfort. Patient still moving his neck freely. I suspect cervical strain. I advised limits of CT. X-ray of the chest pelvic x-ray and x-ray of the right foot and right tib-fib were negative for acute process to my interpretation. Patient left elbow and humerus however shows radial head fracture. Patient does have some mild subungual hematoma on the right big toe. I offered removal of the toenail. After informed discussion we will leave the nail intact and start on Keflex. Advised potential risk for developing infection including infection of the bone. Advised limitations of plain film and potential for occult fracture and activity restrictions. Will place him in a splint on his left elbow in a sling. I discussed pain treatment options and addictive nature of opiates and alternative treatment options. Will prescribe short course of hydrocodone and refer to orthopedic surgeon. Patient neurovascular intact post splint placement. I advised signs symptoms of worsening or delayed presentations of trauma such as any abdominal pain or shortness of breath or worsening headache or loss of feeling or color to foot or hand or any worsening to watch and return for Lab Data Radiology Impressions Chest X-Ray 11/28/24 18:54 IMPRESSION: No acute findings. Elbow X-Ray 11/28/24 18:54 IMPRESSION: Acute, comminuted and mildly depressed radial head fracture with intra-articular extension and small effusion. Foot X-Ray 11/28/24 18:54 IMPRESSION: No acute findings. Humerus X-Ray 11/28/24 18:54 IMPRESSION: No acute findings. Pelvis X-Ray 11/28/24 18:54 IMPRESSION: No acute findings. Tibia/Fibula X-Ray 11/28/24 18:54 IMPRESSION: No acute findings. Head CT 11/28/24 18:57 IMPRESSION: 1. No acute intracranial abnormality. 2. Right maxillary sinus disease. Cervical Spine CT 11/28/24 19:24 IMPRESSION: No acute cervical spine fracture. All radiology interpretation(s) finalized by discharge Discharge Plan Discharge Patient Disposition: Home Clinical Impression: Closed fracture of radial head, Contusion of scalp, Acute cervical myofascial strain, Injury of right great toe Condition: Stable Prescriptions: New hydrocodone-acetaminophen 5-325 mg tablet 2 tab PO Q6H PRN (Reason: pain) Qty: 16 0RF cephalexin 500 mg capsule 500 mg PO TID 5 Days Qty: 15 0RF No Action omeprazole magnesium [Acid [employer] Architect (omeprazole)] 20 mg capsule,delayed release(DR/EC) 20 mg PO QAM acetaminophen [Tylenol Extra Strength] 500 mg tablet 1,000 mg PO QID PRN (Reason: Pain) naproxen 500 mg tablet 500 mg PO BID PRN (Reason: Pain) All Day Allergy (cetirizine) 10 mg capsule 10 mg PO QAM thiamine HCl (vitamin B1) 100 mg Tablet 100 mg PO DAILY prazosin 5 mg Capsule 5 mg PO BEDTIME PRN (Reason: UNKNOWN) diphenhydramine HCl [Benadryl] 25 mg Capsule 25 mg PO BEDTIME PRN (Reason: Sleep) fluticasone propionate [Flonase] 50 mcg/actuation [place],Suspension 2 spray INTRANASAL DAILY PRN (Reason: Allergy Symptoms) cholecalciferol (vitamin D3) [Vitamin D3] 50 mcg (2,000 unit) Capsule 50 mcg PO DAILY aripiprazole 10 mg Tablet 10 mg PO DAILY Multivitamin Gummies 200 mcg Tablet,Chewable 1 tab PO DAILY Discharge Orders: Discharge ED (Routine); Ordered 11/28/24 Ordered By: Justin Collins Referrals: Javi Pierre MD [Physician, Orthopedics] - 7-10 days Referral Note: left elbow frx Patient Instructions: Opioid Safety, Pain Management, Patient Portal & Niall Instructions Activity Restrictions/Additional Instructions: No use of your left elbow until cleared by orthopedic surgeon. Do not put weight on your right big toe or foot as it causes pain. Keep your foot elevated. Return immediately if any shortness of breath or abdominal pain, worsening concerning headache, vomiting, confusion, loss of feeling or color to your hand or foot, increased pain or swelling in your foot, any worse or concerns. Follow-up on formal x-ray interpretations with your doctor. Print Language: Japanese Coding Level of Care Code ED Credit Intern for Geronimo Hearn
--- NOTE | 2024-11-28 19:24 | CTR_ITS ---
PROCEDURE INFORMATION: Exam: CT Cervical Spine Without Contrast Exam date and time: 11/28/2024 7:28 PM Age: 38 years old Clinical indication: Injury or trauma; Blunt trauma; 12 foot fall from ladder onto ground. C/O head and neck pain. ; Additional info: Trauma, pain TECHNIQUE: Imaging protocol: Computed tomography of the cervical spine without contrast. Radiation optimization: All CT scans at this facility use at least one of these dose optimization techniques: automated exposure control; mA and/or kV adjustment per patient size (includes targeted exams where dose is matched to clinical indication); or iterative reconstruction. COMPARISON: CT head wo con* [id number] 11/28/2024 7:26 PM RADIATION DOSE METRICS: Total DLP (mGy-cm): 391.57 FINDINGS: Bones: No acute fracture. Incomplete fusion of posterior ring of C1, a normal anatomic variant. Normal alignment. No significant disc herniation. No significant spinal canal stenosis. No high-grade neural foraminal narrowing. Lungs: Lung apices are unremarkable. Soft tissues: Unremarkable. CT/CT cervical spin wo con* [id number] IMPRESSION: No acute cervical spine fracture.
[2024-11-28 19:46] VITALS: RESP 18
[2024-11-28] MEDS: fentaNYL 50 mcg/mL INJ 2mL IVP (19:46)
[2024-11-28] MEDS: ondansetron 2 mg/ML SDV 2 mL 4 MG IVP (19:47)
[2024-11-28 20:00] VITALS: BP 134/85; PULSE 66; RESP 18; O2SAT 98
[2024-11-28] MEDS: HYDROcodone-acetaminophen 10-325 mg Tablet 1 TAB PO (20:55)
--- NOTE | 2024-11-28 21:16 | ED_ITS ---
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 Flanging Machine Operator (omeprazole)) cholecalciferol (vitamin D3) 50 50 mcg PO DAILY 08/06/23 mcg (2,000 unit) capsule (Vitamin D3) diphenhydramine HCl 25 mg capsule 25 mg PO BEDTIME PRN Sleep 03/28/21 08/06/23 (Benadryl) fluticasone propionate 50 2 spray intranasal DAILY PRN 03/28/21 08/06/23 mcg/actuation nasal Allergy Symptoms spray,suspension prazosin 5 mg capsule 5 mg PO BEDTIME PRN UNKNOWN 03/28/21 08/06/23 thiamine HCl (vitamin B1) 100 mg 100 mg PO DAILY 03/2808/06/23 tablet aripiprazole 10 mg tablet 10 mg PO DAILY 08/06/2307/25 multivitamin with minerals-folic 1 tab PO DAILY 08/06/23 acid 200 mcg chewable tablet (Multivitamin Gummies) Previous Rx's ?Medication ?Instructions ?Recorded cephalexin 500 mg capsule 500 mg PO TID 5 days #15 cap s 11/28/24 hydrocodone 5 mg-acetaminophen 325 2 tab PO Q6H PRN pa in #16 tabs 11/28/24 mg tablet Allergies Allergy/AdvReac Type Severity Reaction Status Date / Time No Known Allergies Allergy Verified 08/06/23 11:47 [facility] ED PFSH: Medical History Peroneal nerve injury Foot drop, bilateral TBI (traumatic brain injury) PTSD (post-traumatic stress disorder) Broken finger Broken rib Family History Father Colon cancer Cancer Social History Smoking and tobacco/nicotine status: former use of tobacco/nicotine Second hand smoke exposure: Yes Alcohol intake: current Alcohol intake frequency: few times a week Alcohol type: hard liquor Substance/Drug Use: current Substance/Drug use frequency: few times a week Adopted: No Caregiver/support person: Yes Lives independently: Yes Household members: spouse Housing: House Marital status: Number of children: 2 Highest education level completed: Associate Degree: Occupational, Technical, Vocational Program service: Yes Current occupational status: unemployed Pets and animals: Yes Leisure activites: games, fishing and other Leisure activities details: driving Sexually active: Yes Do you think of yourself as: Straight/Heterosexual Current gender identity: Male Zoila/Uatsdin: Orthodox Special zoila needs: No Agree to transfusion: Yes Course Vital Signs: Vital signs: Vital Signs Temperature 98.4 F 11/28/24 18:26 Pulse Rate 66 11/28/24 20:00 Respiratory Rate 18 11/28/24 20:00 Blood Pressure 134/85 11/28/24 20:00 Pulse Oximetry 98 11/28/24 20:00 Oxygen Delivery Me thod Room Air 11/28/24 20:00 MDM - Fall Lab Data Radiology Impressions Chest X-Ray 11/28/24 18:54 IMPRESSION: No acute findings. Elbow X-Ray 11/28/24 18:54 IMPRESSION: Acute, comminuted and mildly depressed radial head fracture with intra-articular extension and small effusion. Foot X-Ray 11/28/24 18:54 IMPRESSION: No acute findings. Humerus X-Ray 11/28/24 18:54 IMPRESSION: No acute findings. Pelvis X-Ray 11/28/24 18:54 IMPRESSION: No acute findings. Tibia/Fibula X-Ray 11/28/24 18:54 IMPRESSION: No acute findings. Head CT 11/28/24 18:57 IMPRESSION: 1. No acute intracranial abnormality. 2. Right maxillary sinus disease. Cervical Spine CT 11/28/24 19:24 IMPRESSION: No acute cervical spine fracture. Discharge Plan Discharge Patient Disposition: Home Clinical Impression: Closed fracture of radial head, Contusion of scalp, Acute cervical myofascial strain, Injury of right great toe Condition: Stable Prescriptions: New hydrocodone-acetaminophen 5-325 mg tablet 2 tab PO Q6H PRN (Reason: pain) Qty: 16 0RF cephalexin 500 mg capsule 500 mg PO TID 5 Days Qty: 15 0RF No Action omeprazole magnesium [Acid Flanging Machine Operator (omeprazole)] 20 mg capsule,delayed release(DR/EC) 20 mg PO QAM acetaminophen [Tylenol Extra Strength] 500 mg tablet 1,000 mg PO QID PRN (Reason: Pain) naproxen 500 mg tablet 500 mg PO BID PRN (Reason: Pain) All Day Allergy (cetirizine) 10 mg capsule 10 mg PO QAM thiamine HCl (vitamin B1) 100 mg Tablet 100 mg PO DAILY prazosin 5 mg Capsule 5 mg PO BEDTIME PRN (Reason: UNKNOWN) diphenhydramine HCl [Benadryl] 25 mg Capsule 25 mg PO BEDTIME PRN (Reason: Sleep) fluticasone propionate [Flonase] 50 mcg/actuation [place],Suspension 2 spray INTRANASAL DAILY PRN (Reason: Allergy Symptoms) cholecalciferol (vitamin D3) [Vitamin D3] 50 mcg (2,000 unit) Capsule 50 mcg PO DAILY aripiprazole 10 mg Tablet 10 mg PO DAILY Multivitamin Gummies 200 mcg Tablet,Chewable 1 tab PO DAILY Discharge Orders: Discharge ED (Routine); Ordered 11/28/24 Ordered By: Justin Collins Other Ambulatory Orders: DME: Wheelchair (Order) Location: None Selected Ordered By: Justin Collins Referrals: Javi Pierre MD [Physician, Orthopedics] - 7-10 days Referral Note: left elbow frx Patient Instructions: Opioid Safety, Pain Management, Patient Portal & Niall Instructions Activity Restrictions/Additional Instructions: No use of your left elbow until cleared by orthopedic surgeon. Do not put weight on your right big toe or foot as it causes pain. Keep your foot elevated. Return immediately if any shortness of breath or abdominal pain, worsening concerning headache, vomiting, confusion, loss of feeling or color to your hand or foot, increased pain or swelling in your foot, any worse or concerns. Follow-up on formal x-ray interpretations with your doctor. Print Language: New Zealander Coding Level of Care Code ED Drop Count Associate for Geronimo Hearn
[2024-11-28 22:07] VITALS: BP 153/96; PULSE 77; RESP 16; O2SAT 97
[2024-11-28 22:43] VITALS: BP 146/87; PULSE 71; RESP 18; O2SAT 97
--- NOTE | 2024-11-30 09:20 | DCPLANNER ---
messaged ortho for er f/u
== END 2024-11-28 22:44 | disposition home or self-care (01) ==
PROVIDERS: Emergency Provider Emergency Medicine
DX: S52.92XA Unspecified fracture of left forearm, initial encounter for closed fracture (principal); S00.03XA Contusion of scalp, initial encounter; S16.1XXA Strain of muscle, fascia and tendon at neck level, initial encounter; S99.921A Unspecified injury of right foot, initial encounter; Z87.891 Personal history of nicotine dependence; W13.2XXA Fall from, out of or through roof, initial encounter
CPT/HCPCS: 29105; 70450; 71045; 72125; 72170; 73060; 73080; 73590; 73630; 96374; 96375; 99285; J2405; J3010; J7030; J9999

== ENCOUNTER 2025-02-25 09:04 | Outpatient (CLI) | payer OTHER, SELFPAY ==
--- NOTE | 2025-02-25 09:08 | US_ITS ---
WS: [id number] ABDOMINAL ULTRASOUND LIMITED REASON FOR VISIT: RUQ PAIN TECHNIQUE: Grayscale and Doppler ultrasound examination of the abdomen. FINDINGS: Pancreas: No mass, ductal dilatation or calcification. Abdominal aorta and IVC: Unremarkable Liver: Liver measures 14.8 cm in length. Mildly increased echogenicity, equivocal. No focal lesion. Normal portal venous blood flow. No intrahepatic bile duct dilatation. Gallbladder: Gallbladder wall thickness measures 0.2 mm. No calculi. Normal common bile duct. Right kidney: Right kidney measures 11.2 cm x 5.7 cm x 5.4 cm. Right kidney cortex measures 1.1 cm. No mass, hydronephrosis, or calculus. No ascites. US/US abdomen limited [id number] IMPRESSION: Questionable increased echogenicity of the liver which may indicate fatty infil tration. The examination is otherwise unremarkable.
== END 2025-02-25 09:05 | disposition home or self-care (01) ==
LOC: RAD 09:05
PROVIDERS: Visit Provider Nurse Practitioner
DX: Z01.89 Encounter for other specified special examinations (principal); R93.2 Abnormal findings on diagnostic imaging of liver and biliary tract
CPT/HCPCS: 76705